=== PATIENT | female | born 1980 | race Hispanic/Latino ===

== ENCOUNTER 2017-02-22 19:17 | Inpatient (IN) | payer SELFPAY ==
[~2017-02-22] VITALS: Ht 157.5 cm; Wt 74.8 kg
[2017-02-22] MEDS ORDERED: METHOTREXATE 1 G1 GM SUB-Q (20:00)
[2017-02-22] MEDS ORDERED: ADVIL200 MG PO (20:01)
[2017-02-22] MEDS ORDERED: ORENCIA125 MG/1 M SUB-Q (20:03)
[2017-02-22] MEDS ORDERED: VITAMIN D1000 UNIT PO (20:05)
[2017-02-25] MEDS ORDERED: MIRALAX17 GM PO (13:00)
[2017-02-25] MEDS ORDERED: CARAFATE1 GM/10 ML PO (13:43)
== END 2017-02-25 14:30 | disposition home or self-care (01) | DRG 392 ==
LOC: ED 19:17 → MS 19:19
PROVIDERS: ADMIT Internal Medicine
DX: A08.4 Viral intestinal infection, unspecified (principal); M06.9 Rheumatoid arthritis, unspecified; T39.391A Poisoning by other nonsteroidal anti-inflammatory drugs [NSAID], accidental (unintentional), initial encounter
CPT/HCPCS: 36415; 74177; 80053; 81001; 82533; 83690; 84703; 85025; 87088; 96361; 96374; 96375; 96376; 99285; G0378; J1170; J2270; J2405; J2550; J7030; J7120; Q9967

== ENCOUNTER 2017-09-17 14:02 | Inpatient (IN) | payer OTHER ==
[~2017-09-17] VITALS: Ht 157.5 cm; Wt 74.1 kg
[~2017-09-17 14:02] MED LIST: ADVIL200 MG PO; CARAFATE1 GM/10 ML PO; METHOTREXATE 1 G1 GM SUB-Q; MIRALAX17 GM PO; ORENCIA125 MG/1 M SUB-Q; VITAMIN D50000 UNI1 PO
--- NOTE | 2017-09-17 21:02 | NUR ---
RECEIVED REPORT FROM ALVIN RN IN ED, AT 2019. PT UP TO VOID, COMPLAINS OF ABDOMINAL DISCOMFORT, NAUSEATED. LR BOLUS INFUSING PER ORDER. PT ABLE TO GET OUT OF BED BY SELF TO BATHROOM. ABLE TO UNDERSTAND AND SPEAK SAUDI ARABIAN. IS NPO, ON ROOM AIR, IV IN LEFT AC. EDUCATED SECURITIES COUNSELOR LIGHT
--- NOTE | 2017-09-17 21:34 | NUR ---
PT LOUDLY HEARD RETCHING, AND VOMITING. APPROX 20 CC GREEN BILE. MED WITH 10 MG REGLAN IV. FAMILY WAS VISTING BUT LEFT. BOLUS CONTINUES PER ORDER, WILL WAIT TO ADM PO MEDICATIONS AT THIS TIME.
--- NOTE | 2017-09-17 21:51 | NUR ---
BS WAS 266, MED WITH 3 UNITS INSULIN PER ORDER, PT STATES SHE FEELS BETTER AFTER THE REGLAN MEDICATION. INSTRUCTED PT TO CALL IF THE IV PUMP ALARMS.
--- NOTE | 2017-09-17 22:12 | NUR ---
pt with eyes closed, resp even and unlabored. bolus complete, LR now infusing at 125 per order call light within reach.
--- NOTE | 2017-09-17 22:42 | NUR ---
IN PT'S ROOM TO ADMINISTER THE REST OF HER MEDICATIONS NOW THAT SHE IS NO LONGER VOMITING. PT STATES SHE FEELS BETTER AND HAS NO PAIN AT THIS TIME. PT DENIES FURTHER NEEDS AT THIS TIME.
--- NOTE | 2017-09-18 01:02 | NUR ---
PT IS RESTING WITH EYES CLOSED, RESPIRATIONS ARE EVEN AND NONLABORED. CALL LIGHT IS WITHIN REACH.
--- NOTE | 2017-09-18 02:48 | NUR ---
WOKE PT TO CHECK BS AND ADMINISTER MEDICATIONS. PT DENIES PAIN AT THIS TIME AND ANY FURTHER NEEDS.
--- NOTE | 2017-09-18 06:16 | NUR ---
WOKE PT TO GIVE MORNING MED. PT DENIES PAIN OR ANY FURTHER NEEDS AT THIS TIME. CALL LIGHT IS WITHIN REACH.
--- NOTE | 2017-09-18 07:53 | NUR ---
BEDSIDE REPORT RECEIVED FROM FOZIA DOYLE. PATIENT AWAKE LYING IN BED. WHITE BOARD UPDATED.
--- NOTE | 2017-09-18 08:35 | NUR ---
SOME BARRIERS TO COMMUNICATION D/T BOLIVIAN A SECOND LANGUAGE FOR PATIENT. IVF INFUSING AT 125. PUMP CLEARED. PATIENT UP TO BATHROOM TO VOID 400ML DARK YELLOW URINE. PATIENT REPORTS NO PAIN/NAUSEA, BUT SOME GRUNTING WHEN AMBULATING TO BATHROOM. NON-SLIP SOCKS PROVIDED TO PATIENT. ACTIVE BOWEL TONES. NO EDEMA. A1C LAB APPEARS TO BE ELEVATED AT 9
--- NOTE | 2017-09-18 10:15 | NUR ---
ANA PUMP TENDER VISITING WITH PATIENT. REPORTED TO THIS RN THAT SHE WAS HAVING ABDOMINAL PAIN. 2MG IV MORPHINE GIVEN. PATIENT ASSISTED TO BATHROOM. VOIDED 450ML. VISITOR AT BEDSIDE. PATIENT BACK IN BED NOW WITH LIGHTS DIM.
--- NOTE | 2017-09-18 12:00 | NUR ---
BLOOD SUGAR 149. CARAFATE GIVEN. DR LI IN TO SEE PATIENT. WILL START ON METFORMIN. AND CLEAR LIQUID DIET STARTED.
--- NOTE | 2017-09-18 12:50 | NUR ---
ANSWERED PT CALL LIGHT. PT VOMITED 300 ML OF EMESIS AND WAS DRY HEAVING. RN NOTIFIED.
--- NOTE | 2017-09-18 13:42 | NUR ---
PT NAUSEOUS AND VOMITING AT 1330. PHENERGAN 12.5MG GIVEN IV. SIGNIFICANT OTHER AT BEDSIDE. COLD CLOTH PROVIDED TO PATIENT.
--- NOTE | 2017-09-18 14:55 | NUR ---
PT RESTING QUIETLY WITH EYES CLOSED IN BED.
--- NOTE | 2017-09-18 18:06 | NUR ---
ACCU CHECKS Q6H. STARTED METFORMIN TODAY. A1C 9.3. CARAFATE BEFORE MEALS. CLEAR LIQUIDS- GO SLOW! ZOFRAN AND PHENERGAN GIVEN TODAY. LR @ 75. SBA TO BATHROOM. WELSH SECOND LANGUAGE.
--- NOTE | 2017-09-18 20:30 | NUR ---
ROUNDED CHARGE. PATIENT IS RESTING IN BED VISITING WITH FAMILY. NO NEEDS NOTED. NO COMMETNS, QUESTIONS, OR CONCERNS. CALL LIGHT IN REACH.
--- NOTE | 2017-09-19 05:03 | NUR ---
Up to brp, voided, back to bed, no c/o pain or requests. Information given verbally and written r/t diabetic teaching given in [place], stated understnading
--- NOTE | 2017-09-19 06:03 | NUR ---
Pt continues on cbg's q6h, teaching given to pt verbally and written in [place], all questions answered to her satisfaction. Pt seems to have a hard time doing fingerstick and giving own insulin when this RN tryed to teach her. Pt has arthritis in hands and it makes it difficult to place a good ggrasp on lancets/syringes. Continue to reinforce teaching. No c/o abd pain or n/v. IVF infusing w/o problems. Pt tolerating clear liquid diet. Up to brp with one assist. [place]ian speaking, all intructions given in [place]ian, all questions answered to pts satisfaction, continue to reinforce diabetic teaching
--- NOTE | 2017-09-19 07:56 | NUR ---
DID PATIENT'S BLOOD SUGAR CHECK ALSO ASKED HER IF SHE WOULD LIKE TO TAKE A SHOWER AND SHE SAID THAT SHE TOOK ONE LAST NIGHT SO SHE DOESN'T WANT ONE TODAY.
--- NOTE | 2017-09-19 10:09 | NUR ---
PATIENT UP TO BATHROOM, PATIENT REPORTS FEELING " HARD STOOL IN LOWER, HAVEN'T POOPED SINCE SATURDAY". DISCUSSED WITH DR. LI NEW ORDER FOR SUPPOSITORY. PROVIDED PATIENT WITH EDUCATION ON METFORMIN IN CITIZ[place] OF [place], DISCUSSED SIDE EFFECTS. REASSURED PATIENT NO NEEDLES, AND DISCUSSED METFORMIN MORE. DISCUSSED HIGH/LOW SIGNS OF SIDE EFFECTS. PATIENT ADVANCED TO FULL LIQUIDS, PROVIDED PATIENT WITH VANILLA PUDDING AND ORDERED MASH POTATO AND GRAVY.
--- NOTE | 2017-09-19 10:28 | NUR ---
MED REC COMPLETE
[2017-09-19] MEDS ORDERED: OMEPRAZOLE20 MG PO (13:15)
[2017-09-19] MEDS ORDERED: METOCLOPRAMIDE H5 MG PO (13:15)
[2017-09-19] MEDS ORDERED: SUCRALFATE1 GM PO (13:16)
[2017-09-19] MEDS ORDERED: METFORMIN HCL500 MG PO (13:16)
== END 2017-09-19 16:05 | disposition home or self-care (01) | DRG 392 ==
LOC: ED 14:02 → MS 20:19
PROVIDERS: ADMIT Internal Medicine
DX: K29.00 Acute gastritis without bleeding (principal); T39.315A Adverse effect of propionic acid derivatives, initial encounter; E11.9 Type 2 diabetes mellitus without complications; M06.9 Rheumatoid arthritis, unspecified; Z79.899 Other long term (current) drug therapy
CPT/HCPCS: 36415; 74177; 80048; 80053; 81001; 83036; 83690; 83735; 84703; 85025; 96366; 96372; 96374; 96375; 99285; J1170; J1650; J2270; J2405; J2550; J2765; J7120; Q9967

== ENCOUNTER 2020-01-05 16:33 | Emergency (ER) | payer SELFPAY ==
[~2020-01-05] VITALS: Ht 157.5 cm; Wt 74.1 kg
--- OUTSIDE RECORDS SUMMARY | ~2020-01-05 | XMS | Encounter Summary ---
Demographics + + + | Address | [address] | | | [place] [address] | + + + | Home Phone | | + + + | Preferred Language | Unknown | + + + | Marital Status | | + + + | Quaker Affiliation | Unknown | + + + | Race | White | + + + | Ethnic Group | or | + + + Author + + + | Author | [facility] | + + + | Organization | [facility] | + + + | Address | Unknown | + + + | Phone | Unavailable | + + + Support + + +---------+ + | Name | Relationship | Address | Phone | + + +---------+ + | Brittanie Remy | ECON | Unknown | | + + +---------+ + Care Team Providers + +------+ + | Care Button Clamper Name | Role | Phone | + +------+ + | Isacc Chi | PCP | | + +------+ + Reason for Visit + + + | Reason | Comments | + + + | RA - Rheumatoid | | | arthritis | | + + + | Medication | | | management | | + + + | Follow-up visit | | + + + Intake Referral (Routine) +--------+--------+ + + + + | Status | Reason | Specialty | Diagnoses / | Referred By | Referred To | | | | | Procedures | Contact | Contact | +--------+--------+ + + + + | Closed | | Rheumatology | Diagnoses | Tieelbert, | [facility] [facility] | | | | | Rheumatoid | Isacc Briones, | [facility] [address] | | | | | arthritis, | [place] | [facility] | | | | | unspecified | Medical | Loop | | | | | | [facility] [address] | Physician's | | | | | [address] | [address], [address] | | | | | | Street | Floor | | | | | | [place], [place] | [place], [place] | | | | | | [address] | [address] | | | | | | Phone: | Phone: | | | | | | [phone] | [phone] | | | | | | Fax: | Fax: | | | | | | [phone] | [phone] | +--------+--------+ + + + + Encounter Details +--------+---------+ + + + | Date | Type | Department | Care Team | Description | +--------+---------+ + + + | 12/26/ | Office | Rheumatology at | Afshan Wright | 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 | | 2016 | Visit | Physicians 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, [employer]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 [address] | rheumatoid arthritis | | | | [address] | [address] | ([facility]) (Primary Dx); | | | | Loop Physician's | [place], [place] | Long-term use of | | | | Pavilion, 4th Floor | [address] | high-risk | | | | [place], [place] | [phone] | medication; Neck | | | | [address] | | pain | | | | [phone] | | | +--------+---------+ + + + Social History + +-------+ +--------+------+ | Tobacco Use | Types | Packs/Day | Years | Date | | | | | Used | | + +-------+ +--------+------+ | Never Smoker | | | | | + +-------+ +--------+------+ + + +---------+ + | Alcohol Use | Drinks/Week | oz/Week | Comments | + + +---------+ + | Not Asked | 0 Standard drinks | 0.0 | | | | or equivalent | | | + + +---------+ + + + + | Sex Assigned at | Date Recorded | | | | + + + | Not on file | | + + + documented as of this encounter Last Filed Vital Signs + + + + + | Vital Sign | Reading | Time Taken | Comments | + + + + + | Blood Pressure | 122/74 | 12/27/2015 1:25 PM | | | | | PDT | | + + + + + | Pulse | 84 | 12/27/2015 1:25 PM | | | | | PDT | | + + + + + | Temperature | - | - | | + + + + + | Respiratory Rate | - | - | | + + + + + | Oxygen Saturation | - | - | | + + + + + | Inhaled Oxygen | - | - | | | Concentration | | | | + + + + + | Weight | 76.7 kg (169 lb) | 12/27/2015 1:25 PM | | | | | PDT | | + + + + + | Height | 157.5 cm (5' 2") | 12/27/2015 1:25 PM | | | | | PDT | | + + + + + | Body Mass Index | 30.91 | 12/27/2015 1:25 PM | | | | | PDT | | + + + + + documented in this encounter Patient Instructions Patient Instructions Afshan Wright FNP - 12/27/2015 1:46 PM PDTSTOP XELJANZ abatacept Renetta: Abbiia Qu es abatacept? Abatacept es alannah protena hecha por el hombre que previene el sistema inmunolgico de traore cuerpo de atacar tejidos gt las articulaciones. El sistema inmunolgico de traore cuerpo a co mbatir las infecciones. En personas con trastornos autoinmunes, el sistema inmunolgico con funde las clulas de traore propio cuerpo por invasoras y las ataca. Abatacept se usa para el tratamiento de los sntomas de la artritis reumatoide, y para pre venir el shamar a las articulaciones que causan estas condiciones. Tambin se usa para el tr atamiento de la artritis en los nios que tienen por lo menos 6 aos de edad. Abatacept no es alannah sharee para ningn trastorno auto inmunolgico y slo tratar los s ntomas de traore condicin. Abatacept puede tambin usarse para fines no mencionados en esta gua del medicamento. Qu debera discutir con el profesional del cuidado de la anil antes de usar abatacept ? Usted no debe usar abatacept si es alrgico a sta, o si tambin est usando anakinra ( Kineret), etanercept (Enbrel), adalimumab (Humira), certolizumab (Cimzia), golimumab (Simpon i), infliximab (Remicade), natalizumab (Tysabri), rituximab (Rituxan), o tocilizumab (Actemr a). Antes de usar abatacept, dgale a traore mdico si usted cruz tenido tuberculosis, si alguna pe rsona en traore casa cruz tenido tuberculosis, o si usted recientemente cruz viajado a alguna dolores donde la tuberculosis es comn. Para asegurarse que abatacept es seguro para usted, dgale a traore mdico si usted tiene: un sistema inmune dbil; cualquier tipo de infeccin que incluye alannah infeccin de la piel o llagas abiertas; infecciones que desaparecen y vuelven a aparecer; EPOC (enfermedad pulmonar obstructiva crnica, COPD, por xin siglas en Ingls); diabetes; si alguna vez cruz tenido hepatitis; o si est listo para recibir alguna vacuna. El uso de abatacept puede aumentar traore riesgo de desarrollar algunos tipos de cncer gt l infoma (cncer de los ndulos linfticos). Suzy riesgo puede ser mayor en los adultos de edad avanzada. Hable con traore mdico acerca de xin riesgos personales. No se conoce si abatacept causar shamar al beb jacoby. Dgale a traore mdico si usted est embarazada o planea quedar embarazada. Si usted est embarazada, traore nombre jm vez est enlistado en un registro del embarazo. E sto es para seguir el resultado del embarazo y para evaluar cualquier efecto de abatacept en el beb. No se sabe si abatacept pasa a la leche materna o si le puede hacer shamar al beb lactante . Usted no debe amamantar mientras est tomando esta medicina. Los nios que estn usando abatacept deben estar al da con todas las inmunizaciones de la niez antes de empezar tratamiento. Clinical Registered Nurse ariella usar abatacept? Antes de empezar el tratamiento con abatacept, es probable que traore mdico le joanne exmenes para asegurarse que usted no tiene tuberculosis u otras infecciones. Abatacept es inyectado bajo la piel, o en alannah vena a travs de alannah inyeccin intravenosa. Jm vez le muestren gt usar las inyecciones en traore casa. No se inyecte esta medicina si no entiende completamente spring internship aplicarse la inyeccin y deshacerse apropiadamente de las jodie briseida y jeringas usadas, el tubo de intravenosa, y las otras cosas que se usan para administra r la medicina. Abatacept debe de ser inyectado lentamente cuando se inyecta en alannah vena, y la perfusin i ntravenosa puede jayde por lo menos 30 minutos para completarse. Esta medicina por lo general se inyecta cada 1 a 4 semanas. Siga las instrucciones de traore m dico. Usted puede necesitar mezclar abatacept con un lquido (diluyente) antes de usarla. Si est usando la inyeccin en traore casa, asegrese de entender gt mezclar y guardar la medicin a. No agite la botella del medicamento o podra arruinar la medicina. Prepare traore dosis slo cuando est listo para ponerse la inyeccin. No use la medicina si cruz cambiado de color o tiene partculas por dentro. Llame a traore farmacutico para recibir alannah medicina nueva. Cada vial (botella) o jeringa prellenada de uso korin de esta medicina es para usarla alannah vez. Bote despus de usarlo alannah vez, aunque tenga todava algo de medicina despus de iny ectarse traore dosis. Use alannah aguja y jeringa desechable slo alannah vez. Siga cualquier antwan local o estatal acerca de spring internship desechar las agujas y jeringas usadas. Use un contenedor para elementos corto punz antes (pregntele a traore farmacutico acerca de spring internship conseguir taiwo y spring internship desecharlo). Man tenga suzy contenedor fuera del alcance de los nios y mascotas. Si necesite ciruga, dgale al cirujano en adelantado que usted est usando abatacept. Si usted alguna vez cruz tenido hepatitis B, abatacept puede causar que esta condicin regre se o empeore. Usted va a necesitar exmenes de tanesha con frecuencia para chequear la funci n de traore hgado marie el tratamiento, y hasta por varios meses despus de dejar de usar esta medicina. Esta medicina puede causar resultados falsos con ciertas pruebas del azcar en la tanesha, mostrando altos niveles de azcar en la tanesha. Si usted sufre de diabetes, hable con traore m dico acerca de la mejor manera de chequear traore nivel de azcar en la tanesha mientras est usando abatacept. Los trastornos auto inmunolgicos con frecuencia se tratan con alannah combinacin de varias drogas. Use todos xin medicamentos gt le indic traore mdico. Christiano la gua del medicamento o las instrucciones para el paciente que vienen con cada medicamento. No cambie la dosis o e l horario de xin medicamentos sin el consejo de traore mdico. Guarde abatacept en el refrigerador. No la congele. Mantenga la medicina en traore caja origina l para protegerla glenis. No use abatacept si la fecha de vencimiento en la etiqueta ya h a pasado. Si tiene que transportar la medicina, coloque las jeringas con paquetes de hielo en alannah nev era porttil. Abatacept que cruz sido mezclado con un diluyente puede guardarse en un refrigerador o a temp eratura ambiente y usarse dentro de las 24 horas. Qu sucede si me basia alannah dosis? Llame a traore mdico para instrucciones si anthony de recibir alannah dosis de abatacept. Qu sucedera en alannah sobredosis? Busque atencin mdica de emergencia o llame a la lnea de [facility] al . Qu ariella evitar mientras uso abatacept? No reciba alannah vacuna "viva" mientras usa abatacept, y por un mnimo de 3 meses despus de que termine traore tratamiento. La vacuna quizs no funcione jones mata marie suzy periodo, y jm vez no lo proteja por completo de la enfermedad. Las vacunas zulema incluyen sarampin, paperas, rubola (MMR), polio, rotavirus, tifoidea, fiebre amarilla, varicela, zster (cul ebrilla), y la vacuna nasal para la influenza. Evite estar en contacto con personas enfermas o que tengan infecciones. Hable con traore mdic o de inmediato si usted desarrolla sntomas de infeccin. Cules son los efectos secundarios posibles de abatacept? Algunos efectos secundarios pueden ocurrir marie la inyeccin. Dgale de inmediato a la persona que lo cuida si usted se siente mareado, que siente que se puede desmayar, tiene pi cazn, o tiene dolor de brielle intenso o dificultad para respirar dentro de 1 hora despus de recibir la inyeccin. Busque atencin mdica de emergencia si usted tiene sntomas de alannah reaccin alrgica: ronchas; dificultad para respirar; hinchazn de la luis a, labios, lengua, o garganta. Infecciones graves, y a veces fatales pueden ocurrir marie el tratamiento con abatacept. Deje de usar esta medicina y llame de inmediato a traore mdico si usted tiene sntomas de inf eccin, gt: fiebre, escalofros, sudores nocturnos, sntomas de la gripe, prdida de peso; sentirse muy cansado; tos seca, dolor de garganta; o calor, dolor, o rojez de traore piel. Llame a traore mdico de inmediato si usted tiene: dificultad para respirar; dolor punzante del pecho, silbido, tos con moco amarillo o shannan; dolor o quemazn al orinar; o sntomas de alannah infeccin de la piel, gt picazn, hinchazn, calentura, rojez, o s upuracin. Efectos secundarios comunes pueden incluir: fiebre; nusea, diarrea, dolor del estmago; dolor de brielle; o sntomas de resfriado gt nariz tupida, estornudo, dolor de garganta, tos. Esta lista no menciona todos los efectos secundarios y puede ser que ocurran otros. Llame a traore mdico para consejos mdicos relacionados a efectos secundarios. Usted puede reportar efectos secundarios llamando al FDA al [phone]. Qu otras drogas afectarn a abatacept? Otras drogas pueden interactuar con abatacept, incluyendo medicinas que se obtienen con o s in receta, vitaminas, y productos herbarios. Dgale a cada taiwo de xin proveedores de anil acerca de todas las medicinas que usted est usando ahora, y cualquier medicina que usted c omience o deje de usar. Dnde puedo obtener ms informacin? Traore farmacutico le puede jesus ms informacin acerca de abatacept. Recuerde, mantenga sta y todas las otras medicinas fuera del alcance de los nios, no co mparta nunca xin medicinas con otros, y use suzy medicamento slo para la condicin por la que fue recetada. Se cruz hecho todo lo posible para que la informacin que proviene de Inc. Michaela (' [employer]') sea precisa, actual, y completa, alana no se hace garanta de jm. La informacin sobre el medicamento incluida aqu puede tener nuevas recomendaciones. La informacin prep arada por [employer] se cruz creado para uso del profesional de la anil y para el consumidor en l os [place] y por lo cual [employer] no certifica que el uso fue ra de los [place] sea apropiado, a menos que se mencione especficamente lo cual. La informa margi de [employer] sobre drogas no sanciona drogas, ni diagnstica al paciente o recomienda te rapia. La informacin de [employer] sobre drogas sirve gt alannah mahesh de informacin disead a para la ayuda del profesional de la anil licenciado en el cuidado de xin pacientes y/o pa ra servir al consumidor que reciba suzy servicio gt un suplemento a, y no gt sustituto d e la competencia, experiencia, conocimiento y opinin del profesional de la anil. La ausen danuta en ron de alannah advertencia para alannah droga o combinacin de drogas no debe, de ninguna forma, interpretarse gt que la droga o la combinacin de drogas aimee seguras, efectivas, o apropiadas para cualquier paciente. [employer] no se responsabiliza por ningn aspecto del cu idado mdico que reciba con la ayuda de la informacin que proviene de [employer]. La informac in incluida aqu no se cruz creado con la intencin de cubrir todos los usos posibles, ins trucciones, precauciones, advertencias, interacciones con otras drogas, reacciones alrgica s, o efectos secundarios. Si usted tiene alguna pregunta acerca de las drogas que est cruz ndo, consulte con traore mdico, enfermera, o farmacutico. Copyright [id number] [employer]iza [employer], [employer]. Version: 6.03. Revision date: 10/19/2014. Esta informacin no reemplaza la consulta mdica. [employer] niega toda gar anta y responsabilidad por el uso de esta informacin. Versloren del contenido: [id number] documented in this encounter Progress Notes Afshan Wright FNP - 12/27/2015 1:35 PM PDTFormatting of this note might be differe nt from the original. Progress Note Clinic: Rheumatology Reason for follow-up: Chief Complaint Patient presents with RA - Rheumatoid arthritis Medication management Follow-up visit Ms. Sandrita Queen was last seen November 09, 2015. She returns today for reeval and to discuss the diagnostic findings. She has been significantly more functional on prednisone. She is working a lot and finds it difficult to get time off work. The travel time here is ~4 hours. Complains of recurrent episodes of "high neck pain." These can come several times per mo or every several mo. They usual last 1-3 d. Finds it difficult to turn her head. There are no issues in-between episodes. EMS 60-120 min. ROS: General: Intermittent fever, weight loss >10#, night sweats, unusual fatigue. Skin: Rash or hives, sun-induced rash, alopecia. For the last 6 mo. HEENT: Dry eyes, vision issues, tinnitus, congestion, sores in mouth, dry mouth, loss of s hal or taste. Pulm: Cough, SOB, wheezing, h/o pleurisy, hemoptysis. CV: CP, palpitations, PHILLIPS, PND, edema, hands change color in cold. GI: Dysphagia, abdominal pain or cramps, GERD, nausea, vomiting, constipation, diarrhea, m dedra. : Dysuria, LEGAL JOB TITLES problems, sexual dysfunction. Neuro: Dizziness, loss of balance, weakness, paralysis, syncope, paresthesias, headaches. Full hand numbness b/l just for the last wk- not using folic acid at all- didn't realize it was needed. MSK: Myalgia, hand swelling, ankle swelling, swelling in other joints, arthralgia, back pa in, neck pain. Psych: Depression, anxiety, issues with concentration or memory, sleep disturbance, probl ems with social activities. Past Medical History: Past Medical History Diagnosis Date 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 rheumatoid arthritis (HCC) Medications: Current Outpatient Prescriptions Medication Sig abatacept (ORENCIA) 125 mg/mL subcutaneous syringe Inject 125 mg under the skin (SUBC) every seven days. LABEL IN [place]. DISCONTINUE ALL XELJANZ REFILLS. ibuprofen (ADVIL) 100 mg oral tablet Take 100 mg by mouth every six hours as needed. methotrexate 25 mg/mL injection solution Inject 1 mL into the muscle (IM) every seven d ays. Indications: RHEUMATOID ARTHRITIS predniSONE 5 mg oral tablet Take 2 tablets by mouth once daily. LABEL IN [place] No current facility-administered medications for this visit. Allergies: Review of patient's allergies indicates no known allergies. Social History: Dominga reports that she has never smoked. She does not have any smokeless to bacco history on file. Family History: family history includes Non-contributory in her brother, father, mother, an d sister. Physical Exam: BP 122/74 | Pulse 84 | Ht 1.575 m (5' 2") | Wt 76.658 kg (169 lb) | BMI 30.9 kg/(m^2) Pain Score: 7 Rapid 3 MHAQ: 2.7 (12/27/15 1300) PAIN LEVEL: 8 (12/27/15 1300) GLOBAL ASSESSMENT: 6.5 (12/27/15 1300) RAPID 3: 5.73 (12/27/15 1300) Gen: Well nourished, well developed, in NAD HEENT: unremarkable Neck: tender at occiput cervical Ext: No clubbing, cyanosis, or edema M/S: see LARIOS 28 Skin: no abnormalities Neuro: normal Labs: Lab Results Component Value Date WBC 8.64 11/29/2015 RBC 4.19 11/29/2015 HCT 37.2 11/29/2015 HB 12.3 11/29/2015 MCV 88.8 11/29/2015 MCHC 33.1 11/29/2015 PLT 255 11/29/2015 NEUTROPERC 64.6 11/29/2015 LYMPHPERC 23.3 11/29/2015 MONOPERC 8.4 11/29/2015 EOSPERC 2.7 11/29/2015 BASOPERC 0.7 11/29/2015 NEUTROPHILCO 5.58 11/29/2015 GLU 91 11/29/2015 BUN 12 11/29/2015 CR 0.56* 11/29/2015 TP 8.3* 11/29/2015 ALB 4.0 11/29/2015 CA 9.3 11/29/2015 TBILI 0.6 11/29/2015 AP 109* 11/29/2015 AST 30 11/29/2015 NA 137 11/29/2015 K 3.8 11/29/2015 CL 102 11/29/2015 BICARB 26 11/29/2015 ALT 57 11/29/2015 Lab Results Component Value Date ESR 29* 11/29/2015 Impression: This is a 35 y.o. female here for follow up of seropositive RA. I reviewed the patient s questionnaire which included more than 10 review of systems, ans wered all questions raised, and provided counseling and education. Functional Assessment: RHM FLOWSHEET 11/29/2015 11/29/2015 12/27/2015 12/27/2015 RAPID 3 6.1 5.73 Total Tender Joints 18 19 Total Swollen Joints 6 9 ESR 29 Global Health Value 7 6.5 DAS28 Score 5.5 Disease Activity Level High Recommendations: 1. Discontinue tofacitinib d/t lack of efficacy. 2. Start abatacept 125mg SQ q7d. Educated regarding safe use and possible side effects as well as precautions. 3. Medication assistance request sent to our pharmacist Maribel Alex.D. 4. In the interim we may use prednisone at 10mg daily and taper over the next 2 mo. 5. C-spine x-ray today. 6. Though I would like to see Ms. Sandrita Queen monthly, the distance and time off work is onerous for her and so we've agreed on a 2 mo regimen until her arthritis is controlled. [facility] [address] [place] [address] Mailcode: Op09 [facility], [address] [facility] [id number] Display Progress Note in MyChart: No documented in t his encounter Plan of Treatment Not on filedocumented as of this encounter Results X-RAY SPINE CERVICAL 2 VIEWS FLEXION/EXTENSION (12/27/2015 2:43 PM PDT) + + + + + + | Component | Value | Ref Range | Performed | Pathologist | | | | | At | Signature | + + + + + + | SPINE | STUDY: SPINE CERVICAL 2 | | | | | CERVICAL 2 | VWS FLEX/EXT 12/27/15 | | | | | VIEW | 14:43:00 HISTORY: | | | | | FLEX/EXT | Rheumatoid arthritis. | | | | | | COMPARISON: None. | | | | | | FINDINGS: The | | | | | | atlanto-dens interval | | | | | | measures 1 mm in | | | | | | extension and 3 mm in | | | | | | flexion.Alignment | | | | | | elsewhere is | | | | | | unremarkable, without | | | | | | dynamic instability. | | | | | | There is nofracture or | | | | | | osseous destructive | | | | | | lesion. There is mild | | | | | | C5-C6 endplate | | | | | | spurringand disc space | | | | | | narrowing. Vertebral | | | | | | body height are | | | | | | maintained. There is | | | | | | nodynamic listhesis. | | | | | | The craniocervical and | | | | | | C1-C2 relationships are | | | | | | maintained.No erosion | | | | | | is seen. The | | | | | | prevertebral soft | | | | | | tissues are within | | | | | | normal limits. | | | | | | IMPRESSION: 2 mm of | | | | | | atlantoaxial motion | | | | | | between flexion and | | | | | | extension. Otherwise | | | | | | normalalignment. Mild | | | | | | C5-C6 degenerative disc | | | | | | disease. Attending | | | | | | Radiologists: EDIN DIEGO, | | | | | | MDAuthor: EAGLE GARCIA | | | | | | I personally reviewed | | | | | | the images and, if | | | | | | necessary, edited the | | | | | | report. I agreewith the | | | | | | report as now presented. | | | | | | | | | | | | Final/Electronically | | | | | | signed / EDIN DIEGO | | | | | | 12/27/2015 15:05 PM | | | | + + + + + + + + | Specimen | + + | | + + + +---------+ + + | Performing | Address | City/State/Zipcode | Phone Number | | Organization | | | | + +---------+ + + | [facility] DEPARTMENT OF | | | | | RADIOLOGY | | | | + +---------+ + + documented in this encounter Visit Diagnoses + + | Diagnosis | + + | 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 rheumatoid arthritis (HCC) - Primary Rheumatoid arthritis | + + | Long-term use of high-risk medication | + + | Neck pain Cervicalgia | + + documented in this encounter
--- OUTSIDE RECORDS SUMMARY | ~2020-01-05 | XMS | Encounter Summary ---
Demographics + + + | Address | [address] | | | [place] [address] | + + + | Home Phone | | + + + | Preferred Language | Unknown | + + + | Marital Status | | + + + | Religion Affiliation | Unknown | + + + | Race | White | + + + | Ethnic Group | or | + + + Author + + + | Author | [facility] | + + + | Organization | [facility] | + + + | Address | Unknown | + + + | Phone | Unavailable | + + + Support + + +---------+ + | Name | Relationship | Address | Phone | + + +---------+ + | Brittanie Remy | ECON | Unknown | | + + +---------+ + Care Team Providers + +------+ + | Care Farmworker Diversified Crops Name | Role | Phone | + +------+ + | Stephanie Miller MD | PCP | | + +------+ + Reason for Visit + +--------+ + | Reason | Onset | Comments | | | Date | | + +--------+ + | Refill Request | 02/20/ | vitamin d 50 k u | | | 2017 | | + +--------+ + Encounter Details +--------+--------+ + + + | Date | Type | Department | Care Team | Description | +--------+--------+ + + + | 02/20/ | Refill | Rheumatology at | [facility] | Refill Request | | 2018 | | Physicians [place] [facility] PIPELINER [address] | (vitamin d 50 k u) | | | | [address] | [facility] | | | | | Loop Physician's | [place], [place] | | | | | [place], [facility] Floor | [address] | | | | | [place], [place] | [phone] | | | | | [address] | | | | | | [phone] | | | +--------+--------+ + + + Social History + +-------+ +--------+------+ | Tobacco Use | Types | Packs/Day | Years | Date | | | | | Used | | + +-------+ +--------+------+ | Never Smoker | | | | | + +-------+ +--------+------+ + +---+---+---+ | Smokeless Tobacco: | | | | | Never Used | | | | + +---+---+---+ + + +---------+ + | Alcohol Use [...] + + documented as of this encounter Miscellaneous Notes Telephone Encounter - Dominga Nichole - 02/20/2018 12:16 PM PDT Requested Prescriptions Pending Prescriptions Disp Refills VITAMIN D2 50,000 unit oral capsule [Pharmacy Med Name: VITAMIN D2 (ERGO)50,000 IU CAP] 12 capsule 0 Sig: TAKE 1 CAPSULE BY MOUTH ONCE A WEEK [facility] [address] [place] [address] Next Appointment in [facility] P[facility] is on 05/29/18 at 10:50 am with RAMON Nunn P. 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 Date of last CBC/CMP: yesterday documented in this encount er Plan of Treatment Not on filedocumented as of this encounter Visit Diagnoses Not on filedocumented in this encounter"
--- OUTSIDE RECORDS SUMMARY | ~2020-01-05 | XMS | Encounter Summary ---
Demographics + + + | Address | [address] | | | [place] [address] | + + + | Home Phone | | + + + | Preferred Language | Unknown | + + + | Marital Status | | + + + | Lutheran Affiliation | Unknown | + + + | Race | White | + + + | Ethnic Group | or | + + + Author + + + | Author | [facility] | + + + | Organization | [facility] | + + + | Address | Unknown | + + + | Phone | Unavailable | + + + Support + + +---------+ + | Name | Relationship | Address | Phone | + + +---------+ + | Brittanie Remy | ECON | Unknown | | + + +---------+ + Care Team Providers + +------+ + | Care Copy Reader Name | Role | Phone | + +------+ + | Stephanie Miller MD | PCP | | + +------+ + Encounter Details +--------+ + + + + | Date | Type | Department | Care Team | Description | +--------+ + + + + | 05/21/ | Pharmacy | [facility] | | | | 2019 | Visit | [address], [place] | | | | | | [facility] [address] | | | | | | [place] [address] | | | | | | [phone] | | | +--------+ + + + + Social History + +-------+ [...] + + documented as of this encounter Plan of Treatment Not on filedocumented as of this encounter Visit Diagnoses Not on filedocumented in this encounter"
--- OUTSIDE RECORDS SUMMARY | ~2020-01-05 | XMS | Encounter Summary ---
Demographics + + + | Address | [address] | | | [place] [address] | + + + | Home Phone | | + + + | Preferred Language | Unknown | + + + | Marital Status | | + + + | Baptism Affiliation | Unknown | + + + | Race | White | + + + | Ethnic Group | or | + + + Author + + + | Author | [facility] | + + + | Organization | [facility] | + + + | Address | Unknown | + + + | Phone | Unavailable | + + + Support + + +---------+ + | Name | Relationship | Address | Phone | + + +---------+ + | Brittanie Remy | ECON | Unknown | | + + +---------+ + Care Team Providers + +------+ + | Care News Clipping Cutter Name | Role | Phone | + +------+ + | Stephanie Miller MD | PCP | | + +------+ + Reason for Visit + +--------+ + | Reason | Onset | Comments | | | Date | | + +--------+ + | Financial resource | 06/26/ | Maryann | | assistance | 2018 | | + +--------+ + Encounter Details +--------+ + + + + | Date | Type | Department | Care Team | Description | +--------+ + + + + | 06/26/ | Telephone | Medication | Abby Lombardi, | Financial resource | | 2018 | | Assistance Pr | [facility] [address] | assistance (Orencia) | | | | Pharmacy [address] | [facility] | | | | | [facility] | [place], [place] | | | | | [place], [place] | [address] | | | | | [address] | [phone] | | | | | [phone] | | | +--------+ + + + [...] this encounter Miscellaneous Notes Telephone Encounter - Yogi Yeboah - 04/10/2018 4:27 PM BANNER Status Update: Received completed refill request form, submitted to [facility] for review. elephone Encounter - Junior yLnne MA - 04/08/2018 12:41 PM PSTFaxed signed provider portion of [facility] paperwork to [phone]. elephone Encounter - Jacqui Miller - 04/08/2018 12:07 PM PSTBrBelkin International is requesting provider sign ature on a refill form for the patient's Orencia medication. [facility] has emailed the form to Paulie Lynne for provider signature. Once completed, please return to [facility]. Next [facility] follow up: 1 week P STTelephone Encounter - Vinay Florian PharmD - 02/03/2018 2:40 PM PDT1. Forwarding message and email to SOPHIE Pacheco as she works on all related [facility] issues. 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 [facility] has emailed this form to [facility] for completion. When returned [facility] will forward to cigarette making machine operator. elephone Encounter - Abby Lombardi CPhT - 06/26/2017 2:21 PM PSTMAP Status Update: Orencia Patient is approved in the [employer] patient assistance program for the Orencia medication from 06/24/17 until 06/24/18. M for patient to provide [facility] phone number [phone] for obtaining refills of medication. documented in this encounter Plan of Treatment Not on filedocumented as of this encounter Visit Diagnoses Not on filedocumented in this encounter"
--- OUTSIDE RECORDS SUMMARY | ~2020-01-05 | XMS | Encounter Summary ---
Demographics + + + | Address | [address] | | | [place] [address] | + + + | Home Phone | | + + + | Preferred Language | Unknown | + + + | Marital Status | | + + + | Hoahaoism Affiliation | Unknown | + + + | Race | White | + + + | Ethnic Group | or | + + + Author + + + | Author | [facility] | + + + | Organization | [facility] | + + + | Address | Unknown | + + + | Phone | Unavailable | + + + Support + + +---------+ + | Name | Relationship | Address | Phone | + + +---------+ + | Brittanie Remy | ECON | Unknown | | + + +---------+ + Care Team Providers + +------+ + | Care Product Development Intern Name | Role | Phone | + +------+ + | Isacc Chi | PCP | | + +------+ + Reason for Visit + + + | Reason | Comments | + + + | Medication | Mtx | + + + | Evaluation of test | LFT | | results | | + + + | Vitamin D Deficiency | | + + + Encounter Details +--------+ + + + + | Date | Type | Department | Care Team | Description | +--------+ + + + + | 08/25/ | 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 D/C m ethotrexate. They will contact patient regarding her Vitamin D prescription and inform her how to take i t. Faxed notes for PCP to PCP office.Electronically signed by Deedee Lynne MA at 8 3:16 PM PDTTelephone Encounter - Deedee Lynne MA - 08/28/2017 3:01 PM PDTCalled pat ient with the assistance of [employer]. Informed patient that her liver function tests continue to be high and she needs to stop al l methotrexate. Informed her that she will need her liver rechecked at her PCP office two w eeks after she has stopped her mtx. Informed her about her orencia and the need to see us sooner if her arthritis does not get better. Then we were disconnected. Faxing information to PCP office to follow up on concerns. I am contacting her pharmacy to discontinue her mtx. elephone Encounter - Afshan Wright FNP - 08/25/2017 3:03 PM PDTPlease call patient- needs information services manager. Several issues. 1. Liver function tests continue to be high. She needs to stop methotrexate all together. I would like her to have her liver rechecked at Dr. Chi's office after she has stopped it for 2 full weeks. 2. She is to continue Orencia. There is no problem using that. It should continue to cont rol her arthritis but if it doesn't she needs to come see me sooner then the 4mo we schedule d. 3. In her labs her blood sugar was 240. Normal is less than 140 so it's more than 100 poin ts elevated. This value is consistent with diabetes. I have sent the letter to her doctor and want her to be seen as soon as she can. 4. Finally, her vitamin D remains low. I have reordered her high dose at her pharmacy. - Then please also call her pharmacy and make sure they cancel all methotrexate refills for h er. She should not be dispensed this medication again. Also, call PCP and make sure they got the letter and will call patient to come in this week . SUAD Nunn ARNP RHEUMATOLOGY FACULTY [facility] Mailcode: [id number] [facility], 4th Floor [facility] [id number] documented in t his encounter Plan of Treatment Not on filedocumented as of this encounter Visit Diagnoses Not on filedocumented in this encounter"
--- OUTSIDE RECORDS SUMMARY | ~2020-01-05 | XMS | Encounter Summary ---
Demographics + + + | Address | [address] | | | [place] [address] | + + + | Home Phone | | + + + | Preferred Language | Unknown | + + + | Marital Status | | + + + | Episcopalian Affiliation | Unknown | + + + | Race | White | + + + | Ethnic Group | or | + + + Author + + + | Author | [facility] | + + + | Organization | [facility] | + + + | Address | Unknown | + + + | Phone | Unavailable | + + + Support + + +---------+ + | Name | Relationship | Address | Phone | + + +---------+ + | Brittanie Remy | ECON | Unknown | | + + +---------+ + Care Team Providers + +------+ + | Care Camp Counselor Name | Role | Phone | + +------+ + | Stephanie Miller MD | PCP | | + +------+ + Reason for Visit + +--------+ + | Reason | Onset | Comments | | | Date | | + +--------+ + | Refill Request | 04/01/ | johnia | | | 2018 | | + +--------+ + Encounter Details +--------+--------+ + + + | Date | Type | Department | Care Team | Description | +--------+--------+ + + + | 11/27/ | Refill | Rheumatology at | Schreibman, Afshan | Refill Request | | 2018 | | Physicians [facility] COOLING TOWER TECHNICIAN [address] | (shabbir) | | | | [address] | [address] | | | | | Loop Physician's | [place], [place] | | | | | [address], [address] Floor | [address] | | | | | [place], [place] | [phone] | | | | | [address] | | | | | | [phone] | | | +--------+--------+ + + + [...] Telephone Encounter - Deedee Lynne MA - 04/02/2018 1:49 PM PST Requested Prescriptions Pending Prescriptions Disp Refills abatacept (ORENCIA) 125 mg/mL subcutaneous syringe 12 Syringe 3 Sig: Inject 125 mg under the skin (SUBC) every seven days. LABEL IN [facility] [place] [facility] [address] [place] [address] Fax: [phone] Next Appointment in [facility] P[facility] is on 05/29/18 at 10:50 am with RAMON Nunn. Last Appointment in [facility] P[facility] was on 10/17/18 at 3:41 pm with Dominique Nunn NP. Date of last CBC/CMP: 02/19/2018 elephone Encounter - Patrice Lyons - 04/01/2018 3:25 PM PSTPt called asking for new orencia Rx. Said she was n't sure where to call to request since it comes through [facility]. Asks for call back if there is somewhere else she needs to call to obtain this. Routing to Aliya Lynne doc umented in this encounter Plan of Treatment Not on filedocumented as of this encounter Visit Diagnoses Not on filedocumented in this encounter"
--- OUTSIDE RECORDS SUMMARY | ~2020-01-05 | XMS | Encounter Summary ---
Demographics + + + | Address | [address] | | | [place] [address] | + + + | Home Phone | | + + + | Preferred Language | Unknown | + + + | Marital Status | | + + + | Methodist Affiliation | Unknown | + + + | Race | White | + + + | Ethnic Group | or | + + + Author + + + | Author | [facility] | + + + | Organization | [facility] | + + + | Address | Unknown | + + + | Phone | Unavailable | + + + Support + + +---------+ + | Name | Relationship | Address | Phone | + + +---------+ + | Brittanie Remy | ECON | Unknown | | + + +---------+ + Care Team Providers + +------+ + | Care Chief Engineer Name | Role | Phone | + [...] Follow-up visit | | + + + Office Visit - E/M Services (Routine) +--------+--------+ + + + + | Status | Reason | Specialty | Diagnoses / | Referred By | Referred To | | | | | Procedures | Contact | Contact | +--------+--------+ + + + + | Closed | | Rheumatology | Diagnoses | Miller, | Schdanny, | | | | | Rheumatoid | Stephanie Fox MD | Afshan A, | | | | | arthritis | [address] | 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 [address] | | | | | with | St | [address] | | | | | rheumatoid | Rajesh, | Char[address] | | | | | factor, | [place] [address] | [place], [place] | | | | | unspecified | Phone: | [phone] | | | | | Procedures | [phone] | Phone: | | | | | UT EST | Fax: | [phone] | | | | | PATIENT | [phone] | Fax: | | | | | LEVEL V | | [phone] | +--------+--------+ + + + + Encounter Details +--------+---------+ + + + | Date | Type | Department | Care Team | Description | +--------+---------+ + + + | 10/17/ | Office | Rheumatology at | Afshan Wright | 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 | | 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 | | | | [address] | [address] | ([facility]) (Primary Dx); | | | | [facility] | [place], [place] | Long-term use of | | | | Pavilion, 4th Floor | [address] | high-risk | | | | [place], [place] | [phone] | medication; Need for | | | | [address] | | influenza | | | | [phone] | | vaccination; Acute | | | | | | right ankle pain; | | | | | | Vitamin D deficiency | +--------+---------+ + + + Social History [...] + + + | Blood Pressure | 108/72 | 02/19/2018 11:00 AM | | | | | PDT | | + + + + + | Pulse | 88 | 02/19/2018 11:00 AM | | | | | PDT | [...] + + + + | Weight | 69.9 kg (154 lb) | 02/19/2018 11:00 AM | | | | | PDT | | + + + + + | Height | - | - | | + + + + + | Body Mass Index | 28.16 | 07/30/2016 1:51 PM | | | | | PDT | | + + + + + documented in this encounter Patient Instructions Patient Instructions Afshan Wright FNP - 02/19/2018 11:00 AM PDT Aprenda acerca de las inyecciones en alannah articulacin - [ Learning About Joint Injections ] Qu son las inyecciones en alannah articulacin? Las inyecciones en alannah articulacin son inyecciones que se leodan en alannah articulacin, gt en la rodilla o en el hombro. Se utilizan para administrar medicamentos, tales gt analgs icos (medicamentos para el dolor) y medicamentos esteroideos. Los esteroides se pueden inyectar directamente en alannah articulacin hinchada y adolorida pa ra reducir la inflamacin. Alannah inyeccin de esteroides a veces puede ayudar con el alivio del dolor a corto plazo cuando otros tratamientos no galloway funcionado. Si las inyecciones de e steroides ayudan, el dolor podra aliviarse marie semanas o meses. Label Rewinder se aplican las inyecciones en alannah articulacin? Christian, se limpiar la luis carlos sobre la articulacin. El mdico puede entonces utilizar un a aguja diminuta para adormecer la piel en la luis carlos en la que se va a aplicar la inyeccin e n la articulacin. Si se usa alannah aguja diminuta para entumecer la luis carlos, traore mdico usar otra aguja para inye ctar la medicacin. Traore mdico puede usar un analgsico, un esteroide o ambos. Puede senti r algo de presin o molestia. El procedimiento dura entre 10 y 30 minutos. Altagracia, por lo general, la inyeccin en s mis ma solo dura unos minutos. Traore mdico puede ponerle hielo en la luis carlos antes de que usted regrese a casa. Probablemente regrese a traore casa poco despus de la inyeccin. Qu puede esperar despus de alannah inyeccin en alannah articulacin? Es posible que sienta entumecimiento en la articulacin marie unas horas. Si la inyeccin incluy tanto un analgsico gt un esteroide, entonces es probable que el dolor desaparezca inmediatamente. Altagracia podra regresar despus de unas horas. [place] pued e suceder si el efecto del analgsico se agota y el esteroide todava no cruz empezado a act uar. Los esteroides no siempre funcionan. Altagracia cuando funcionan, el alivio del dolor puede d urar de varios membreno a algunos meses o ms tiempo. El mdico podra indicarle que se aplique hielo en la luis carlos. Tambin puede usar hielo si el dolor regresa. Colquese hielo o alannah compresa fra sobre la articulacin por un altagracia do de 10 a 20 minutos cada vez. Pngase un denise armendariz entre el hielo y la piel. Siga cuidadosamente las indicaciones de traore mdico. La atencin de seguimiento es alannah parte clave de traore tratamiento y seguridad. Asegrese de hacer y acudir a todas las citas, y llame a traore mdico si est teniendo problemas. Tambi n es alannah buena idea saber los resultados de xin exmenes y mantener alannah lista de los medica mentos que cruz. Dnde puede encontrar ms informacin en ingls? Para aprender ms sobre "Aprenda acerca de las inyecciones en alannah articulacin - [ Learni ng About Joint Injections ]", entre a traore cuenta de MyChart en [email or web address]. P uede ingresar N961 en la celda de bsqueda del "Health Library". No est registrado en MyChart? 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 Revisado: 2016 Versin del contenido: 03.12 [employer]. Las instrucciones de cuidado fueron adaptadas bajo l icencia por [facility] [place]. Si usted tiene preguntas sobre alannah afeccin mdica o sobre estas instrucciones, siempre pregunte a traore profesional de anil. [employer] , [employer] niega toda garanta o responsabilidad por traore uso de esta informacin. Tobillo: Ejercicios - [ Ankle: Exercises ] Instrucciones de cuidado Aqu se presentan algunos ejemplos de ejercicios para el tobillo. Empiece cada ejercicio l entamente. Reduzca la intensidad del ejercicio si empieza a tener dolor. Traore mdico o fisioterapeuta le dirn cundo puede comenzar con estos ejercicios y cules funcionarn mejor para usted. Label Rewinder hacer los ejercicios Ejercicio del "alfabeto" 1. Trace las letras del alfabeto con el dedo cheo del pie. [place] ayuda a base remover el tobillo e n todas las direcciones. Ejercicio de balanceo de rodilla de lado a lado 1. Sintese en alannah silla con el pie apoyado en el piso. 2. Mueva lentamente la rodilla de un lado a otro, manteniendo el pie apoyado firmemente con tra el piso. 3. Contine haciendo jovita ejercicio marie 2 o 3 minutos. Flexin con toalla 1. Estando sentado, coloque el pie sobre alannah toalla en el suelo y acerque la toalla hacia u sted con los dedos del pie. 2. Luego, usando tambin los dedos del pie, aleje la toalla de usted. 3. Bob jovita ejercicio ms difcil colocando un objeto pesado, gt alannah yvette de sopa, en el otro extremo de la toalla. Estiramiento con toalla 1. Sintese con las piernas extendidas y las rodillas rectas. 2. Coloque alannah toalla alrededor de traore pie niya por debajo de los dedos. 3. Sostenga cada extremo de la toalla con cada mano, con las raymond por encima de las rodill as. 4. Tire hacia atrs con la toalla para que el pie se estire hacia usted. 5. Mantenga la posicin por lo menos de 15 a 30 segundos. 6. Repita de 2 a 4 veces por sesin, hasta 5 sesiones al da. Ejercicio de eversin del tobillo 1. Comience por sentarse con el pie apoyado en el suelo y empujando hacia afuera contra un objeto fijo, gt la pared o un mueble pesado. Mantenga la posicin por alrededor de 6 segu ndos y luego reljese. Repita de 8 a 12 veces. 2. Despus de que se sienta cmodo con esto, pruebe a utilizar un tubo de goma enrollado alrededor de la parte externa de xin pies para tener ms resistencia. Empuje el pie hacia a fuera contra el tubo y luego cuente hasta 10 a medida que regresa el pie lentamente hacia el centro. Repita de 8 a 12 veces. Ejercicios isomtricos de oposicin 1. Estando sentado, ponga los pies juntos en el piso. 2. Presione el pie lesionado hacia adentro, contra el otro pie. Mantenga la posicin por a lrededor de 6 segundos y luego reljese. 3. Luego coloque el taln del otro pie en la parte superior del pie lesionado. Empuje haci a abajo con el taln que est arriba mientras trata de empujar hacia arriba con traore pie les ionado. Mantenga la posicin por alrededor de 6 segundos y luego reljese. Repita de 8 a 1 2 veces. La atencin de seguimiento es alannah parte clave de traore tratamiento y seguridad. Asegrese de hacer y acudir a todas las citas, y llame a traore mdico si est teniendo problemas. Tambi n es alannah buena idea saber los resultados de xin exmenes y mantener alannah lista de los medica mentos que cruz. Dnde puede encontrar ms informacin en ingls? Para aprender ms sobre "Tobillo: Ejercicios - [ Ankle: Exercises ]", entre a traore cuenta de MyChart en [email or web address]. Puede ingresar R730 en la celda de bsqueda del "[facility] Library". No est registrado en MyChart? 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 Revisado: 2016 Versin del contenido: 11.7 4699-3230 [employer]. Las instrucciones de cuidado fueron adaptadas bajo l icencia por [facility]. Si usted tiene preguntas sobre alannah afeccin mdica o sobre estas instrucciones, siempre pregunte a traore profesional de anil. [employer] niega toda garanta o responsabilidad por traore uso de esta informacin. documented in this encounter Progress Notes Lavern Pike MA - 02/19/2018 11:00 AM PDTThe patient was screened for the following cont raindications to influenza vaccine and responses were as follows: Prior history of a reaction to flu vaccine? No Febrile illness today? No Allergy to eggs, gelatin, or antibiotic? No Prior history of Guillain-Ashley syndrome? No Severe allergic reaction to anything requiring emergency care? No Pt tolerated injection. No questions or concerns. Afshan Florence FNP - 02/19/2018 11:00 AM PDT Progress Note Clinic: Rheumatology Reason for follow-up: Chief Complaint Patient presents with RA - Rheumatoid arthritis Medication management Follow-up visit Ms. Sandrita Queen was last November 21, 2017. 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 Doing well until just a few days ago then R ankle started hurting/ swelling. She had this ankle injected 3mo ago w/ good results. Otherwise she has been doing well. Denies issues w/ medication SE or access. No constitutional sx. Desires influenza vaccination today. EMS 30min. Exercise walking twice weekly. ROS: Please see scanned intake document. Detail reviewed face to face w/ patient. Relevant ROS detailed in HPI. Past Medical History: Past Medical History: Diagnosis Date 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 rheumatoid arthritis (HCC) Medications: Current Outpatient Prescriptions Medication Sig abatacept (ORENCIA) 125 mg/mL subcutaneous syringe Inject 125 mg under the skin (SUBC) every seven days. LABEL IN [place]. ergocalciferol (VITAMIN D2) 50,000 unit oral capsule Take 1 capsule by mouth every nelson n days. LABEL ONLY IN [place]. Indications: Vitamin D Deficiency (High Dose Therapy) folic acid 1 mg oral tablet Take 1 tablet by mouth once daily. MUST BE TAKEN WHEN USING METHOTREXATE (LABEL IN [place]). ibuprofen (ADVIL) 100 mg oral tablet Take 100 mg by mouth every six hours as needed. metFORMIN 500 mg oral tablet Take 1 tablet by mouth two times daily. omeprazole 20 mg oral capsule,delayed release(DR/EC) Take 1 capsule by mouth once daily . No current facility-administered medications for this visit. Allergies: Methotrexate Social History: Dominga reports that she has never smoked. She has never used smokeless tobac co. Family History: Family history includes Non-contributory in her brother, father, mother, an d sister. Physical Exam: BP 108/72 | Pulse 88 | Wt 69.9 kg (154 lb) | LMP 01/26/2018 | BMI 28.16 kg/(m^2) Pain Score : 7 Rapid 3 MHAQ: 2.0 (02/19/18 1100) PAIN LEVEL: 6 (02/19/181099) GLOBAL ASSESSMENT: 6 (02/19/181099) RAPID 3: 4.67 (02/19/181099) Gen: Well nourished, well developed, in NAD HEENT: unremarkable Ext: No clubbing, cyanosis, or edema M/S: MEMBRENO 28; +right ankle TTP; b/l wrists fixed deformity limiting flex/ext/ ab/ad Skin: moderate varicosities left LE Neuro: normal Labs: Lab Results Component Value Date WBC 6.38 11/21/2017 RBC 4.23 11/21/2017 HCT 37.7 11/21/2017 HB 12.8 11/21/2017 MCV 89.1 11/21/2017 MCHC 34.0 11/21/2017 PLT 215 11/21/2017 NEUTROPERC 49.3 (L) 11/21/2017 LYMPHPERC 39.7 11/21/2017 MONOPERC 7.7 11/21/2017 EOSPERC 2.5 11/21/2017 BASOPERC 0.5 11/21/2017 NEUTROPHILCO 3.15 11/21/2017 GLU 106 (H) 11/21/2017 BUN 8 11/21/2017 CR 0.60 11/21/2017 TP 8.4 (H) 11/21/2017 ALB 3.8 11/21/2017 CA 8.9 11/21/2017 TBILI 0.4 11/21/2017 AP 121 (H) 11/21/2017 AST 23 11/21/2017 NA 142 11/21/2017 K 3.8 11/21/2017 CL 107 11/21/2017 BICARB 30 11/21/2017 ALT 39 11/21/2017 Lab Results Component Value Date ESR 20 11/21/2017 ESR 29 08/15/2017 ESR 22 01/31/2017 Lab Results Component Value Date [id number] 30.9 11/21/2017 Impression: This is a 37 y.o. female here for follow up of double seropositive erosive RA. Background information of RA: First symptoms started: 10mo before dx Date of diagnosis: 2006 ACPA: +186 RF: +52 DMARDs: Methotrexate (LFT elevation); HCQ, SSZ and lefunomide failure Biologic: Abatacept; adalimumab (failure after efficacy for 6yrs) X-ray: Bilateral hands and feet 11/2015 ([facility]) Erosion: +feet; +wrists Functional Assessment: [facility] FLOWSHEET 11/21/2017 11/21/2017 02/19/2018 02/19/2018 RAPID 3 6.23 4.67 Total Tender Joints 8 6 Total Swollen Joints 2 6 ESR 20 20 Global Health Value 5 6 DAS28 Score 4.1 4.2 Disease Activity Level Moderate Moderate Plan: 1. Verbal informed consent obtained. PARQ. The right ankle was prepped in a sterile fashi on and injected w/ 20mg methylprednisolone and 1.25cc lidocaine 1%. The injection was ana ated w/o incident. Post care instructions provided. She understands to contact me should a ny concerns arise. 2. Continue abatacept 125mg sq every 7d. If flare again, consider infliximab? 3. Labs today: CBC, CMP, ESR and vitamin D 25-OH. 4. Influenza vaccination administered. 5. Clinical reeval 3mo. Sooner if needed. [facility] [address] [place] [address] Mailcode: Op09 [facility], [facility] [phone] Display Progress Note in [place]leant[place]: NoElectronically signed by SUAD Nunn at 12:33 PM PDTdocumented in this encounter Plan of Treatment Not on filedocumented as of this encounter Procedures + +--------+ + + + | Procedure Name | Priori | Date/Time | Associated Diagnosis | Comments | | | ty | | | | + +--------+ + + + | UT INTERMEDIATE | Routin | 02/19/2018 | 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 | | | JOINT OR BURSA | e | 11:16 AM | rheumatoid arthritis | | | ASPIRATION AND/OR | | PDT | ([facility]) Acute right | | | INJ W/O US GUIDE | | | ankle pain | | + +--------+ + + + documented in this encounter Results VITAMIN D, 25-HYDROXY, SERUM (02/19/2018 12:26 PM PDT) + + + + + + | Component | Value | Ref Range | Performed | Pathologist | | | | | At | Signature | + + + + + + | VITAMIN D | 14.8 (L) | 30 - 80 ng/mL | [facility] | | | 25 HYDROXY | | | LABORATORY | | | | | | SERVICES, | | | | | | CORE | | + + + + + + + + | Specimen | + + | Blood - Blood | | (substance) | + + + + + | Narrative | Performed At | + + + | Reference Interval: 0-18years: Deficiency: <20 ng/mL | [facility] | | Optimum level: >or=20 ng/mL | LABORATORY | | >18years: Deficiency: <20 | SERVICES, CORE | | ng/mL Insufficiency: 20-29 ng/mL | | | Optimum Level: 30-80 ng/mL High: | | | 81-150 ng/ml Toxic: >150 ng/mL | | + + + + + + + + | Performing | Address | City/State/Zipcode | Phone Number | | Organization | | | | + + + + + | [facility] | [address] | [place] [address] | | | SERVICES, CORE | [address] | | | + + + + + COMPLETE METABOLIC SET (NA,K,CL,CO2,BUN,CREAT,GLUC,CA,AST,ALT,BILI TOTAL,ALK PHOS,ALB,PROT TOTAL) (02/19/2018 12:26 PM PDT) + + + + + + | Component | Value | Ref Range | Performed | Pathologist | | | | | At | Signature | + + + + + + | GLUCOSE, | 133 (H) | 70 - 99 mg/dL | [facility] | | | PLASMA | | | LABORATORY | | | (LAB) | | | SERVICES, | | | | | | CORE | | + + + + + + | BUN, PLASMA | 9 | 6 - 20 mg/dL | [facility] | | | (LAB) | | | LABORATORY | | | | | | SERVICES, | | | | | | CORE | | + + + + + + | CREATININE | 0.47 (L) | 0.60 - 1.10 | [facility] | | | PLASMA | | mg/dL | LABORATORY | | | (LAB) | | | SERVICES, | | | | | | CORE | | + + + + + + | EGFR | >60 | >60 mL/min | [facility] | | | - | | | LABORATORY | | | [facility] | | | SERVICES, | | | | | | CORE | | + + + + + + | EGFR NON | >60 | >60 mL/min | [facility] | | | -GUERO | | | LABORATORY | | | RICAN | | | SERVICES, | | | | | | CORE | | + + + + + + | SODIUM, | 138 | 136 - 145 | [facility] | | | PLASMA | | mmol/L | LABORATORY | | | (LAB) | | | SERVICES, | | | | | | CORE | | + + + + + + | POTASSIUM, | 3.6 | 3.4 - 5.0 | [facility] | | | PLASMA | | mmol/L | LABORATORY | | | (LAB) | | | SERVICES, | | | | | | CORE | | + + + + + + | CHLORIDE, | 105 | 97 - 108 mmol/L | [facility] | | | PLASMA | | | LABORATORY | | | (LAB) | | | SERVICES, | | | | | | CORE | | + + + + + + | TOTAL CO2, | 25 | 21 - 32 mmol/L | [facility] | | | PLASMA | | | LABORATORY | | | (LAB) | | | SERVICES, | | | | | | CORE | | + + + + + + | CALCIUM, | 8.7 | 8.6 - 10.2 | [facility] | | | PLASMA | | mg/dL | LABORATORY | | | (LAB) | | | SERVICES, | | | | | | CORE | | + + + + + + | CALCIUM(ALB | 8.9 | 8.6 - 10.2 | [facility] | | | CORRECTED) | | mg/dL | LABORATORY | | | | | | SERVICES, | | | | | | CORE | | + + + + + + | BILIRUBIN | 0.5 | 0.3 - 1.2 mg/dL | [facility] | | | TOTAL | | | LABORATORY | | | | | | SERVICES, | | | | | | CORE | | + + + + + + | TOTAL | 8.0 | 6.4 - 8.2 g/dL | [facility] | | | PROTEIN, | | | LABORATORY | | | PLASMA | | | SERVICES, | | | (LAB) | | | CORE | | + + + + + + | ALBUMIN, | 3.8 | 3.5 - 4.7 g/dL | [facility] | | | PLASMA | | | LABORATORY | | | (LAB) | | | SERVICES, | | | | | | CORE | | + + + + + + | ALK PHOS | 111 (H) | 42 - 98 U/L | [facility] | | | | | | LABORATORY | | | | | | SERVICES, | | | | | | CORE | | + + + + + + | AST(SGOT) | 10 | <=41 U/L | [facility] | | | | | | LABORATORY | | | | | | SERVICES, | | | | | | CORE | | + + + + + + | ALT (SGPT) | 23 | <=60 U/L | [facility] | | | | | | LABORATORY | | | | | | SERVICES, | | | | | | CORE | | + + + + + + | ANION GAP | 8 | 4 - 11 mmol/L | [facility] | | | | | | LABORATORY | | | | | | SERVICES, | | | | | | CORE | | + + + + + + | ANION | 8 | 4 - 11 mmol/L | [facility] | | | GAP(ALB | | | LABORATORY | | | CORRECTED) | | | SERVICES, | | | | | | CORE | | + + + + + + | POTASSIUM | No Hemo | | [facility] | | | CMNT | | | LABORATORY | | | | | | SERVICES, | | | | | | CORE | | + + + + + + | BILI T CMNT | No Hemo | | [facility] | | | | | | LABORATORY | | | | | | SERVICES, | | | | | | CORE | | + + + + + + | AST CMNT | No Hemo | | [facility] | | | | | | LABORATORY | | | | | | SERVICES, | | | | | | CORE | | + + + + + + + + | Specimen | + + | Blood - Blood | | (substance) | + + + + + | Narrative | Performed At | + + + | GFR is estimated using the MDRD equation recommended by the | [facility] | | National Kidney Disease Education Program. Estimated GFR | LABORATORY | | Interpretive Information: <60 mL/min/1.73 sq m | SERVICES, CORE | | Chronic Kidney Disease <15 mL/min/1.73 sq m | | | Kidney Failure Estimated GFR greater that 60 mL/min/1.73 sq m is of | | | limited clinical value. The MDRD equation is not valid in the | | | following situations: - Patients under 18 years of age - Severe | | | malnutrition or obesity - Vegetarian diet - Rapidly changing kidney | | | function - Amputees, paraplegics, or other muscle-wasting diseses | | + + + + + + + + | Performing | Address | City/State/Zipcode | Phone Number | | Organization | | | | + + + + + | [facility] | [address] | [place] [address] | | | SERVICES, CORE | [address] | | | + + + + + SEDIMENTATION RATE (02/19/2018 12:26 PM PDT) + +-------+ + + + | Component | Value | Ref Range | Performed | Pathologist | | | | | At | Signature | + +-------+ + + + | SEDIMENTATI | 17 | 0 - 20 mm/hr | [facility] | | | ON RATE | | | LABORATORY | | | | | | SERVICES, | | | | | | CORE | | + +-------+ + + + + + | Specimen | + + | Blood - Blood | | (substance) | + + + + + | Narrative | Performed At | + + + | Conditions such as cold agglutinins, anemia, hemolysis, icterus or | [facility] | | lipemia may affect sedimentation rate. | LABORATORY | | | SERVICES, CORE | + + + + + + + + | Performing | Address | City/State/Zipcode | Phone Number | | Organization | | | | + + + + + | [facility] | [address] | [place] [address] | | | [address] | [address] | | | + + + + + documented in this encounter Visit Diagnoses + + | Diagnosis | + + | 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 rheumatoid arthritis (HCC) - Primary Rheumatoid arthritis | + + | Long-term use of high-risk medication | + + | Need for influenza vaccination Need for prophylactic vaccination and inoculation | | against influenza | + + | Acute right ankle pain | + + | Vitamin D deficiency | + + documented in this encounter Administered Medications + +--------+ +-------+------+--------+ | Medication Order | MAR | Action | Dose | Rate | Site | | | Action | Date | | | | + +--------+ +-------+------+--------+ | methylPREDNISolone acetate | Given | 02/20/20 | 20 mg | | Right | | (DEPO-MEDROL) injection 20 mg 20 | | 18 11:55 | | | Ankle | | mg, intra-articular, ONCE, 1 | | AM PDT | | | | | dose, 02/19/18 at 1130 | | | | | | + +--------+ +-------+------+--------+ +---+---+ | | | +---+---+ documented in this encounter
--- OUTSIDE RECORDS SUMMARY | ~2020-01-05 | XMS | Encounter Summary ---
Demographics + + + | Address | [address] | | | [place] [address] | + + + | Home Phone | | + + + | Preferred Language | Unknown | + + + | Marital Status | | + + + | Voodoo Affiliation | Unknown | + + + | Race | White | + + + | Ethnic Group | or | + + + Author + + + | Author | [facility] | + + + | Organization | [facility] | + + + | Address | Unknown | + + + | Phone | Unavailable | + + + Support + + +---------+ + | Name | Relationship | Address | Phone | + + +---------+ + | Brittanie Remy | ECON | Unknown | | + + +---------+ + Care Team Providers + +------+ + | Care Industrial Renderer Name | Role | Phone | + +------+ + | Isacc Chi | PCP | | + +------+ + Encounter Details +--------+ + + + + | Date | Type | Department | Care Team | Description | +--------+ + + + + | 11/28/ | Hospital | Diagnostic | | | | 2015 | Encounter | Radiology at [facility] | | | | | | [address] | | | | | | Loop Physician's | | | | | | [place], [facility] | | | | | | [place], [place] | | | | | | [address] | | | | | | [phone] | | | +--------+ + + + [...] + + documented as of this encounter Medications at Time of Discharge + + + +---------+--------+ + | Medication | Sig | Dispensed | Refills | Start | End Date | | | | | | Date | | + + + +---------+--------+ + | ibuprofen (ADVIL) | Take 100 mg by mouth | | 0 | | | | 100 mg oral tablet | every six hours as | | | | | | | needed. | | | | | + + + +---------+--------+ + documented as of this encounter Plan of Treatment Not on filedocumented as of this encounter Procedures + +--------+ + + + | Procedure Name | Priori | Date/Time | Associated Diagnosis | Comments | | | ty | | | | + +--------+ + + + | X-RAY HAND 1 VIEWS | Routin | 11/29/2015 | Long-term use of | Results for this | | BILATERAL | e | 12:32 PM | high-risk medication | procedure are in the | | | | PDT | | results section. | + +--------+ + + + documented in this encounter Results X-RAY HAND 1 VIEWS BILATERAL (11/29/2015 12:32 PM PDT) + + + + + + | Component | Value | Ref Range | Performed | Pathologist | | | | | At | Signature | + + + + + + | HAND 1 | STUDY: HAND 1 VIEW | | | | | VIEWS | BILATERAL 11/29/15 | | | | | BILATERAL | 12:11:00 HISTORY: | | | | | | Rheumatoid arthritis. | | | | | | COMPARISON: None. | | | | | | FINDINGS:Right hand: | | | | | | Severe radiocarpal and | | | | | | ulnocarpal joint space | | | | | | narrowing is | | | | | | present,with small | | | | | | subchondral lucencies in | | | | | | the distal radius and | | | | | | proximal lunate | | | | | | andtriquetrum. No | | | | | | erosion is otherwise | | | | | | observed. DRUJ | | | | | | degenerative spurring | | | | | | ispresent. The other | | | | | | joint spaces are | | | | | | maintained. Left hand: | | | | | | There is severe | | | | | | radiocarpal and moderate | | | | | | ulnocarpal joint | | | | | | spacenarrowing, with | | | | | | subchondral lucencies. | | | | | | No convincing erosion | | | | | | is observed.DRUJ | | | | | | degenerative spurring is | | | | | | present. The joints | | | | | | are otherwise | | | | | | maintained. There is no | | | | | | fracture, malalignment, | | | | | | or soft tissue | | | | | | abnormality in either | | | | | | hand. IMPRESSION: | | | | | | Bilateral radiocarpal | | | | | | and ulnocarpal joint | | | | | | space narrowing. | | | | | | Underlyinglucencies | | | | | | likely represent cysts, | | | | | | less likely erosions. | | | | | | Mild bilateral DRUJ | | | | | | degenerative change. | | | | | | Attending Radiologists: | | | | | | EDIN DIEGO MDAuthor: | | | | | | EDIN DIEGO MD I | | | | | | personally reviewed the | | | | | | images and, if | | | | | | necessary, edited the | | | | | | report. I agreewith the | | | | | | report as now presented. | | | | | | | | | | | | Final/Electronically | | | | | | signed / EDIN DIEGO | | | | | | 11/29/2015 12:42 PM | | | | + + + + + + + + | Specimen | + + | | + + + +---------+ + + | Performing | Address | City/State/Zipcode | Phone Number | | Organization | | | | + +---------+ + + | [facility] | | | | | RADIOLOGY | | | | + +---------+ + + documented in this encounter Visit Diagnoses + + | Diagnosis | + + | Long-term use of high-risk medication | + + documented in this encounter"
--- OUTSIDE RECORDS SUMMARY | ~2020-01-05 | XMS | Encounter Summary ---
Demographics + + + | Address | [address] | | | [place] [address] | + + + | Home Phone | | + + + | Preferred Language | Unknown | + + + | Marital Status | | + + + | Restorationism Affiliation | Unknown | + + + | Race | White | + + + | Ethnic Group | or | + + + Author + + + | Author | [facility] | + + + | Organization | [facility] | + + + | Address | Unknown | + + + | Phone | Unavailable | + + + Support + + +---------+ + | Name | Relationship | Address | Phone | + + +---------+ + | Brittanie Remy | ECON | Unknown | | + + +---------+ + Care Team Providers + +------+ + | Care Hearing Officer Name | Role | Phone | + +------+ + | Stephanie Miller MD | PCP | | + +------+ + Encounter Details +--------+ + + + + | Date | Type | Department | Care Team | Description | +--------+ + + + + | 05/05/ | Documentati | Rheumatology at | [facility] | | | 2018 | on | Physicians [place], [address] | | | | | [address] | [facility] | | | | | Loop Physician's | [place], [place] | | | | | [place], [address] [place] [address] | [address] | | | | | [place], [place] | [phone] | | | | | [address] | | | | | | [phone] | | | +--------+ + + + [...]
--- OUTSIDE RECORDS SUMMARY | ~2020-01-05 | XMS | Encounter Summary ---
Demographics + + + | Address | [address] | | | [place] [address] | + + + | Home Phone | | + + + | Preferred Language | Unknown | + + + | Marital Status | | + + + | Hinduism Affiliation | Unknown | + + + | Race | White | + + + | Ethnic Group | or | + + + Author + + + | Author | [facility] | + + + | Organization | [facility] | + + + | Address | Unknown | + + + | Phone | Unavailable | + + + Support + + +---------+ + | Name | Relationship | Address | Phone | + + +---------+ + | Brittanie Remy | ECON | Unknown | | + + +---------+ + Care Team Providers + +------+ + | Care Cartridge Assembler Name | Role | Phone | + +------+ + | Stephanie Miller MD | PCP | | + +------+ + Reason for Visit + +--------+ + | Reason | Onset | Comments | | | Date | | + +--------+ + | Evaluation of test | 02/19/ | | | results | 2018 | | + +--------+ + Encounter Details +--------+ + + + + | Date | Type | Department | Care Team | Description | +--------+ + + + + | 02/19/ | Telephone | Rheumatology at | [facility] | Evaluation of test | | 2018 | | Physicians [place] [facility] [address] | results | | | | [address] | [facility] | | | | | Loop Physician's | [facility], [place] | | | | | [place], [address] Floor | [address] | | | | | [place], [place] | [phone] | | | | | [address] | | | | | | [phone] | | | +--------+ + + + [...] this encounter Miscellaneous Notes Telephone Encounter - Lavern Pike MA - 02/20/2018 10:02 AM PDTShe missed two doses, but started taking it again on Saturday. I instructed her to keep taking it weekly, and if it sheila ps dropping, we may have to increase it to twice per week. elephone Encounter - Deedee Lynne MA - 02/19/2018 2:11 PM PDT [facility], [address] meg Parekh Please call patient. Blood count and liver are good. Her vitamin D is going low again. Is she still taking it weekly? If so, then we will need to do it twice a week. If not, we will have to reorder it. CS documented in this e ncounter Plan of Treatment Not on filedocumented as of this encounter Visit Diagnoses Not on filedocumented in this encounter"
--- OUTSIDE RECORDS SUMMARY | ~2020-01-05 | XMS | Encounter Summary ---
Demographics + + + | Address | [address] | | | [place] [address] | + + + | Home Phone | | + + + | Preferred Language | Unknown | + + + | Marital Status | | + + + | Adventist Affiliation | Unknown | + + + | Race | White | + + + | Ethnic Group | or | + + + Author + + + | Author | [facility] | + + + | Organization | [facility] | + + + | Address | Unknown | + + + | Phone | Unavailable | + + + Support + + +---------+ + | Name | Relationship | Address | Phone | + + +---------+ + | Brittanie Remy | ECON | Unknown | | + + +---------+ + Care Team Providers + +------+ + | Care Cookie Padder Name | Role | Phone | + +------+ + | Isacc Chi | PCP | | + +------+ + Encounter Details +--------+------+ + + + | Date | Type | Department | Care Team | Description | +--------+------+ + + + | 07/30/ | Lab | Laboratory at [facility] | | Long-term use of | | 2016 | | [address] | | high-risk | | | | Loop Physician's | | medication; | | | | [address] floor | | 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 | | | | [place], [place] | | rheumatoid arthritis | | | | [address] | | ([facility]); Vitamin D | | | | [phone] | | deficiency | +--------+------+ + + + Social History + +-------+ [...] | + +--------+ + + + | CBC AND AUTO DIFF | Routin | 07/30/2016 | Long-term use of | Results for this | | | e | 2:58 PM | high-risk medication | procedure are in the | | | | PDT | | results section. | + +--------+ + + + | CBC, WITH | Routin | 07/30/2016 | Long-term use of | Results for this | | DIFFERENTIAL | e | 2:58 PM | high-risk medication | procedure are in the | | | | PDT | | results section. | + +--------+ + + + | VITAMIN D, | Routin | 07/30/2016 | Vitamin D | Results for this | | 25-HYDROXY, SERUM | e | 2:58 PM | deficiency | procedure are in the | | | | PDT | | results section. | + +--------+ + + + | COMPLETE METABOLIC | Routin | 07/30/2016 | Long-term use of | Results for this | | SET | e | 2:58 PM | high-risk medication | procedure are in the | | (NA,K,CL,CO2,BUN,CRE | | PDT | | results section. | | AT,GLUC,CA,AST,ALT,B | | | | | | ALEN TOTAL,ALK | | | | | | PHOS,ALB,PROT TOTAL) | | | | | + +--------+ + + + | C-REACTIVE PROTEIN | Routin | 07/30/2016 | 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 | Results for this | | | e | 2:58 PM | rheumatoid arthritis | procedure are in the | | | | PDT | (HCC) | results section. | + +--------+ + + + | SEDIMENTATION RATE | Routin | 07/30/2016 | 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 | Results for this | | | e | 2:58 PM | rheumatoid arthritis | procedure are in the | | | | PDT | (HCC) | results section. | + +--------+ + + + documented in this encounter Results CBC AND AUTO DIFF (07/30/2016 2:58 PM PDT) + + + + + + | Component | Value | Ref Range | Performed | Pathologist | | | | | At | Signature | + + + + + + | WHITE CELL | 5.79 | 3.50 - 10.80 | [facility] | | | COUNT | | K/cu mm | LABORATORY | | | | | | SERVICES, | | | | | | CORE | | + + + + + + | RED CELL | 4.32 | 4.00 - 5.20 | [facility] | | | COUNT | | M/cu mm | LABORATORY | | | | | | SERVICES, | | | | | | CORE | | + + + + + + | HEMOGLOBIN | 12.7 | 12.0 - 16.0 | [facility] | | | | | g/dL | LABORATORY | | | | | | SERVICES, | | | | | | CORE | | + + + + + + | HEMATOCRIT | 38.0 | 36.0 - 46.0 % | [facility] | | | | | | LABORATORY | | | | | | SERVICES, | | | | | | CORE | | + + + + + + | MCV | 88.0 | 80.0 - 96.0 fL | [facility] | | | | | | LABORATORY | | | | | | SERVICES, | | | | | | CORE | | + + + + + + | MCHC | 33.4 | 33.0 - 35.5 | [facility] | | | | | g/dL | LABORATORY | | | | | | SERVICES, | | | | | | CORE | | + + + + + + | RDW SD | 40.4 | 35.1 - 46.3 fL | [facility] | | | | | | LABORATORY | | | | | | SERVICES, | | | | | | CORE | | + + + + + + | PLATELET | 231 | 150 - 400 K/cu | [facility] | | | COUNT | | mm | LABORATORY | | | | | | SERVICES, | | | | | | CORE | | + + + + + + | MPV | 12.3 | 9.7 - 12.3 fL | [facility] | | | | | | LABORATORY | | | | | | SERVICES, | | | | | | CORE | | + + + + + + | NRBC% | 0.0 | 0.0 - 0.3 % | [facility] | | | | | | LABORATORY | | | | | | SERVICES, | | | | | | CORE | | + + + + + + | NRBC# | 0.00 | 0.00 - 0.02 | [facility] | | | | | K/cu mm | LABORATORY | | | | | | SERVICES, | | | | | | CORE | | + + + + + + | NEUTROPHIL | 56.6 | 50.0 - 70.0 % | [facility] | | | % | | | LABORATORY | | | | | | SERVICES, | | | | | | CORE | | + + + + + + | LYMPHOCYTE | 32.1 | 18.0 - 42.0 % | [facility] | | | % | | | LABORATORY | | | | | | SERVICES, | | | | | | CORE | | + + + + + + | MONOCYTE % | 8.3 | 3.5 - 9.0 % | [facility] | | | | | | LABORATORY | | | | | | SERVICES, | | | | | | CORE | | + + + + + + | EOS % | 2.1 | 1.0 - 3.0 % | [facility] | | | | | | LABORATORY | | | | | | SERVICES, | | | | | | CORE | | + + + + + + | BASO % | 0.7 | 0.0 - 2.0 % | [facility] | | | | | | LABORATORY | | | | | | SERVICES, | | | | | | CORE | | + + + + + + | IG% | 0.2Comment: Immature | 0.0 - 0.6 % | [facility] | | | | Granulocytes (IG) | | LABORATORY | | | | include metamyelocytes, | | SERVICES, | | | | myelocytes and | | CORE | | | | promyelocytes. Bands | | | | | | are not included in the | | | | | | IG count. Bands are | | | | | | included in the | | | | | | neutrophil count. | | | | + + + + + + | NEUTROPHIL | 3.28 | 1.80 - 7.70 | [facility] | | | # | | K/cu mm | LABORATORY | | | | | | SERVICES, | | | | | | CORE | | + + + + + + | LYMPHOCYTE | 1.86 | 1.00 - 4.80 | [facility] | | | # | | K/cu mm | LABORATORY | | | | | | SERVICES, | | | | | | CORE | | + + + + + + | MONOCYTE # | 0.48 | 0.10 - 0.90 | [facility] | | | | | K/cu mm | LABORATORY | | | | | | SERVICES, | | | | | | CORE | | + + + + + + | EOS # | 0.12 | 0.00 - 0.50 | [facility] | | | | | K/cu mm | LABORATORY | | | | | | SERVICES, | | | | | | CORE | | + + + + + + | BASO # | 0.04 | 0.00 - 0.10 | [facility] | | | | | K/cu mm | LABORATORY | | | | | | SERVICES, | | | | | | CORE | | + + + + + + | IG# | 0.01 | 0.00 - 0.03 | [facility] | | | | | K/cu mm | LABORATORY | | | | | | SERVICES, | | | | | | CORE | | + + + + + + + + | Specimen | + + | Blood - Blood | | (substance) | + + + + + | Narrative | Performed At | + + + | New adult WBC reference ranges effective March 21, 2016. | [facility] | | Immature Granulocytes (IG) include metamyelocytes, myelocytes and | LABORATORY | | promyelocytes. Bands are not included in the IG count. Bands are | SERVICES, CORE | | included in the neutrophil count. | | + + + + + + + + | Performing | Address | City/State/Zipcode | Phone Number | | Organization | | | | + + + + + | [facility] | [address] | [place] [address] | | | SERVICES, CORE | [address] | | | + + + + + VITAMIN D, 25-HYDROXY, SERUM (07/30/2016 2:58 PM PDT) + +---------+ + + + | Component | Value | Ref Range | Performed | Pathologist | | | | | At | Signature | + +---------+ + + + | VITAMIN D | 4.7 (L) | 30 - 80 ng/mL | [facility] | | | 25 HYDROXY | | | LABORATORY | | | | | | SERVICES, | | | | | | CORE | | + +---------+ + + + + + | Specimen [...] + | [facility] | [address] | [place] [address] | | | SERVICES, CORE | [address] | | | + + + + + C-REACTIVE PROTEIN (07/30/2016 2:58 PM PDT) + +-------+ + + + | Component | Value | Ref Range | Performed | Pathologist | | | | | At | Signature | + +-------+ + + + | C-REACTIVE | 6.8 | <10.0 mg/L | [facility] | | | PROTEIN | | | LABORATORY | | | | | | SERVICES, | | | | | | CORE | | + +-------+ + + + + + | Specimen | + + | Blood - Blood | | (substance) | + + + + + | Narrative | Performed At | + + + | New method, new reference range and new reporting units as of | [facility] | | 10/07/2013. | LABORATORY | | | SERVICES, CORE | + + + + + + + + | Performing | Address | City/State/Zipcode | Phone Number | | Organization | | | | + + + + + | [facility] | [address] | [place] [address] | | | SERVICES, CORE | [address] | | | + + + + + COMPLETE METABOLIC SET (NA,K,CL,CO2,BUN,CREAT,GLUC,CA,AST,ALT,BILI TOTAL,ALK PHOS,ALB,PROT TOTAL) (07/30/2016 2:58 PM PDT) + + + + + + | Component | Value | Ref Range | Performed | Pathologist | | | | | At | Signature | + + + + + + | GLUCOSE, | 236 (H) | 60 - 99 mg/dL | [facility] | | | PLASMA | | | LABORATORY | | | (LAB) | | | SERVICES, | | | | | | CORE | | + + + + + + | BUN, PLASMA | 12 | 6 - 20 mg/dL | [facility] | | | (LAB) | | | LABORATORY | | | | | | SERVICES, | | | | | | CORE | | + + + + + + | CREATININE | 0.53 (L) | 0.60 - 1.10 | [facility] | | | PLASMA | | mg/dL | LABORATORY | | | (LAB) | | | SERVICES, | | | | | | CORE | | + + + + + + | EGFR | >60 | >60 mL/min | [facility] | | | - | | | LABORATORY | | | TAJIK | | | SERVICES, | | | | | | CORE | | + + + + + + | EGFR NON | >60 | >60 mL/min | [facility] | | | -GUERO | | | LABORATORY | | | RICAN | | | SERVICES, | | | | | | CORE | | + + + + + + | SODIUM, | 140 | 136 - 145 | [facility] | [...] + + + + | CHLORIDE, | 104 | 97 - 108 mmol/L | [facility] | | | PLASMA | | | LABORATORY | | | (LAB) | | | SERVICES, | | | | | | CORE | | + + + + + + | TOTAL CO2, | 29 | 21 - 32 mmol/L | [facility] | | | PLASMA | | | LABORATORY | | | (LAB) | | | SERVICES, | | | | | | CORE | | + + + + + + | CALCIUM, | 8.9 | 8.6 - 10.2 | [facility] | | | PLASMA | | mg/dL | LABORATORY | | | (LAB) | | | SERVICES, | | | | | | CORE | | + + + + + + | CALCIUM(ALB | 9.0 | 8.6 - 10.2 | [facility] | | | CORRECTED) | | mg/dL | LABORATORY | | | | | | SERVICES, | | | | | | CORE | | + + + + + + | BILIRUBIN | 0.3 | 0.3 - 1.2 mg/dL | [facility] | | | TOTAL | | | LABORATORY | | | | | | SERVICES, | | | | | | CORE | | + + + + + + | TOTAL | 7.9 | 6.4 - 8.2 g/dL | [facility] | | | PROTEIN, | | | LABORATORY | | | PLASMA | | | SERVICES, | | | (LAB) | | | CORE | | + + + + + + | ALBUMIN, | 3.9 | 3.5 - 4.7 g/dL | [facility] | | | PLASMA | | | LABORATORY | | | (LAB) | | | SERVICES, | | | | | | CORE | | + + + + + + | ALK PHOS | 150 (H) | 42 - 98 U/L | [facility] | | | | | | LABORATORY | | | | | | SERVICES, | | | | | | CORE | | + + + + + + | AST(SGOT) | 48 (H) | <=41 U/L | [facility] | | | | | | LABORATORY | | | | | | SERVICES, | | | | | | CORE | | + + + + + + | ALT (SGPT) | 78 (H) | <=60 U/L | [facility] | | | | | | LABORATORY | | | | | | SERVICES, | | | | | | CORE | | + + + + + + | ANION GAP | 7 | mmol/L | [facility] | | | | | | LABORATORY | | | | | | SERVICES, | | | | | | CORE | | + + + + + + | ANION | 7 | 4 - 11 mmol/L | [facility] [...] the MDRD equation recommended by the | [facility] | | National Kidney Disease Education Program. [...] Rapidly changing kidney | | | function | | + + + + + + + + | Performing | Address | City/State/Zipcode | Phone Number | | Organization | | | | + + + + + | [facility] | [address] | [place] [address] | | | SERVICES, CORE | [address] | | | + + + + + SEDIMENTATION RATE (07/30/2016 2:58 PM PDT) + +--------+ + + + | Component | Value | Ref Range | Performed | Pathologist | | | | | At | Signature | + +--------+ + + + | SEDIMENTATI | 31 (H) | 0 - 20 mm/hr | [facility] | | | ON RATE | | | LABORATORY | | | | | | SERVICES, | | | | | | CORE | | + +--------+ + + + + + | Specimen [...] + + + + + | [facility] | [address] | [place] [address] | | | SERVICES, CORE | [address] | | | + + + + + documented in this encounter Visit Diagnoses + + | Diagnosis | + + | Long-term use of high-risk medication | + + | 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 rheumatoid arthritis (HCC) Rheumatoid arthritis | + + | Vitamin D deficiency | + + documented in this encounter"
--- OUTSIDE RECORDS SUMMARY | ~2020-01-05 | XMS | Encounter Summary ---
Demographics + + + | Address | [address] | | | [place] [address] | + + + | Home Phone | | + + + | Preferred Language | Unknown | + + + | Marital Status | | + + + | Church Affiliation | Unknown | + + + | Race | White | + + + | Ethnic Group | or | + + + Author + + + | Author | [facility] | + + + | Organization | [facility] | + + + | Address | Unknown | + + + | Phone | Unavailable | + + + Support + + +---------+ + | Name | Relationship | Address | Phone | + + +---------+ + | Brittanie Remy | ECON | Unknown | | + + +---------+ + Care Team Providers + +------+ + | Care Director Employment Name | Role | Phone | + +------+ + | Stephanie Miller MD | PCP | | + +------+ + Encounter Details +--------+ + + + + | Date | Type | Department | Care Team | Description | +--------+ + + + + | 11/21/ | Hospital | Diagnostic | [facility] | | | 2018 | Encounter | [facility] | [facility] [address] | | | | | [address] | [address] | | | | | [address] | [place], [place] | | | | | [place], [address] | [address] | | | | | [place], [place] | [phone] | | | | | [address] | | | | | | [phone] | | | +--------+ + + + [...] at Time of Discharge + + + +---------+ + + | Medication | Sig | Dispensed | Refills | Start | End Date | | | | | | Date | | + + + +---------+ + + | folic acid 1 mg | Take 1 tablet by | 30 | 11 | 03/27/20 | | | oral tablet | mouth once daily. | tablet | | 16 | | | | MUST BE TAKEN WHEN | | | | | | | USING METHOTREXATE | | | | | | | (LABEL IN MALTESE). | | | | | + + + +---------+ + + | ibuprofen (ADVIL) | Take 100 mg by mouth | | 0 | | | | 100 mg oral tablet | every six hours as | | | | | | | needed. | | | | | + + + +---------+ + + | metFORMIN 500 mg | Take 1 tablet by | | 0 | 05/25/20 | | | oral tablet | mouth two times | | | 18 | | | | daily. | | | | | + + + +---------+ + + | omeprazole 20 mg | Take 1 capsule by | | 0 | 05/25/20 | | | oral capsule,delayed | mouth once daily. | | | 18 | | | release(/YELENA) | | | | | | + + + +---------+ + + documented as of this encounter Plan of Treatment Not on filedocumented as of this encounter Procedures + +--------+ + + + | Procedure Name | Priori | Date/Time | Associated Diagnosis | Comments | | | ty | | | | + +--------+ + + + | X-RAY HAND 1 VIEWS | Routin | 11/21/2017 | 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 | Results for this | | BILATERAL | e | 1:54 PM | rheumatoid arthritis | procedure are in the | | | | PDT | (HCC) | results section. | + +--------+ + + + documented in this encounter Results X-RAY HAND 1 VIEWS BILATERAL (11/21/2017 1:54 PM PDT) + + | Specimen | + + | | + + + + + | Narrative | Performed At | + + + | EXAM: HAND 1 VIEW BILATERAL HISTORY: worsening wrist pain | [facility] | | COMPARISON: 11/29/2015 FINDINGS: Right hand: Severe radiocarpal | RADIOLOGY VOICE | | and ulnocarpal joint space narrowing, with associated sclerosis and | RECOGNITION 2 | | subchondral lucencies in the distal radius, scaphoid, and lunate. The | | | extent is similar to prior radiograph, however there is more cortical | | | irregularity and slightly increased joint space narrowing. There are | | | new erosions of the ulnar styloid process. There are secondary | | | degenerative DRUJ joint space narrowing and spurring as before. No | | | acute fracture. Left hand: Severe radiocarpal and ulnocarpal joint | | | space narrowing with associated sclerosis and subchondral lucencies | | | of the distal radius, scaphoid, lunate, and distal ulna. This has | | | mildly increased in comparison to prior radiograph, along with | | | cortical irregularity. No acute fracture. IMPRESSION: Mildly | | | progressed bilateral radiocarpal joint space narrowing and erosion, | | | compatible with rheumatoid arthritis. I have personally reviewed | | | the images and, if necessary, edited the report. I agree with the | | | report as now presented. Final signature: Tip Girard MD | | | 11/21/2017 3:35 PM Preliminary: Delia Parker MD | | | Dictation initiated: Delia Parker MD 11/21/2017 2:35 PM | | + + + + + | Procedure Note | + + | Service Account, [facility] In Interface - 11/21/2017 3:36 PM PDT EXAM: HAND 1 VIEW | | BILATERAL HISTORY: worsening wrist pain COMPARISON: 11/29/2015 FINDINGS: Right hand: | | Severe radiocarpal and ulnocarpal joint space narrowing, with associated sclerosis and | | subchondral lucencies in the distal radius, scaphoid, and lunate. The extent is similar | | to prior radiograph, however there is more cortical irregularity and slightly increased | | joint space narrowing. There are new erosions of the ulnar styloid process. There are | | secondary degenerative DRUJ joint space narrowing and spurring as before. No acute | | fracture. Left hand: Severe radiocarpal and ulnocarpal joint space narrowing with | | associated sclerosis and subchondral lucencies of the distal radius, scaphoid, lunate, | | and distal ulna. This has mildly increased in comparison to prior radiograph, along with | | cortical irregularity. No acute fracture. IMPRESSION: Mildly progressed bilateral | | radiocarpal joint space narrowing and erosion, compatible with rheumatoid arthritis. I | | have personally reviewed the images and, if necessary, edited the report. I agree with | | the report as now presented. Final signature: Tip Girard MD 11/21/2017 3:35 PM | | Preliminary: Delia Parker MD Dictation initiated: Delia Parker MD | | 11/21/2017 2:35 PM | |Mildly progressed bilateral radiocarpal joint space narrowing and erosion, compatible with rheumatoid arthritis. | | | |I have personally reviewed the images and, if necessary, edited the report. I agree with [facility] report as now presented. | | | |Final signature: Tip Girard MD 11/21/2017 3:35 PM | |Preliminary: Delia Parker MD | |Dictation initiated: Delia Parker MD 11/21/2017 2:35 PM | + + + +---------+ + + | Performing | Address | City/State/Zipcode | Phone Number | | Organization | | | | + +---------+ + + | [facility] | | | | | VOICE RECOGNITION 2 | | | | + +---------+ + + documented in this encounter Visit Diagnoses + + | Diagnosis | + + | 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 rheumatoid arthritis (HCC) Rheumatoid arthritis | + + documented in this encounter"
--- OUTSIDE RECORDS SUMMARY | ~2020-01-05 | XMS | Encounter Summary ---
Demographics + + + | Address | [address] | | | [place] [address] | + + + | Home Phone | | + + + | Preferred Language | Unknown | + + + | Marital Status | | + + + | Mormonism Affiliation | Unknown | + + + [...] Team Providers + +------+ + | Care Waterproofing Mixer Name | Role | Phone | + +------+ + | Isacc Chi | PCP | | + +------+ + Reason for Visit + + + | Reason | Comments | + + + | Refill Request | | + + + Encounter Details +--------+--------+ + + + | Date | Type | Department | Care Team | Description | +--------+--------+ + + + | 12/18/ | Refill | Rheumatology at | [facility] | Refill Request | | 2017 | | [facility] [address] | | | | | [address] | [address] | | | | | [address] Phys[address] | [place], [place] | | | | | [place] | [address] | | | | | [place], [place] | [phone] | | | | | [address] | | | | | | [phone] | | | +--------+--------+ + + + [...] this encounter Miscellaneous Notes Telephone Encounter - Ofelia Espinoza MA - 12/18/2016 2:33 PM PDTFormatting of this no te might be different from the original. REFILL REQUEST MESSAGE: IS THIS MEDICATION ON CURRENT MEDICATION LIST (YES/NO)? yes DATE OF REQUEST REC'D FROM PHARMACY/PATIENT: 12/18/2016 LAST FILLED: 10/30/2016 Pending prescriptions this encounter Medication Name Sig Last Dispense Amt Last Refill Amt Date last Refilled PREDNISONE 5 mg oral tablet TAKE TWO TABLETS BY MOUTH ONCE DAILY FOR RHEUMATOID ARTHRITIS 28 tablet 0 10/30/2016 [facility] [id number] [place] [address] Last Appointment in [facility] was on 09/27/16 at 1:00 pm with Dominique Nunn NP. Next Appointment in [facility] is on 12/28/16 at 12:00 pm with RAMON Nunn. Medication pended, please check for accuracy. Pharmacy verified. Routed to MD to review and sign if appropriate. documented in this encounter Plan of Treatment Not on filedocumented as of this encounter Visit Diagnoses Not on filedocumented in this encounter"
--- OUTSIDE RECORDS SUMMARY | ~2020-01-05 | XMS | Encounter Summary ---
Demographics + + + | Address | [address] | | | [place] [address] | + + + | Home Phone | | + + + | Preferred Language | Unknown | + + + | Marital Status | | + + + | Pentecostalism Affiliation | Unknown | + + + | Race | White | + + + | Ethnic Group | or | + + + Author + + + | Author | [facility] | + + + | Organization | [facility] | + + + | Address | Unknown | + + + | Phone | Unavailable | + + + Support + + +---------+ + | Name | Relationship | Address | Phone | + + +---------+ + | Brittanie Remy | ECON | Unknown | | + + +---------+ + Care Team Providers + +------+ + | Care Bilingual Secretary Name | Role | Phone | + [...] Closed | | Rheumatology | Diagnoses | Non-[facility] | [facility] | | | | | Rheumatoid | Epic Dept | [facility] [address] | | | | | arthritis | | [address] | | | | | with | | Loop | | | | | rheumatoid | | Physician's | | | | | factor, | | [address], [address] | | | | | unspecified | | Floor | | | | | | | [place], [place] | | | | | | | [address] | | | | | | | Phone: | | | | | | | [phone] | | | | | | | Fax: | | | | | | | [phone] | +--------+--------+ + + + + Encounter Details +--------+---------+ + + + | Date | Type | Department | Care Team | Description | +--------+---------+ + + + | 07/30/ | Office | Rheumatology at | Afshan Wright | 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 | | 2017 | Visit | [facility] [place] | [place], 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[address] | rheumatoid 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 | | | | [address] | [address] | ([facility]) (Primary Dx); | | | | Loop Physician's | [place], [place] | Long-term use of | | | | [address], [address] Floor | [address] | high-risk | | | | [place], [place] | [phone] | medication; Vitamin | | | | [address] | | D deficiency | | | | [phone] | | | +--------+---------+ + + + [...] + + + | Blood Pressure | 128/81 | 07/30/2016 1:51 PM | | | | | PDT | | + + + + + | Pulse | - | - | | + [...] + + + + | Weight | 79 kg (174 lb 2.6 | 07/30/2016 1:51 PM | | | | oz) | PDT | | + + + + + | Height | 157.5 cm (5' 2.01") | 07/30/2016 1:51 PM | | | | | PDT | | + + + + + | Body Mass Index | 31.85 | 07/30/2016 1:51 PM | | | | | PDT | | + + + + + documented in this encounter Patient Instructions Patient Instructions Afshan Wright FNP - 07/30/2016 2:00 PM PDT prednisone Renetta: Kate, Sterapred, Sterapred 12 DAY, Sterapred DS, Sterapred DS 12 DAY Cul es la informacin ms importante que ariella saber sobre prednisone? Prednisone trata muchas condiciones diferentes, tales gt enfermedades alrgicas, condici ones de la piel, colitis ulcerosa, artritis, lupus, psoriasis o trastornos de la respiraci n. Usted no debe jayde prednisone si tiene alannah infeccin por hongos en cualquier parte de traore cuerpo. Los medicamentos esteroides puede debilitar traore sistema inmune, hacindole ms fcil que obtenga alannah infeccin. Evite estar cerca a personas enfermas o que tengan infecciones. No r eciba alannah vacuna "viva" mientras usa prednisone. Llame a traore mdico de inmediato si usted tiene falta de aire al respirar, dolor jazlyn en l a parte superior del estmago, heces fecales con tanesha o alquitranadas, depresin severa, cambios en traore personalidad o comportamiento, problemas con la visin, o dolor en los ojos. Usted no debe dejar de usar prednisone de forma repentina. Siga las instrucciones de traore m dico de cash crop farmer disminuir de forma gradual traore dosis. Qu es prednisone? Prednisone es un esteroide. Prednisone previene la liberacin de sustancias en el cuerpo q ue causan inflamacin. Prednisone tambin suprime el sistema inmunolgico. Prednisone se usa gt un antiinflamatorio o un medicamento inmunosupresor. Prednisone trat a muchas condiciones diferentes, tales gt enfermedades alrgicas, condiciones de la piel, colitis ulcerosa, artritis, lupus, psoriasis o trastornos de la respiracin. Prednisone puede tambin usarse para fines no mencionados en esta gua del medicamento. Qu debera discutir con el profesional del cuidado de la anil antes de usar prednison e? No debe usar esta medicina si usted es alrgico a prednisone, o si tiene alannah infeccin po r hongos en cualquier parte del cuerpo. Los medicamentos esteroides pueden debilitar traore sistema inmune, hacindole ms fcil que obtenga alannah infeccin o empeorando alannah infeccin que tenga o haya tenido recientemente. D gale a traore mdico acerca de cualquier enfermedad o infeccin que usted haya tenido en las ltimas semanas. Para asegurarse que prednisone es seguro para usted, dgale a traore mdico si usted tiene: cualquier enfermedad que causada diarrea; enfermedad del hgado (gt cirrosis); enfermedad del rin; enfermedad del corazn, presin arterial gloria, niveles bajos de potasio en traore tanesha; trastorno de la glndula tiroidea; diabetes; historial de malaria; tuberculosis; osteoporosis; glaucoma, cataratas, infeccin por herpes de los ojos; lcera estomacal, colitis ulcerativa, o un historial de sangrado en el estmago; un problema muscular gt miastenia grave; o depresin o enfermedad mental. El uso prolongado de esteroides puede causar perdida sea (osteoporosis), especialmente si usted fuma, si no hace ejercicio, si no cruz bastante vitamina D o calcio en traore dieta, o si usted tiene historial familiar de osteoporosis. Hable con traore mdico de xin riesgos de oste oporosis. Prednisone puede causar bajo peso al nacer o defectos de nacimiento si se cruz la medicina marie el primer trimestre del embarazo. Dgale a traore mdico si usted est embarazada o p lanea quedar embarazada mientras est usando suzy medicamento. Use un mtodo efectivo de c ontrol de la natalidad. Prednisone puede pasar a la leche materna y causarle shamar al beb lactante. Dgale a traore mdico si est dando de amamantar a un beb. Los esteroides puede afectar el crecimiento en los nios. Hable con traore mdico si piensa q ue traore nio no est creciendo a paso normal mientras est usando esta medicina. Pharmaceutical Botanist ariella jayde prednisone? Siga todas las instrucciones en la etiqueta de traore prescripcin. Traore mdico puede en alireza edin cambiar traore dosis para asegurarse de que usted est obteniendo los mejores resultados. N o tome esta medicina en cantidades mayores o menores, o por ms tiempo de lo recomendado. [place] con comida. Traore dosis jm vez necesite ser cambiada si usted tiene un estrs inusual gt alannah enfermeda d grave, fiebre, o infeccin, o si tiene ciruga o alannah emergencia mdica. No cambie la do sis u horario de traore medicamento sin el consejo de traore mdico. Mida la medicina lquida con alannah cuchara o taza de medicin especial. Si no tiene con qu medir traore medicina, pdale alannah cuchara o taza de medicin a traore farmacutico. No triture, mastique, o rompa alannah tableta de liberacin retardada. Trguela entera. Mientras usa prednisone, usted puede necesitar exmenes de tanesha con frecuencia en la ofi cina de traore mdico. Traore presin sangunea puede tambin necesita ser examinada. Suzy medicamento puede causar resultados inusuales con ciertas pruebas mdicas. Dgale a cualquier mdico que lo atiende que usted est usando prednisone. Usted no debe dejar de usar prednisone de forma repentina. Siga las instrucciones de traore m dico de cash crop farmer disminuir de forma gradual traore dosis. Lleve con usted alannah tarjeta de identificacin que indique que usted est tomando predniso ne. Cualquier proveedor del cuidado mdico que lo trate debera saber que usted est usan do un esteroide. Guarde a temperatura ambiente fuera de la humedad y del calor. Qu sucede si me basia alannah dosis? [place] la dosis que jacquie de jayde jones pronto se acuerde. Sltese la dosis que jacquie de cruz r si ya alice es hora para la siguiente dosis. No use ms medicina para alcanzar la dosis qu e jacquie de jayde. Qu sucedera en alannah sobredosis? Busque atencin mdica de emergencia o llame a la lnea de [facility] al . Alannah sobredosis de prednisone no se espera que produzca sntomas que amenacen traore mehdi. Sin embargo, el uso prolongado de altas dosis de esteroides pueden llevar a sntomas gt adelg azamiento de la piel, moretones fciles, cambios en la forma o en lugares donde se acumula la grasa del cuerpo (en particular en traore luis a, elliott, espalda, y cintura), aumento del acn o greg facial, problemas de la menstruacin, impotencia, o prdida del inters en el sexo. Qu ariella evitar mientras uso prednisone? Evite estar cerca a personas enfermas o que tengan infecciones. Llame a traore mdico para tra tamiento preventivo si usted cruz estado expuesto a la varicela o sarampin. Estas condicione s pueden ser graves o hasta fatales en las personas que estn usando un esteroide. No reciba alannah vacuna "viva" mientras usa prednisone. Prednisone puede aumentar traore riesgo de efectos nocivos por alannah vacuna viva. Las vacunas zulema incluyen sarampin, paperas, rubo la (MMR), rotavirus, tifoidea, fiebre amarilla, varicela, zster (culebrilla), y la vacuna nasal para la influenza. Evite beber alcohol mientras est tomando prednisone. Cules son los efectos secundarios posibles de prednisone? Busque atencin mdica de emergencia si usted tiene alguno de estos sntomas de alannah reac margi alrgica: ronchas; dificultad para respirar; hinchazn de la luis a, labios, lengua, o garganta. Llame a traore mdico de inmediato si usted tiene: visin borrosa, dolor de los ojos, o judd halos alrededor de las luces; hinchazn, ganancia rpida de peso, sentir que le falta aire al respirar; depresin severa, sentimientos de montana o tristeza extremas, cambios en traore personal idad o comportamiento, convulsiones; heces fecales con tanesha o alquitranadas, tos con tanesha; pancreatitis (dolor naveen en la parte anterior del estmago que se distribuye a la espa lda, nusea y vmito, paso cardaco rpido); bajo nivel de potasio (confusin, latido cardaco desigual, sed extrema, aumento de qu erer orinar, molestia en las piernas, debilidad o flacidez muscular); o presin arterial peligrosamente gloria (dolor de brielle jazlyn, visin borrosa, zumbido en xin odos, ansiedad, confusin, dolor de pecho, falta de aire al respirar, latidos card acos desiguales, convulsiones). Otros efectos secundarios comunes pueden incluir: problemas para dormir (insomnio), cambios del humor; aumento del apetito, ganancia de peso gradual; acn, aumento del sudor, piel seca, adelgazamiento de la piel, moretones o cambios de c olor; cicatrizacin lenta de heridas; dolor de brielle, mareo, sensacin de que gira; nuseas, dolor de estmago, distensin abdominal; o cambios en la forma o lugar donde se acumula la grasa del cuerpo (en particular en xin b razos, piernas, luis a, elliott, pecho, y cintura). Esta lista no menciona todos los efectos secundarios y puede ser que ocurran otros. Llame a traore mdico para consejos mdicos relacionados a efectos secundarios. Ana puede reportar efectos secundarios llamando al FDA al [phone]. Qu otras drogas afectarn a prednisone? Muchas drogas pueden tener interacciones con prednisone. No todas las interacciones posible s se enumeran aqu. Dgale a traore mdico acerca de todos xin medicamentos, incluyendo cualq uiera que comience o deje de usar marie traore tratamiento con prednisone, especialmente: amphotericin B; cyclosporine; digoxin, digitalis; Chastity's wort; un antibitico gt clarithromycin o telithromycin; medicamento antifngico itraconazole, ketoconazole, posaconazole, voriconazole; pastillas anticonceptivas y otras hormonas; un anticoagulante gt warfarin, Coumadin; un diurtico o "pastilla para eliminar el agua"; los medicamentos para la hepatitis C, boceprevir o telaprevir; medicamentos para el VIH o SIDA, gt atazanavir, delavirdine, efavirenz, fosamprenavir, indinavir, nelfinavir, nevirapine, ritonavir, saquinavir; insulina o medicinas para la diabetes que se rafael por la boca; un antiinflamatorio no esteroide (SEUN, NSAID por xin siglas en Ingl[place]), gt aspirin, ibuprofen (Advil, Motrin), naproxen (Aleve), celecoxib, diclofenac, indomethacin, meloxicam, y otros; medicamentos para convulsiones, gt carbamazepine, fosphenytoin, oxcarbazepine, phenoba rbital, phenytoin, primidone; o los medicamentos para la tuberculosis isoniazid, rifabutin, rifapentine, o rifampin. Esta lista no est completa y muchas otras drogas pueden interactuar con prednisone. [place] incluye las medicinas que se obtienen con o sin receta, vitaminas, y productos herbarios. De le alannah lista de todas xin medicinas a cualquier profesional de la anil que lo atienda. Dnde puedo obtener ms informacin? Traore farmacutico le puede jesus ms informacin acerca de prednisone. Recuerde, mantenga sta y todas las otras [...] consumidor en l os [place] [facility] [place] y por lo cual Lauren no certifica que el uso fue ra [...] con traore mdico, enfermera, o farmacutico. Copyright 2091-9007 [facility], [place]. Version: 9.01. Revision date: 06/30/2012. Instrucciones de cuidado adaptadas bajo licencia por traore profesional de la anil. Si tiene p reguntas acerca de alguna condicin mdica o de estas instrucciones, consulte siempre a traore profesional de la anil. [facility] niega cualquier garanta o responsabilid ad por traore uso de esta informacin. documented in this encounter Progress Notes Afshan Wright FNP - 07/30/2016 2:00 PM PDTFormatting of this note might be differe nt from the original. Progress Note Clinic: Rheumatology Reason for follow-up: Chief Complaint Patient presents with RA - Rheumatoid arthritis Medication management Follow-up visit Ms. Sandrita Queen was last seen March 07, 2016. RENÉ is the hide buffer on the phone. She has had issues getting to clinic d/t weather limitations coming from [place]. She had an extended and significant respiratory illness and stopped methotrexate and Orenci a in that period/ She was off meds for ~1 mo and has only returned for ~2wks. She reports that her arthritis was reasonably controlled until falling off of meds. Her right ankle, left knee and b/l wrists have been the worst though many scattered PIP/MCP have also been red, warm and swollen. She is having difficulty flexing her wrists. EMS 10min? No exercise. RIGHT HANDED FEMALE ROS: General: Intermittent fever, weight loss >10#, [...] vomiting, constipation, diarrhea, m dedra. 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 Neuro: Dizziness, loss of balance, weakness, paralysis, syncope, paresthesias, headaches. MSK: Myalgia, hand swelling, ankle swelling, swelling in other joints, arthralgia, back pa in, neck pain. Psych: Depression, anxiety, issues with concentration or memory, sleep disturbance, probl ems with social activities. Past Medical History: Past Medical History: Diagnosis Date 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 rheumatoid arthritis (HCC) Medications: Current Outpatient Prescriptions Medication Sig abatacept (ORENCIA) 125 mg/mL subcutaneous syringe Inject 125 mg under the skin (SUBC) every seven days. LABEL IN MONEGASQUE. DISCONTINUE ALL XELJANZ REFILLS. folic acid 1 mg oral tablet Take 1 tablet by mouth once daily. MUST BE TAKEN WHEN USING METHOTREXATE (LABEL IN MONEGASQUE). ibuprofen (ADVIL) 100 mg oral tablet Take 100 mg by mouth every six hours as needed. methotrexate 25 mg/mL injection solution Inject 1 mL into the muscle (IM) every seven d ays. Indications: RHEUMATOID ARTHRITIS predniSONE 5 mg oral tablet Take 2 tablets by mouth once daily. Indications: Rheumatoid Arthritis No current facility-administered medications for this visit. Allergies: Review of patient's allergies indicates no known allergies. Social History: Dominga reports that she has never smoked. She does not have any smokeless to bacco history on file. Family History: Family history includes Non-contributory in her brother, father, mother, an d sister. Physical Exam: BP 128/81 | Ht 1.575 m (5' 2.01") | Wt 79 kg (174 lb 2.6 oz) | BMI 31.85 kg/(m^2) Pain Scor e: 7 Rapid 3 MHAQ: 2.0 (07/30/16 1500) PAIN LEVEL: 5 (07/30/16 1500) GLOBAL ASSESSMENT: 5 (07/30/16 1500) RAPID 3: 4 (07/30/16 1500) Gen: Well nourished, well developed, in NAD HEENT: unremarkable Ext: No clubbing, cyanosis, or edema M/S: LARIOS 28 +left knee mild effusion; right ankle moderate effusion Skin: moderate varicosities left LE Neuro: normal Labs: Lab Results Component Value Date WBC 5.79 07/30/2016 RBC 4.32 07/30/2016 HCT 38.0 07/30/2016 HB 12.7 07/30/2016 MCV 88.0 07/30/2016 MCHC 33.4 07/30/2016 PLT 231 07/30/2016 NEUTROPERC 56.6 07/30/2016 LYMPHPERC 32.1 07/30/2016 MONOPERC 8.3 07/30/2016 EOSPERC 2.1 07/30/2016 BASOPERC 0.7 07/30/2016 NEUTROPHILCO 3.28 07/30/2016 GLU 236 (H) 07/30/2016 BUN 12 07/30/2016 CR 0.53 (L) 07/30/2016 TP 7.9 07/30/2016 ALB 3.9 07/30/2016 CA 8.9 07/30/2016 TBILI 0.3 07/30/2016 AP 150 (H) 07/30/2016 AST 48 (H) 07/30/2016 NA 140 07/30/2016 K 3.6 07/30/2016 CL 104 07/30/2016 BICARB 29 07/30/2016 ALT 78 (H) 07/30/2016 Lab Results Component Value Date ESR 31 07/30/2016 ESR 31 03/27/2016 ESR 29 11/29/2015 Lab Results Component Value Date PPMF32VDCJOW 4.7 07/30/2016 Impression: This is a 35 y.o. female [...] DAS28 Score 5.5 Disease Activity Level High RHM FLOWSHEET 03/27/2016 07/30/2016 07/30/2016 RAPID 3 2.9 4 Total Tender Joints 11 Total Swollen Joints 6 ESR 31 Global Health Value 5 DAS28 Score 5 Disease Activity Level Moderate Plan: 1. Due to illness she, appropriately, was w/o her RA meds for ~1mo. She has returned to us e over the last 2wks. This definitely is problematic for assessing her RA. I'd not seen he r for several mo (she lives in [place]- has difficulty w/ transportation- and the weather has been extreme during the winter) so I don't know her true response to Orencia. She state s disease control in the interim but this is not clear as there were issues w/ the phone int erpreter. We will continue methotrexate and Orencia for now. There are mild elevations in her LFTs which will have to be closely monitored. 2. Rx ergocalciferol 50,000IU/wk for 12wks recheck vitamin D 25-OH. 3. Labs: CBC, CMP, ESR/CRP and vitamin D 25-OH. 4. Clinical reeval at 2 mo. Sooner if needed. [facility] [address] [place] [address] Mailcode: Op09 [facility], [address]th [facility] [phone] Display Progress Note in MyChart: No documented in t his encounter Plan of Treatment Not on filedocumented as of this encounter Results VITAMIN D, 25-HYDROXY, SERUM (07/30/2016 2:58 PM [...] | + + + + + | [facility] | [address] | [place] [address] | | | [place] | [address] | | | + [...] and new reporting units as of | [facility] | | 10/07/2013. | LABORATORY | | | SERVICES, CORE | + + + + + + + + | Performing | Address | City/State/Zipcode | Phone Number | | Organization | | | | + + + + + | [facility] | [address] | [place] [address] | | | SERVICES, CORE | PARK [...] | | | LABORATORY | | | STATELESS | | | SERVICES, | | | [...] Interpretive Information: <60 mL/min/1.73 sq m | [place] | | Chronic Kidney Disease <15 mL/min/1.73 [...] | + + + + + | [facility] | [address] | [place] [address] | | | [place] | [address] | | | + [...] | + + + + + | [facility] | [address] | [place] [address] | | | SERVICES, [place] | [address] | | | + + + + + documented in this encounter Visit Diagnoses + + | Diagnosis | + + | 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 rheumatoid arthritis (HCC) - Primary Rheumatoid arthritis | + + | Long-term use of high-risk medication | + + | Vitamin D deficiency | + + documented in this encounter
--- OUTSIDE RECORDS SUMMARY | ~2020-01-05 | XMS | Encounter Summary ---
Demographics + + + | Address | [address] | | | [place] [address] | + + + | Home Phone | | + + + | Preferred Language | Unknown | + + + | Marital Status | | + + + | Temple Affiliation | Unknown | + + + | Race | White | + + + | Ethnic Group | or | + + + Author + + + | Author | [facility] | + + + | Organization | [facility] | + + + | Address | Unknown | + + + | Phone | Unavailable | + + + Support + + +---------+ + | Name | Relationship | Address | Phone | + + +---------+ + | Brittanie Remy | ECON | Unknown | | + + +---------+ + Care Team Providers + +------+ + | Care Cashier Tube Room Name | Role | Phone | + +------+ + | Stephanie Miller MD | PCP | | + +------+ + Encounter Details +--------+ + + + + | Date | Type | Department | Care Team | Description | +--------+ + + + + | 04/08/ | Pharmacy | [facility] | | | | 2018 | Visit | [address] | | | | | | [facility] [address] | | | | | | [place] [address] | | | | | | [phone] | | | +--------+ + + + [...]
--- OUTSIDE RECORDS SUMMARY | ~2020-01-05 | XMS | Encounter Summary ---
Demographics + + + | Address | [address] | | | [place] [address] | + + + | Home Phone | | + + + | Preferred Language | Unknown | + + + | Marital Status | | + + + | Evangelical Affiliation | Unknown | + + + | Race | White | + + + | Ethnic Group | or | + + + Author + + + | Author | [facility] | + + + | Organization | [facility] | + + + | Address | Unknown | + + + | Phone | Unavailable | + + + Support + + +---------+ + | Name | Relationship | Address | Phone | + + +---------+ + | Brittanie Remy | ECON | Unknown | | + + +---------+ + Care Team Providers + +------+ + | Care Radiation Therapist Name | Role | Phone | + +------+ + | Isacc Chi | PCP | | + +------+ + Encounter Details +--------+ + + + + | Date | Type | Department | Care Team | Description | +--------+ + + + + | 07/31/ | Telephone | Rheumatology at | Afshan Wright | | | 2017 | | SU[facility] [address] | | | | | [address] | [address] | | | | | Loop Physician's | [place], [place] | | | | | [place], [address] [place] [address] | [address] | | | | | [place], [place] | [phone] | | | | | [address] | | | | | | [phone] | | | +--------+ + + + [...] Telephone Encounter - Deedee Lynne MA - 08/02/2016 2:30 PM PDTPatient is aware that s he needs to take the medication. She would like to discuss her labs at her next visit (09/18 ). elephone Encounter - Afshan Wright FNP - 08/02/2016 2:23 PM PDTShe needs to take the med (high dose v itamin D) I sent over. Not have more labs. Please call patient to clarify. SUAD Nunn FNP [facility] [address] [place] [address] Mailcode: Op09 [facility], [address] [facility] [phone] elephone Encou ntaki - Deedee Lynne MA - 08/02/2016 1:24 PM PDTCalled patient using postulant [employer]. Informed patient of information below. She verbalized understanding. She would like t he lab order to check her vitamin D levels sent to the facility where she has her standing o rders. She has an appointment on 09/18. She can take her external orders at that time. Routing to provider for informational purposes. elephone Encounter - Afshan Wright FNP - 07/31/2016 10:0 4 AM PDTPlease call patient to let her know her vitamin D level is very low. Vitamin D is critical for bone health especially in arthritis. She will need to take a very high dose of vitamin D once weekly. I have sent a prescription to her pharmacy. We will check her levels when she returns but she needs to start the medication right away. Pt is Croatian speaking only and an postulant will need to be used for the call. SUAD Nunn FNP [facility] [address] [place] [address] Mailcode: Op09 [facility], [address] [facility] [phone] documented in t his encounter Plan of Treatment Not on filedocumented as of this encounter Visit Diagnoses Not on filedocumented in this encounter"
--- OUTSIDE RECORDS SUMMARY | ~2020-01-05 | XMS | Encounter Summary ---
Demographics + + + | Address | [address] | | | [place] [address] | + + + | Home Phone | | + + + | Preferred Language | Unknown | + + + | Marital Status | | + + + | Synagogue Affiliation | Unknown | + + + [...] Team Providers + +------+ + | Care Airplane Tester Name | Role | Phone | + +------+ + | Stephanie Miller MD | PCP | | + +------+ + Reason for Visit + + + | Reason | Comments | + + + | RA - Rheumatoid | | | arthritis | | + + + | Ankle pain | | + + + | Intra-articular | | | injection | | + + + | Follow-up visit | | + + + Office Visit - E/M Services (Routine) +--------+--------+ + + + + | Status | Reason | Specialty | Diagnoses / | Referred By | Referred To | | | | | Procedures | Contact | Contact | +--------+--------+ + + + + | Closed | | Rheumatology | Diagnoses | Angela, | Schdanny, | | | | | Rheumatoid | Stephanie Fox MD | Afshan Buchanan, | | | | | arthritis | [address] [address] | | | | | with | St | [address] | | | | | rheumatoid | Rajesh, | Charisse Caraballo | | | | | factor, | [place] [address] | [place], [place] | | | | | unspecified | Phone: | [phone] | | | | | Procedures | [phone] | Phone: | | | | | MS EST | Fax: | [phone] | | | | | PATIENT | [phone] | Fax: | | | | | LEVEL V | | [phone] | +--------+--------+ + + + + Encounter Details +--------+---------+ + + + | Date | Type | Department | Care Team | Description | +--------+---------+ + + + | 11/21/ | Office | Rheumatology at | Afshan Wright | Acute right ankle | | 2018 | Visit | [facility] [address] | pain (Primary Dx); | | | | [address] | [address] | 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 | | | | Loop Physician's | [place], [place] | rheumatoid arthritis | | | | [place], [address] | [address] | ([facility]); Long-term | | | | [place], [place] | [phone] | use of high-risk | | | | [phone] | | medication | | | | [phone] | | | +--------+---------+ + + + [...] + + + | Blood Pressure | 104/70 | 11/21/2017 12:50 PM | | | | | PDT | | + + + + + | Pulse | 70 | 11/21/2017 12:50 PM | | | | | PDT [...] + + + + | Weight | 70.3 kg (155 lb) | 11/21/2017 12:50 PM | | | | | PDT | | + + + + + | Height | - | - | | + + + + + | Body Mass Index | 28.34 | 07/30/2016 1:51 PM | | | | | PDT | | + + + + + documented in this encounter Patient Instructions Patient Instructions Afshan Wright FNP - 11/21/2017 1:00 PM PDT Inyecciones en alannah articulacin: Instrucciones de cuidado - [ Joint Injections: Care Instr uctions ] Instrucciones de cuidado Las inyecciones en alannah articulacin son inyecciones que se leodan en alannah articulacin, gt en la rodilla. Se utilizan para administrar medicamentos, tales gt analgsicos (medicamen tos para el dolor). Alannah inyeccin de corticosteroides, o esteroides, se utiliza para reducir la inflamacin e n los tendones o las articulaciones. A menudo se usa para tratar problemas gt la artritis, la tendinitis y la bursitis. Los esteroides pueden inyectarse directamente en alannah articulacin adolorida e inflamada. T ambin pueden ayudar a reducir la inflamacin de alannah bursa. Alannah bursa (o bolsa) es un saco lleno de lquido. Amortigua y lubrica las reas donde los tendones, los ligamentos, la pi el, los msculos o los huesos se rozan entre s. Alannah inyeccin de esteroides a veces puede ayudar con el alivio del dolor a corto plazo tyron ndo otros tratamientos no galloway funcionado. Si las inyecciones de esteroides ayudan, el dolor podra aliviarse marie semanas o meses. La atencin de seguimiento es alannah parte clave de traore tratamiento y seguridad. Asegrese de hacer y acudir a todas las citas, y llame a traore mdico si est teniendo problemas. Tambi n es alannah buena idea saber los resultados de xin exmenes y mantener alannah lista de los medica mentos que cruz. Silk Screen Repairer puede cuidarse en el hogar? Aplquese hielo o alannah compresa fra en la luis carlos por entre 10 y 20 minutos cada vez. P ngase un denise armendariz entre el hielo y la piel. Pregntele a traore mdico si puede jayde un analgsico de venta lucy, gt acetaminof n (Tylenol), ibuprofeno (Advil, Motrin) o naproxeno (Aleve). Sea aleta con los medicament os. Karen y siga todas las instrucciones de la etiqueta. Evite las actividades intensas marie varios membreno. En particular, evite aquellas activ idades que sobrecarguen la luis carlos en la que recibi la inyeccin. Si tiene vendajes sobre la luis carlos, mantngalos limpios y secos. Puede quitrselos cuando traore mdico se lo indique. Cundo debe pedir ayuda? Llame a traore mdico ahora mismo o busque atencin mdica inmediata si: Tiene geno de infeccin, tales gt: Aumento del dolor, la hinchazn, la temperatura o el enrojecimiento. Vetas rojizas que salen de la luis carlos. Pus que sale de la luis carlos. Fiebre. Preste especial atencin a los cambios en traore anil y asegrese de comunicarse con traore m dico si tiene algn problema. Dnde puede encontrar ms informacin en ingls? Para aprender ms sobre "Inyecciones en alannah articulacin: Instrucciones de cuidado - [ Juliann int Injections: Care Instructions ]", entre a traore cuenta de Gisella en [email or web address]. Puede ingresar N616 en la celda de bsqueda del "Health Library". No est registrado en MyChart? 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 Revisado: 2016 Versin del contenido: 03.12-2018 [employer]. Las instrucciones de cuidado fueron adaptadas bajo l icencia por [facility]. Si usted tiene preguntas sobre alannah afeccin mdica o sobre estas instrucciones, siempre pregunte a traore profesional de anil. [place] niega toda garanta o responsabilidad por traore [...] ejercicios y cules funcionarn mejor para usted. Silk Screen Repairer hacer los ejercicios Ejercicio del "alfabeto" 1. Trace las letras del alfabeto con el dedo cheo del pie. [place] ayuda a claim auditor el tobillo e n todas las direcciones. [...] mentos que cruz. Dnde puede encontrar ms pantera en ingls? Para aprender ms sobre "Tobillo: Ejercicios - [ Ankle: Exercises ]", entre a traore cuenta de MyChart en [email or web address]. Puede ingresar R730 en la celda de bsqueda del "[facility] [employer]". No est registrado en MyChart? 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 Revisado: 2016 Versin del contenido: 03.12-2018 [employer]. Las instrucciones de cuidado fueron adaptadas bajo l icencia por [facility]. Si usted tiene preguntas sobre alannah afeccin mdica o sobre estas instrucciones, siempre pregunte a traore profesional de anil. [place] niega toda garanta o responsabilidad por traore uso de esta informacin. documented in this encounter Progress Notes Afshan Wright FNP - 11/21/2017 1:00 PM PDTFormatting of this note might be differe nt from the original. Progress Note Clinic: Rheumatology Reason for follow-up: Chief Complaint Patient presents with RA - Rheumatoid arthritis Ankle pain Intra-articular injection Follow-up visit Ms. Sandrita Queen was last August 15, 2017. Here w/ daughter in law Brittanie. Travelling from [place], [place]. MTX withdrawn after LFT's continued to rise. There have been no other labs drawn- according to pt- since that time. She is now on metformin for her DM and is SMBG every 3rd day. Here acutely- she has had ~3wks of severe right ankle pain. The left wrist has continued to have issues as well. Ankle is swelling and she's having great difficulty ambulating. "My ankle feels like it will break while I'm walking." OK at rest. Oral prednisone was not much help. She has missed one day of work but otherwise forces herself to go. No injury before onset of pain. No consitutional sx. EMS 30min. ROS: Please see scanned intake document. Detail reviewed face to face w/ patient. Relevant ROS detailed in HPI. Past Medical History: Past Medical History: Diagnosis Date 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 rheumatoid arthritis (HCC) Medications: Current Outpatient Prescriptions Medication Sig abatacept (ORENCIA) 125 mg/mL subcutaneous syringe Inject 125 mg under the skin (SUBC) every seven days. LABEL IN [place]. DISCONTINUE ALL XELJANZ REFILLS. ergocalciferol (VITAMIN D2) 50,000 unit oral capsule Take 1 capsule by mouth every nelson n days. LABEL ONLY IN [place]. Indications: Vitamin D Deficiency (High Dose Therapy) folic acid 1 mg oral tablet Take 1 tablet by mouth once daily. MUST BE TAKEN WHEN USING METHOTREXATE (LABEL IN [place]). ibuprofen (ADVIL) 100 mg oral tablet Take 100 mg by mouth every six hours as needed. metFORMIN 500 mg oral tablet Take 1 tablet by mouth two times daily. omeprazole 20 mg oral capsule,delayed release(DR/EC) Take 1 capsule by mouth once daily . No current facility-administered medications for this visit. Allergies: Methotrexate Social History: aNvjot reports that she has never smoked. She has never used smokeless tobac co. Family History: Family history includes Non-contributory in her brother, father, mother, an d sister. Physical Exam: BP 104/70 | Pulse 70 | Wt 70.3 kg (155 lb) | LMP 11/10/2017 | BMI 28.34 kg/(m^2) Pain Score : 7 Rapid 3 MHAQ: 3.7 (11/21/17 1300) PAIN LEVEL: 10 (11/21/17 1300) GLOBAL ASSESSMENT: 5 (11/21/17 1300) RAPID 3: 6.23 (11/21/17 1300) Gen: Well nourished, well developed, in NAD HEENT: unremarkable Ext: No clubbing, cyanosis, or edema M/S: MEMBRENO 28; +left ankle TTP; b/l wrists fixed deformity limiting [...] 22 01/31/2017 Lab Results Component Value Date [id number] 30.9 11/21/2017 Results for SANDRITA QUEEN, NAVJOT OSWALD ( ) as of 08/25/2017 14:32 Ref. Range 03/27/2016 11:40 07/30/2016 14:58 09/27/2016 14:01 01/31/2017 14:35 08/15/2017 14:1 8 AST(SGOT) Latest Ref Range: <=41 U/L 34 48 (H) 65 (H) 71 (H) 83 (H) AST CMNT Unknown No Hemo No Hemo No Hemo No Hemo No Hemo ALT (SGPT) Latest Ref Range: <=60 U/L 73 (H) 78 (H) 93 (H) 99 (H) 117 (H) ALK PHOS Latest Ref Range: 42 - 98 U/L 156 (H) 150 (H) 137 (H) 151 (H) 156 (H) Impression: This is a 37 y.o. female here for follow up of seropositive RA. Also addresse d: Vitamin d deficency and elevated liver function. Background information of RA: First symptoms started: 10mo before dx Date of diagnosis: 2006 ACPA: +186 RF: +52 DMARDs: Methotrexate; HCQ, SSZ and lefunomide failure Biologic: Abatacept; adalimumab (failure after efficacy for 6yrs) X-ray: Bilateral hands and feet 11/2015 [facility] Erosion: +feet; +wrists Functional Assessment: [facility] 08/15/2017 08/15/2017 11/21/2017 11/21/2017 RAPID 3 3.67 6.23 Total Tender Joints 8 8 Total Swollen Joints 1 2 ESR 29 20 Global Health Value 5 5 DAS28 Score 4.3 4.1 Disease Activity Level Moderate Moderate Plan: 1. Verbal informed consent obtained. PARQ. The right ankle was prepped in a sterile fashi on and injected w/ 20mg methylprednisolone and 1.25cc lidocaine 1%. The injection was ana ated w/o incident. Post care instructions provided. She understands to contact me should a ny concerns arise. 2. Continue abatacept consider other DMARD or change all? 3. Labs today: CBC, CMP, ESR and vitamin D 25-OH. 4. X-rays right ankle and b/l hands. 5. Clinical reeval 3-6wks. [facility] [address] [place] [address] Mailcode: Op09 [facility], [address] [place] [phone] Display Progress Note in MoFusehart: NoElectronically signed by SUAD Nunn at 12:04 PM PDTdocumented in this encounter Plan of Treatment Not on filedocumented as of this encounter Procedures + +--------+ + + + | Procedure Name | Priori | Date/Time | Associated Diagnosis | Comments | | | ty | | | | + +--------+ + + + | MS INTERMEDIATE | Routin | 11/21/2017 | Acute right ankle | | | JOINT OR BURSA | e | 1:45 PM | pain | | | ASPIRATION AND/OR | | PDT | | | | INJ W/O US GUIDE | | | | | + +--------+ + + + documented in this encounter Results VITAMIN D, 25-HYDROXY, SERUM (11/21/2017 2:02 PM PDT) + +-------+ + + + | Component | Value | Ref Range | Performed | Pathologist | | | | | At | Signature | + +-------+ + + + | VITAMIN D | 30.9 | 30 - 80 ng/mL | [facility] [...] + | [facility] | [address] | [place] [address] | | | SERVICES, CORE | [address] | | | + + + + + COMPLETE METABOLIC SET (NA,K,CL,CO2,BUN,CREAT,GLUC,CA,AST,ALT,BILI TOTAL,ALK PHOS,ALB,PROT TOTAL) (11/21/2017 2:02 PM PDT) + +---------+ + + + | Component | Value | Ref Range | Performed | Pathologist | | | | | At | Signature | + +---------+ + + + | GLUCOSE, | 106 (H) | 70 - 99 mg/dL | [facility] | | | PLASMA | | | LABORATORY | | | (LAB) | | | SERVICES, | | | | | | CORE | | + +---------+ + + + | BUN, PLASMA | 8 | 6 - 20 mg/dL | [facility] | | | (LAB) | | | LABORATORY | | | | | | SERVICES, | | | | | | CORE | | + +---------+ + + + | CREATININE | 0.60 | 0.60 - 1.10 | [facility] | | | PLASMA | | mg/dL | LABORATORY | | | (LAB) | | | SERVICES, | | | | | | CORE | | + +---------+ + + + | EGFR | >60 | >60 mL/min | [facility] | | | - | | | LABORATORY | | | [place] | | | SERVICES, | | | | | | CORE | | + +---------+ + + + | EGFR NON | >60 | >60 mL/min | [facility] | | | -GUERO | | | LABORATORY | | | RICAN | | | SERVICES, | | | | | | CORE | | + +---------+ + + + | SODIUM, | 142 | 136 - 145 | [facility] | | | PLASMA | | mmol/L | LABORATORY | | | (LAB) | | | SERVICES, | | | | | | CORE | | + +---------+ + + + | POTASSIUM, | 3.8 | 3.4 - 5.0 | [facility] | | | PLASMA | | mmol/L | LABORATORY | | | (LAB) | | | SERVICES, | | | | | | CORE | | + +---------+ + + + | CHLORIDE, | 107 | 97 - 108 mmol/L | [facility] | | | PLASMA | | | LABORATORY | | | (LAB) | | | SERVICES, | | | | | | CORE | | + +---------+ + + + | TOTAL CO2, | 30 | 21 - 32 mmol/L | [facility] | | | PLASMA | | | LABORATORY | | | (LAB) | | | SERVICES, | | | | | | CORE | | + +---------+ + + + | CALCIUM, | 8.9 | 8.6 - 10.2 | [facility] | | | PLASMA | | mg/dL | LABORATORY | | | (LAB) | | | SERVICES, | | | | | | CORE | | + +---------+ + + + | CALCIUM(ALB | 9.1 | 8.6 - 10.2 | [facility] | | | CORRECTED) | | mg/dL | LABORATORY | | | | | | SERVICES, | | | | | | CORE | | + +---------+ + + + | BILIRUBIN | 0.4 | 0.3 - 1.2 mg/dL | [facility] | | | TOTAL | | | LABORATORY | | | | | | SERVICES, | | | | | | CORE | | + +---------+ + + + | TOTAL | 8.4 (H) | 6.4 - 8.2 g/dL | [facility] | | | PROTEIN, | | | LABORATORY | | | PLASMA | | | SERVICES, | | | (LAB) | | | CORE | | + +---------+ + + + | ALBUMIN, | 3.8 | 3.5 - 4.7 g/dL | [facility] | | | PLASMA | | | LABORATORY | | | (LAB) | | | SERVICES, | | | | | | CORE | | + +---------+ + + + | ALK PHOS | 121 (H) | 42 - 98 U/L | [facility] | | | | | | LABORATORY | | | | | | SERVICES, | | | | | | CORE | | + +---------+ + + + | AST(SGOT) | 23 | <=41 U/L | [facility] | | | | | | LABORATORY | | | | | | SERVICES, | | | | | | CORE | | + +---------+ + + + | ALT (SGPT) | 39 | <=60 U/L | [facility] | | | | | | LABORATORY | | | | | | SERVICES, | | | | | | CORE | | + +---------+ + + + | ANION GAP | 5 | 4 - 11 mmol/L | [facility] | | | | | | LABORATORY | | | | | | SERVICES, | | | | | | CORE | | + +---------+ + + + | ANION | 5 | 4 - 11 mmol/L | [facility] | | | GAP(ALB | | | LABORATORY | | | CORRECTED) | | | SERVICES, | | | | | | CORE | | + +---------+ + + + | POTASSIUM | No Hemo | | [facility] | | | CMNT | | | LABORATORY | | | | | | SERVICES, | | | | | | CORE | | + +---------+ + + + | BILI T CMNT | No Hemo | | [facility] | | | | | | LABORATORY | | | | | | SERVICES, | | | | | | CORE | | + +---------+ + + + | AST CMNT | [...] [facility] | [address] | [place] [address] | | | SERVICES, CORE | [address] | | | + + + + + SEDIMENTATION RATE (11/21/2017 2:02 PM PDT) + +-------+ + + + | Component | Value | Ref Range | Performed | Pathologist | | | | | At | Signature | + +-------+ + + + | SEDIMENTATI | 20 | 0 - 20 mm/hr | [facility] [...] | + + + + + | [facility] | [address] | [place] [address] | | | SERVICES, CORE | [address] | | | + + + + + X-RAY HAND 1 VIEWS BILATERAL (11/21/2017 1:54 [...] Note | + + | Service Account, Radiant Res In Interface - 11/21/2017 3:36 PM [...] necessary, edited the report. I agree with e report as now presented. | | | [...] | | | + +---------+ + + X-RAY ANKLE 2 VIEWS RIGHT (11/21/2017 1:54 PM PDT) + + | Specimen | + + | | + + + + + | Narrative | Performed At | + + + | EXAM: ANKLE 2 VIEWS RIGHT HISTORY: 3 weeks of severe right ankle | [facility] | | pain. History of rheumatoid arthritis COMPARISON: Feet radiograph | RADIOLOGY VOICE | | 11/29/2015 FINDINGS: No acute fracture. There is no erosions | RECOGNITION 2 | | seen within the ankle. Lucent lesion within the fifth metatarsal is | | | partially visualized and incompletely evaluated on ankle radiographs, | | | likely reflecting intraosseous cyst formation. There is a small | | | plantar calcaneal spur. Redemonstration of ossicle overlying the | | | navicular which may represent an os navicularis. The ankle mortise is | | | uniform. There is no joint effusion. Mild bimalleolar soft tissue | | | swelling. IMPRESSION: No acute fracture. No radiographic | | | evidence of rheumatoid arthritis within the visualized portions of the | | | ankle. Mild bimalleolar soft tissue swelling. I have | | | personally reviewed the images and, if necessary, edited the report. I | | | agree with the report as now presented. Final signature: Atul Morales | | | MD [place] 11/21/2017 2:51 PM Preliminary: Delia Parker | | | 11/21/2017 2:33 PM Dictation initiated: Delia Parker MD | | | 11/21/2017 2:08 PM | | + + + + + | Procedure Note | + + | Service Account, Radiant Res In Interface - 11/21/2017 2:58 PM PDT EXAM: ANKLE 2 | | VIEWS RIGHT HISTORY: 3 weeks of severe right ankle pain. History of rheumatoid arthritis | | COMPARISON: Feet radiograph 11/29/2015 FINDINGS: No acute fracture. There is no erosions | | seen within the ankle. Lucent lesion within the fifth metatarsal is partially | | visualized and incompletely evaluated on ankle radiographs, likely reflecting | | intraosseous cyst formation. There is a small plantar calcaneal spur. Redemonstration of | | ossicle overlying the navicular which may represent an os navicularis. The ankle | | mortise is uniform. There is no joint effusion. Mild bimalleolar soft tissue swelling. | | IMPRESSION: No acute fracture. No radiographic evidence of rheumatoid arthritis within | | the visualized portions of the ankle. Mild bimalleolar soft tissue swelling. I have | | personally reviewed the images and, if necessary, edited the report. I agree with the | | report as now presented. Final signature: Atul Figueroa MD 11/21/2017 2:51 PM | | Preliminary: Delia Parker MD 11/21/2017 2:33 PM Dictation initiated: Delia Kumar | | MD Keith 11/21/2017 2:08 PM | |No acute fracture. No radiographic evidence of rheumatoid arthritis within the visualized p ortions of the ankle. | | | |Mild bimalleolar soft tissue swelling. | | | |I have personally reviewed the images and, if necessary, edited the report. I agree with th zain report as now presented. | | | |Final signature: Atul Figueroa MD 11/21/2017 2:51 PM | |Preliminary: Delia Parker MD 11/21/2017 2:33 PM | |Dictation initiated: Delia Parker MD 11/21/2017 2:08 PM | + + + +---------+ + + | Performing | Address | City/State/Zipcode | Phone Number | | Organization | | | | + +---------+ + + | [facility] | | | | | VOICE RECOGNITION 2 | | | | + +---------+ + + documented in this encounter Visit Diagnoses + + | Diagnosis | + + | Acute right ankle pain - Primary | + + | 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 rheumatoid arthritis (HCC) Rheumatoid arthritis | + + | Long-term use of high-risk medication | + + documented in this encounter Administered Medications + +--------+ +------+------+------+ | Medication Order | MAR | Action | Dose | Rate | Site | | | Action | Date | | | | + +--------+ +------+------+------+ | lidocaine PF (XYLOCAINE MPF) 10 | Given | 11/22/19 | 1 mL | | | | mg/mL (1 %) injection | | 18 2:45 | | | | | infiltration, ONCE, 1 dose, Agatha | | PM PDT | | | | | 11/21/17 at 1400 | | | | | | + +--------+ +------+------+------+ +---+---+ | | | +---+---+ + +-------+ +-------+---+---+ | methylPREDNISolone acetate | Given | 11/22/19 | 20 mg | | | | (DEPO-MEDROL) injection 20 mg 20 | | 18 2:45 | | | | | mg, intra-articular, ONCE, 1 | | PM PDT | | | | | dose, Agatha 11/21/17 at 1400 | | | | | | + +-------+ +-------+---+---+ +---+---+ | | | +---+---+ documented in this encounter
--- OUTSIDE RECORDS SUMMARY | ~2020-01-05 | XMS | Encounter Summary ---
Demographics + + + | Address | [address] | | | [place] [address] | + + + | Home Phone | | + + + | Preferred Language | Unknown | + + + | Marital Status | | + + + | Episcopal Affiliation | Unknown | + + + | Race | White | + + + | Ethnic Group | or | + + + Author + + + | Author | [facility] | + + + | Organization | [facility] | + + + | Address | Unknown | + + + | Phone | Unavailable | + + + Support + + +---------+ + | Name | Relationship | Address | Phone | + + +---------+ + | Brittanie Remy | ECON | Unknown | | + + +---------+ + Care Team Providers + +------+ + | Care Passenger Tire Builder Name | Role | Phone | + +------+ + | Stephanie Miller MD | PCP | | + +------+ + Encounter Details +--------+------+ + + + | Date | Type | Department | Care Team | Description | +--------+------+ + + + | 02/19/ | Lab | Laboratory at [facility] | | 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 | | 2018 | | [address] | | rheumatoid arthritis | | | | [facility] | | ([facility]); Long-term | | | | [address] | | use of high-risk | | | | [place], [place] | | medication; Vitamin | | | | [phone] | | D deficiency | | | | [phone] | | | +--------+------+ + + + Social History [...] CBC AND AUTO DIFF | Routin | 02/19/2018 | Long-term use of | Results for this | | | e | 12:26 PM | high-risk medication | procedure are in the | | | | PDT | | results section. | + +--------+ + + + | CBC, WITH | Routin | 02/19/2018 | Long-term use of | Results for this | | DIFFERENTIAL | e | 12:26 PM | high-risk medication | procedure are in the | | | | PDT | | results section. | + +--------+ + + + | VITAMIN D, | Routin | 02/19/2018 | Vitamin D | Results for this | | 25-HYDROXY, SERUM | e | 12:26 PM | deficiency | procedure are in the | | | | PDT | | results section. | + +--------+ + + + | COMPLETE METABOLIC | Routin | 02/19/2018 | Long-term use of | Results for this | | SET | e | 12:26 PM | high-risk medication | procedure are in the | | (NA,K,CL,CO2,BUN,CRE | | PDT | | results section. | | AT,GLUC,CA,AST,ALT,B | | | | | | ALEN TOTAL,ALK | | | | | | PHOS,ALB,PROT TOTAL) | | | | | + +--------+ + + + | SEDIMENTATION RATE | Routin | 02/19/2018 | 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 | Results for this | | | e | 12:26 PM | rheumatoid arthritis | procedure are in the | | | | PDT | ([facility]) | results section. | + +--------+ + + + documented in this encounter Results CBC AND AUTO DIFF (02/19/2018 12:26 PM PDT) + + + + + + | Component | Value | Ref Range | Performed | Pathologist | | | | | At | Signature | + + + + + + | WHITE CELL | 7.05 | 3.50 - 10.80 | [facility] | | | COUNT | | K/cu mm | LABORATORY | | | | | | SERVICES, | | | | | | CORE | | + + + + + + | RED CELL | 4.26 | 4.00 - 5.20 | [facility] | [...] + + + + | HEMATOCRIT | 38.3 | 36.0 - 46.0 % | [facility] | | | | | | LABORATORY | | | | | | SERVICES, | | | | | | CORE | | + + + + + + | MCV | 89.9 | 80.0 - 100.0 fL | [facility] | | | | | | LABORATORY | | | | | | SERVICES, | | | | | | CORE | | + + + + + + | MCHC | 33.2 | 32.0 - 36.0 | [facility] | | | | | g/dL | LABORATORY | | | | | | SERVICES, | | | | | | CORE | | + + + + + + | RDW SD | 44.1 | 35.1 - 46.3 fL | [facility] | | | | | | LABORATORY | | | | | | SERVICES, | | | | | | CORE | | + + + + + + | PLATELET | 228 | 150 - 400 K/cu | [facility] | | | COUNT | | mm | LABORATORY | | | | | | SERVICES, | | | | | | CORE | | + + + + + + | MPV | 11.8 | 9.7 - 12.3 fL | [facility] [...] + + + + | NEUTROPHIL | 52.5 | 50.0 - 70.0 % | [facility] | | | % | | | LABORATORY | | | | | | SERVICES, | | | | | | CORE | | + + + + + + | LYMPHOCYTE | 34.8 | 18.0 - 42.0 % | [facility] | | | % | | | LABORATORY | | | | | | SERVICES, | | | | | | CORE | | + + + + + + | MONOCYTE % | 7.9 | 3.5 - 9.0 % | [facility] | | | | | | LABORATORY | | | | | | SERVICES, | | | | | | CORE | | + + + + + + | EOS % | 4.0 (H) | 1.0 - 3.0 % | [facility] [...] + + + + | IG% | 0.1Comment: Increased | 0.0 - 1.0 % | [facility] | | | | immature granulocytes | | LABORATORY | | | | (IG) define a left | | SERVICES, | | | | shift. Immature | | CORE | | | | granulocytes (IG) are an | | | | | | automated count of | | | | | | metamyelocytes, | | | | | | myelocytes and | | | | | | promyelocytes. Bands | | | | | | are not included in the | | | | | | IG count. Bands are | | | | | | included in the | | | | | | neutrophil count. | | | | + + + + + + | NEUTROPHIL | 3.70 | 1.80 - 7.70 | [facility] | | | # | | K/cu mm | LABORATORY | | | | | | SERVICES, | | | | | | CORE | | + + + + + + | LYMPHOCYTE | 2.45 | 1.00 - 4.80 | [facility] | | | # | | K/cu mm | LABORATORY | | | | | | SERVICES, | | | | | | CORE | | + + + + + + | MONOCYTE # | 0.56 | 0.10 - 0.90 | [facility] | | | | | K/cu mm | LABORATORY | | | | | | SERVICES, | | | | | | CORE | | + + + + + + | EOS # | 0.28 | 0.00 - 0.50 | [facility] | | | | | K/cu mm | LABORATORY | | | | | | SERVICES, | | | | | | CORE | | + + + + + + | BASO # | 0.05 | 0.00 - 0.10 | [facility] | | | | | K/cu mm | LABORATORY | | | | | | SERVICES, | | | | | | CORE | | + + + + + + | IG# | 0.01 | 0.00 - 0.10 | [facility] | [...] At | + + + | New pediatric reference ranges for Lymphocyte % in effect October 17 | [facility] | | 2018. New reference ranges for MCV, MCHC, PLT, IG% and IG# | LABORATORY | | effective 09/12/2017 Increased immature granulocytes (IG) define a | SERVICES, CORE | | left shift. Immature granulocytes (IG) are an automated count of | | | metamyelocytes, myelocytes and promyelocytes. Bands are not included | | | in the IG count. Bands are included in the neutrophil count. | | + + + + + + + + | Performing | Address | City/State/Zipcode | Phone Number | | Organization | | | | + + + + + | [facility] | [address] | [place] [address] | | | SERVICES, CORE | [address] | | | + + + + + VITAMIN D, 25-HYDROXY, SERUM (02/19/2018 12:26 PM [...] | + + + + + | [facility] | [address] | [place] [address] | | | SERVICES, CORE | CHARISSE [...] | | | LABORATORY | | | [place] [facility] | | | SERVICES, | | | [...] | + + + + + | [facility] | [address] | [place] [address] | | | SERVICES, CORE | CHARISSE [...] | + + + + + | [facility] | [address] | [place] [address] | | | SERVICES, CORE | [address] [...]
--- OUTSIDE RECORDS SUMMARY | ~2020-01-05 | XMS | Encounter Summary ---
Demographics + + + | Address | [address] | | | [place] [address] | + + + | Home Phone | | + + + | Preferred Language | Unknown | + + + | Marital Status | | + + + | Muslim Affiliation | Unknown | + + + | Race | White | + + + | Ethnic Group | or | + + + Author + + + | Author | [facility] | + + + | Organization | [facility] | + + + | Address | Unknown | + + + | Phone | Unavailable | + + + Support + + +---------+ + | Name | Relationship | Address | Phone | + + +---------+ + | Brittanie Remy | ECON | Unknown | | + + +---------+ + Care Team Providers + +------+ + | Care Fan Blade Truer Name | Role | Phone | + +------+ + | Isacc Chi | PCP | | + +------+ + Encounter Details +--------+------+ + + + | Date | Type | Department | Care Team | Description | +--------+------+ + + + | 11/28/ | Lab | [facility] | | Long-term use of | | 2015 | | [address] | | high-risk medication | | | | [facility] | | | | | | [address], [address] floor | | | | | | [place], [place] | | | | | | [address] | | | | | | [phone] | | | +--------+------+ + + + [...] CBC AND AUTO DIFF | Routin | 11/29/2015 | Long-term use of | Results for this | | | e | 12:55 PM | high-risk medication | procedure are in the | | | | PDT | | results section. | + +--------+ + + + | QUANTIFERON TB GOLD, | Routin | 11/29/2015 | Long-term use of | Results for this | | BLOOD | e | 12:55 PM | high-risk medication | procedure are in the | | | | PDT | | results section. | + +--------+ + + + | CBC, WITH | Routin | 11/29/2015 | Long-term use of | Results for this | | DIFFERENTIAL | e | 12:55 PM | high-risk medication | procedure are in the | | | | PDT | | results section. | + +--------+ + + + | COMPLETE METABOLIC | Routin | 11/29/2015 | Long-term use of | Results for this | | SET | e | 12:55 PM | high-risk medication | procedure are in the | | (NA,K,CL,CO2,BUN,CRE | | PDT | | results section. | | AT,GLUC,CA,AST,ALT,B | | | | | | ALEN TOTAL,ALK | | | | | | PHOS,ALB,PROT TOTAL) | | | | | + +--------+ + + + | CYCLIC CITRUL | Routin | 11/29/2015 | Long-term use of | Results for this | | PEPTIDE AB IGG, | e | 12:55 PM | high-risk medication | procedure are in the | | SERUM | | PDT | | results section. | + +--------+ + + + | RHEUMATOID FACTOR, | Routin | 11/29/2015 | Long-term use of | Results for this | | SERUM | e | 12:55 PM | high-risk medication | procedure are in the | | | | PDT | | results section. | + +--------+ + + + | HIV AB/AG SCREENING | Routin | 11/29/2015 | Long-term use of | Results for this | | W/REFLEX TO CONFIRM | e | 12:55 PM | high-risk medication | procedure are in the | | | | PDT | | results section. | + +--------+ + + + | C-REACTIVE PROTEIN | Routin | 11/29/2015 | Long-term use of | Results for this | | | e | 12:55 PM | high-risk medication | procedure are in the | | | | PDT | | results section. | + +--------+ + + + | SEDIMENTATION RATE | Routin | 11/29/2015 | Long-term use of | Results for this | | | e | 12:55 PM | high-risk medication | procedure are in the | | | | PDT | | results section. | + +--------+ + + + | HEPATITIS B SURFACE | Routin | 11/29/2015 | Long-term use of | Results for this | | AB QUAL, SERUM | e | 12:55 PM | high-risk medication | procedure are in the | | | | PDT | | results section. | + +--------+ + + + | HEPATITIS B SURFACE | Routin | 11/29/2015 | Long-term use of | Results for this | | AG, SERUM | e | 12:55 PM | high-risk medication | procedure are in the | | | | PDT | | results section. | + +--------+ + + + | HEPATITIS B CORE AB, | Routin | 11/29/2015 | Long-term use of | Results for this | | SERUM | e | 12:55 PM | high-risk medication | procedure are in the | | | | PDT | | results section. | + +--------+ + + + | HEPATITIS C VIRUS | Routin | 11/29/2015 | Long-term use of | Results for this | | W/CONFIRMATION | e | 12:55 PM | high-risk medication | procedure are in the | | | | PDT | | results section. | + +--------+ + + + | HCG QUAL, URINE | Routin | 11/29/2015 | Long-term use of | Results for this | | | e | 12:55 PM | high-risk medication | procedure are in the | | | | PDT | | results section. | + +--------+ + + + documented in this encounter Results CBC AND AUTO DIFF (11/29/2015 12:55 PM PDT) + + + + + + | Component | Value | Ref Range | Performed | Pathologist | | | | | At | Signature | + + + + + + | WHITE CELL | 8.64 | 4.40 - 11.00 | [facility] | | | COUNT | | K/cu mm | LABORATORY | | | | | | SERVICES, | | | | | | CORE | | + + + + + + | RED CELL | 4.19 | 4.00 - 5.20 | [facility] | | | COUNT | | M/cu mm | LABORATORY | | | | | | SERVICES, | | | | | | CORE | | + + + + + + | HEMOGLOBIN | 12.3 | 12.0 - 16.0 | [facility] | | | | | g/dL | LABORATORY | | | | | | SERVICES, | | | | | | CORE | | + + + + + + | HEMATOCRIT | 37.2 | 36.0 - 46.0 % | [facility] | | | | | | LABORATORY | | | | | | SERVICES, | | | | | | CORE | | + + + + + + | MCV | 88.8 | 80.0 - 96.0 fL | [facility] | | | | | | LABORATORY | | | | | | SERVICES, | | | | | | CORE | | + + + + + + | MCHC | 33.1 | 33.0 - 35.5 | [facility] | | | | | g/dL | LABORATORY | | | | | | SERVICES, | | | | | | CORE | | + + + + + + | RDW SD | 44.2 | 35.1 - 46.3 fL | [facility] | | | | | | LABORATORY | | | | | | SERVICES, | | | | | | CORE | | + + + + + + | PLATELET | 255 | 150 - 400 K/cu | [facility] | | | COUNT | | mm | LABORATORY | | | | | | SERVICES, | | | | | | CORE | | + + + + + + | MPV | 11.9 | 9.7 - 12.3 fL | [facility] [...] + + + + | NEUTROPHIL | 64.6 | 50.0 - 70.0 % | [facility] | | | % | | | LABORATORY | | | | | | SERVICES, | | | | | | CORE | | + + + + + + | LYMPHOCYTE | 23.3 | 18.0 - 42.0 % | [facility] | | | % | | | LABORATORY | | | | | | SERVICES, | | | | | | CORE | | + + + + + + | MONOCYTE % | 8.4 | 3.5 - 9.0 % | [facility] | | | | | | LABORATORY | | | | | | SERVICES, | | | | | | CORE | | + + + + + + | EOS % | 2.7 | 1.0 - 3.0 % | [facility] [...] + + + + | IG% | 0.3Comment: Immature | 0.0 - 0.6 % | [...] + + + + | NEUTROPHIL | 5.58 | 1.80 - 7.70 | [facility] | | | # | | K/cu mm | LABORATORY | | | | | | SERVICES, | | | | | | CORE | | + + + + + + | LYMPHOCYTE | 2.01 | 1.00 - 4.80 | [facility] | | | # | | K/cu mm | LABORATORY | | | | | | SERVICES, | | | | | | CORE | | + + + + + + | MONOCYTE # | 0.73 | 0.10 - 0.90 | [facility] | | | | | K/cu mm | LABORATORY | | | | | | SERVICES, | | | | | | CORE | | + + + + + + | EOS # | 0.23 | 0.00 - 0.50 | [facility] | | | | | K/cu mm | LABORATORY | | | | | | SERVICES, | | | | | | CORE | | + + + + + + | BASO # | 0.06 | 0.00 - 0.10 | [facility] | | | | | K/cu mm | LABORATORY | | | | | | SERVICES, | | | | | | CORE | | + + + + + + | IG# | 0.03 | 0.00 - 0.03 | [facility] | [...] Performed At | + + + | Immature Granulocytes (IG) include metamyelocytes, myelocytes | [facility] | | and promyelocytes. Bands are not included in the IG count. Bands are | LABORATORY | | included in the neutrophil count. | SERVICES, CORE | + + + + + + + + | Performing | Address | City/State/Zipcode | Phone Number | | Organization | | | | + + + + + | [facility] | [address] | [place] [address] | | | SERVICES, CORE | [address] | | | + + + + + HCG QUAL, URINE (11/29/2015 12:55 PM PDT) + + + + + + | Component | Value | Ref Range | Performed | Pathologist | | | | | At | Signature | + + + + + + | HCG QUAL | NegativeComment: HCG= | mIU/mL | [facility] | | | URINE | <20mIU/mL. | | LABORATORY | | | | | | SERVICES, | | | | | | CORE | | + + + + + + + + | Specimen | + + | Urine - Urine | | (substance) | + + + + + + + | Performing | Address | City/State/Zipcode | Phone Number | | Organization | | | | + + + + + | [facility] | [address] | [place] [address] | | | SERVICES, CORE | [address] | | | + + + + + RHEUMATOID FACTOR, SERUM (11/29/2015 12:55 PM PDT) + +--------+ + + + | Component | Value | Ref Range | Performed | Pathologist | | | | | At | Signature | + +--------+ + + + | RHEUMATOID | 52 (H) | <=14 IU/mL | [facility] | | | FACTOR | | | [facility] - | | | | | | [place] | | + +--------+ + + + + + | Specimen | + + | Blood - Blood | + + + + + + + | Performing | Address | City/State/Zipcode | Phone Number | | Organization | | | | + + + + + | [facility] | [address] | [place] [address] | | | [facility] | | | | + + + + + CYCLIC CITRUL PEPTIDE AB IGG, SERUM (11/29/2015 12:55 PM PDT) + + + + + + | Component | Value | Ref Range | Performed | Pathologist | | | | | At | Signature | + + + + + + | CYCLIC | 186 (H)Comment: | 0 - 19 Units | [facility] | | | CITRUL | INTERPRETIVE | | REG UNIV | | | PEPTIDE AB, | INFORMATION: Cyclic | | PTH - [facility] | | | IGG | Citrullinated Peptide | | | | | | Antibody, IgG 19 | | | | | | Units or less | | | | | | ................... | | | | | | Negative 20-39 Units | | | | | | ........................ | | | | | | Weak Positive 40-59 | | | | | | Units | | | | | | ........................ | | | | | | Moderate Positive 60 | | | | | | Units or greater | | | | | | ................ Strong | | | | | | Positive Anti-cyclic | | | | | | citrullinated peptide | | | | | | (anti-CCP), IgG | | | | | | antibodies are present | | | | | | in about 69-83 percent | | | | | | of patients with | | | | | | rheumatoid arthritis | | | | | | (RA) and have | | | | | | specificities of 93-95 | | | | | | percent. These | | | | | | autoantibodies may be | | | | | | present in the | | | | | | preclinical phase of | | | | | | disease, are associated | | | | | | with future RA | | | | | | development, and may | | | | | | predict radiographic | | | | | | joint destruction. | | | | | | Patients with weak | | | | | | positive results should | | | | | | be monitored and testing | | | | | | repeated.Performed by | | | | | | [facility],[address] | | | | | | [place] | | | | | | [address] | | | | | | [phone] | | | | | | Shan trinh, | | | | | | , Lab. Director | | | | + + + + + + + + | Specimen | + + | Blood - Blood | + + + + + + + | Performing | Address | City/State/Zipcode | Phone Number | | Organization | | | | + + + + + | [facility] | [address] | [place], [place] | | | UNIV PTH - INT[facility] | | [id number] | | + + + + + HIV-1,2 AB/HIV-1 P24 AG SCRN, SERUM (11/29/2015 12:55 PM PDT) + + + + + + | Component | Value | Ref Range | Performed | Pathologist | | | | | At | Signature | + + + + + + | HIV-1,2 | Negative | Negative | [facility] | | | AB/HIV-1 | | | LABORATORY | | | P24 AG | | | SERVICES, | | | SCREEN | | | SPECIAL IMM | | | | | | + [place] | | + + + + + + + + | Specimen | + + | Blood - Blood | | (substance) | + + + + + | Narrative | Performed At | + + + | HIV-1 p24 Ag and HIV-1,2 Ab not detected. Test modified from | [facility] | | original mercury recoverer's approved specifications. The performance | LABORATORY | | of the SHOE SALESPERSON HIV Combo test, with or without confirmation, was not | SERVICES, | | tested in pediatric patients less than 2 years of age. [facility] | SPECIAL IMM + | | guidelines recommend virologic assays (i.e. HIV 1 VIRAL LOAD) that | [facility] | | directly detect HIV for diagnosis of HIV infection in infants younger | | | than 2 years. | | + + + + + + + + | Performing | Address | City/State/Zipcode | Phone Number | | Organization | | | | + + + + + | [facility] | [address] | [place] [address] | | | SERVICES, SPECIAL | [address] | | | | IMM + [place] | | | | + + + + + QUANTIFERON TB GOLD, BLOOD (11/29/2015 12:55 PM PDT) + + + + + + | Component | Value | Ref Range | Performed | Pathologist | | | | | At | Signature | + + + + + + | QUANTIFERON | Negative | Negative | [facility] | | | TB GOLD | | | AIRPORT - | | | | | | [place] | | + + + + + + | NIL | 0.085 | IU/mL | [facility] | | | | | | [facility] - | | | | | | [place] | | + + + + + + | TB AG | 0.098 | IU/mL | [facility] | | | | | | [facility] - | | | | | | [place] | | + + + + + + | MITOGEN | >=10 | IU/mL | [facility] | | | | | | [facility] - | | | | | | [place] | | + + + + + + | TB AG-NIL | 0.013 | IU/mL | [facility] | | | | | | [facility] - | | | | | | [place] | | + + + + + + | MITOGEN-NIL | 48.136 | IU/mL | [facility] | | | | | | [facility] - | | | | | | [place] | | + + + + + + + + | Specimen | + + | Blood - Blood | + + + + + + + | Performing | Address | City/State/Zipcode | Phone Number | | Organization | | | | + + + + + | [facility] | [address] | [place] [address] | | | [place] | | | | + + + + + HEPATITIS C AB W/CONFIRMATION REFLEX PCR (11/29/2015 12:55 PM PDT) + + + + + + | Component | Value | Ref Range | Performed | Pathologist | | | | | At | Signature | + + + + + + | HEPATITIS C | Negative | Negative | [facility] | | | AB | | | [facility] - | | | | | | [place] | | + + + + + + + + | Specimen | + + | Blood - Blood | + + + + + + + | Performing | Address | City/State/Zipcode | Phone Number | | Organization | | | | + + + + + | [facility] | [address] | [place] [address] | | | [place] | | | | + + + + + HEPATITIS B SURFACE AG, SERUM (11/29/2015 12:55 PM PDT) + + + + + + | Component | Value | Ref Range | Performed | Pathologist | | | | | At | Signature | + + + + + + | HEPATITIS B | Negative | Negative | [facility] | | | SURFACE | | | [facility] - | | | AG, SERUM | | | [place] | | + + + + + + + + | Specimen | + + | Blood - Blood | + + + + + + + | Performing | Address | City/State/Zipcode | Phone Number | | Organization | | | | + + + + + | [facility] | [address] | [place] [address] | | | [place] | | | | + + + + + HEPATITIS B SURFACE AB QUAL, SERUM (11/29/2015 12:55 PM PDT) + + + + + + | Component | Value | Ref Range | Performed | Pathologist | | | | | At | Signature | + + + + + + | HEP B | Non Reactive | Non Reactive | [facility] | | | SURFACE AB | | | [facility] - | | | QUAL, SERUM | | | [place] | | + + + + + + + + | Specimen | + + | Blood - Blood | + + + + + + + | Performing | Address | City/State/Zipcode | Phone Number | | Organization | | | | + + + + + | [facility] | [address] | [place] [address] | | | [place] | | | | + + + + + HEPATITIS B CORE AB, SERUM (11/29/2015 12:55 PM PDT) + + + + + + | Component | Value | Ref Range | Performed | Pathologist | | | | | At | Signature | + + + + + + | HEPATITIS B | Negative | Negative | [facility] | | | CORE AB, | | | AIRPORT - | | | SERUM | | | [place] | | + + + + + + + + | Specimen | + + | Blood - Blood | + + + + + + + | Performing | Address | City/State/Zipcode | Phone Number | | Organization | | | | + + + + + | [facility] - | [address] | [place] [address] | | | [place] | | | | + + + + + COMPLETE METABOLIC SET (NA,K,CL,CO2,BUN,CREAT,GLUC,CA,AST,ALT,BILI TOTAL,ALK PHOS,ALB,PROT TOTAL) (11/29/2015 12:55 PM PDT) + + + + + + | Component | Value | Ref Range | Performed | Pathologist | | | | | At | Signature | + + + + + + | GLUCOSE, | 91 | 60 - 99 mg/dL | [facility] [...] + + + + | CREATININE | 0.56 (L) | 0.60 - 1.10 | [facility] | | | PLASMA | | mg/dL | LABORATORY | | | (LAB) | | | SERVICES, | | | | | | CORE | | + + + + + + | EGFR | >60 | >60 mL/min | [facility] | | | - | | | LABORATORY | | | MONE[place]ASQUE | | | SERVICES, | | | | | | CORE | | + + + + + + | EGFR NON | >60 | >60 mL/min | [facility] | | | -GUERO | | | LABORATORY | | | RICAN | | | SERVICES, | | | | | | CORE | | + + + + + + | SODIUM, | 137 | 136 - 145 | [facility] | | | PLASMA | | mmol/L | LABORATORY | | | (LAB) | | | SERVICES, | | | | | | CORE | | + + + + + + | POTASSIUM, | 3.8 | 3.4 - 5.0 | [facility] | | | PLASMA | | mmol/L | LABORATORY | | | (LAB) | | | SERVICES, | | | | | | CORE | | + + + + + + | CHLORIDE, | 102 | 97 - 108 mmol/L | [facility] | | | PLASMA | | | LABORATORY | | | (LAB) | | | SERVICES, | | | | | | CORE | | + + + + + + | TOTAL CO2, | 26 | 21 - 32 mmol/L | [facility] | | | PLASMA | | | LABORATORY | | | (LAB) | | | SERVICES, | | | | | | CORE | | + + + + + + | CALCIUM, | 9.3 | 8.6 - 10.2 | [facility] | | | PLASMA | | mg/dL | LABORATORY | | | (LAB) | | | SERVICES, | | | | | | CORE | | + + + + + + | CALCIUM(ALB | 9.3 | 8.6 - 10.2 | [facility] | | | CORRECTED) | | mg/dL | LABORATORY | | | | | | SERVICES, | | | | | | CORE | | + + + + + + | BILIRUBIN | 0.6 | 0.3 - 1.2 mg/dL | [facility] | | | TOTAL | | | LABORATORY | | | | | | SERVICES, | | | | | | CORE | | + + + + + + | TOTAL | 8.3 (H) | 6.4 - 8.2 g/dL | [facility] | | | PROTEIN, | | | LABORATORY | | | PLASMA | | | SERVICES, | | | (LAB) | | | CORE | | + + + + + + | ALBUMIN, | 4.0 | 3.5 - 4.7 g/dL | [facility] | | | PLASMA | | | LABORATORY | | | (LAB) | | | SERVICES, | | | | | | CORE | | + + + + + + | ALK PHOS | 109 (H) | 42 - 98 U/L | [facility] | | | | | | LABORATORY | | | | | | SERVICES, | | | | | | CORE | | + + + + + + | AST(SGOT) | 30 | <=41 U/L | [facility] | | | | | | LABORATORY | | | | | | SERVICES, | | | | | | CORE | | + + + + + + | ALT (SGPT) | 57 | <=60 U/L | [facility] | | | | | | LABORATORY | | | | | | SERVICES, | | | | | | CORE | | + + + + + + | ANION GAP | 9 | mmol/L | [facility] | | | | | | LABORATORY | | | | | | SERVICES, | | | | | | CORE | | + + + + + + | ANION | 9 | 4 - 11 mmol/L | [facility] [...] [facility] | [address] | [place] [address] | | | SERVICES, CORE | [address] | | | + + + + + C-REACTIVE PROTEIN (11/29/2015 12:55 PM PDT) + + + + + + | Component | Value | Ref Range | Performed | Pathologist | | | | | At | Signature | + + + + + + | C-REACTIVE | 14.0 (H) | <10.0 mg/L | [facility] | | [...] [facility] | [address] | [place] [address] | | | SERVICES, CORE | [address] | | | + + + + + SEDIMENTATION RATE (11/29/2015 12:55 PM PDT) + +--------+ + + + | Component | Value | Ref Range | Performed | Pathologist | | | | | At | Signature | + +--------+ + + + | SEDIMENTATI | 29 (H) | 0 - 20 mm/hr | [facility] | | | ON RATE | | | LABORATORY | | | | | | SERVICES, | | | | | | CORE | | + +--------+ + + + + + | Specimen | + + | Blood - Blood | | (substance) | + + + + + + + | Performing | Address | City/State/Zipcode | Phone Number | | Organization | | | | + + + + + | [facility] | [address] | [place] [address] | | | SERVICES, CORE | [address] | | | + + + + + documented in this encounter Visit Diagnoses + + | Diagnosis | + + | Long-term use of high-risk medication | + + documented in this encounter"
--- OUTSIDE RECORDS SUMMARY | ~2020-01-05 | XMS | Encounter Summary ---
Demographics + + + | Address | [address] | | | [place] [address] | + + + | Home Phone | | + + + | Preferred Language | Unknown | + + + | Marital Status | | + + + | Roman Catholic Affiliation | Unknown | + + + | Race | White | + + + | Ethnic Group | or | + + + Author + + + | Author | [facility] | + + + | Organization | [facility] | + + + | Address | Unknown | + + + | Phone | Unavailable | + + + Support + + +---------+ + | Name | Relationship | Address | Phone | + + +---------+ + | Brittanie Remy | ECON | Unknown | | + + +---------+ + Care Team Providers + +------+ + | Care Carpentry Teacher Name | Role | Phone | + +------+ + | Stephanie Miller MD | PCP | | + +------+ + Encounter Details +--------+------+ + + + | Date | Type | Department | Care Team | Description | +--------+------+ + + + | 11/21/ | Lab | [facility] | | Long-term use of | | 2017 | | [address] | | high-risk | | | | [facility] | | medication; | | | | Pavilion, 3rd floor | | 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 | | | | [place], [place] | | rheumatoid arthritis | | | | [address] | | ([facility]) | | | | [phone] | | | +--------+------+ + + + [...] CBC AND AUTO DIFF | Routin | 11/21/2017 | Long-term use of | Results for this | | | e | 2:02 PM | high-risk medication | procedure are in the | | | | PDT | | results section. | + +--------+ + + + | CBC, WITH | Routin | 11/21/2017 | Long-term use of | Results for this | | DIFFERENTIAL | e | 2:02 PM | high-risk medication | procedure are in the | | | | PDT | | results section. | + +--------+ + + + | VITAMIN D, | Routin | 11/21/2017 | 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 | Results for this | | 25-HYDROXY, SERUM | e | 2:02 PM | rheumatoid arthritis | procedure are in the | | | | PDT | (HCC) | results section. | + +--------+ + + + | COMPLETE METABOLIC | Routin | 11/21/2017 | Long-term use of | Results for this | | SET | e | 2:02 PM | high-risk medication | procedure are in the | | (NA,K,CL,CO2,BUN,CRE | | PDT | | results section. | | AT,GLUC,CA,AST,ALT,B | | | | | | ALEN TOTAL,ALK | | | | | | PHOS,ALB,PROT TOTAL) | | | | | + +--------+ + + + | SEDIMENTATION RATE | Routin | 11/21/2017 | 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 | Results for this | | | e | 2:02 PM | rheumatoid arthritis | procedure are in the | | | | PDT | ([facility]) | results section. | + +--------+ + + + documented in this encounter Results CBC AND AUTO DIFF (11/21/2017 2:02 PM PDT) + + + + + + | Component | Value | Ref Range | Performed | Pathologist | | | | | At | Signature | + + + + + + | WHITE CELL | 6.38 | 3.50 - 10.80 | [facility] | | | COUNT | | K/cu mm | LABORATORY | | | | | | SERVICES, | | | | | | CORE | | + + + + + + | RED CELL | 4.23 | 4.00 - 5.20 | [facility] | | | COUNT | | M/cu mm | LABORATORY | | | | | | SERVICES, | | | | | | CORE | | + + + + + + | HEMOGLOBIN | 12.8 | 12.0 - 16.0 | [facility] | | | | | g/dL | LABORATORY | | | | | | SERVICES, | | | | | | CORE | | + + + + + + | HEMATOCRIT | 37.7 | 36.0 - 46.0 % | [facility] | | | | | | LABORATORY | | | | | | SERVICES, | | | | | | CORE | | + + + + + + | MCV | 89.1 | 80.0 - 100.0 fL | [facility] | | | | | | LABORATORY | | | | | | SERVICES, | | | | | | CORE | | + + + + + + | MCHC | 34.0 | 32.0 - 36.0 | [facility] | | | | | g/dL | LABORATORY | | | | | | SERVICES, | | | | | | CORE | | + + + + + + | RDW SD | 42.8 | 35.1 - 46.3 fL | [facility] | | | | | | LABORATORY | | | | | | SERVICES, | | | | | | CORE | | + + + + + + | PLATELET | 215 | 150 - 400 K/cu | [facility] | | | COUNT | | mm | LABORATORY | | | | | | SERVICES, | | | | | | CORE | | + + + + + + | MPV | 11.5 | 9.7 - 12.3 fL | [facility] [...] + + + + | NEUTROPHIL | 49.3 (L) | 50.0 - 70.0 % | [facility] | | | % | | | LABORATORY | | | | | | SERVICES, | | | | | | CORE | | + + + + + + | LYMPHOCYTE | 39.7 | 18.0 - 42.0 % | [facility] | | | % | | | LABORATORY | | | | | | SERVICES, | | | | | | CORE | | + + + + + + | MONOCYTE % | 7.7 | 3.5 - 9.0 % | [facility] | | | | | | LABORATORY | | | | | | SERVICES, | | | | | | CORE | | + + + + + + | EOS % | 2.5 | 1.0 - 3.0 % | [facility] | | | | | | LABORATORY | | | | | | SERVICES, | | | | | | CORE | | + + + + + + | BASO % | 0.5 | 0.0 - 2.0 % | [facility] | | | | | | LABORATORY | | | | | | SERVICES, | | | | | | CORE | | + + + + + + | IG% | 0.3Comment: Increased | 0.0 - 1.0 % | [...] + + + + | NEUTROPHIL | 3.15 | 1.80 - 7.70 | [facility] | | | # | | K/cu mm | LABORATORY | | | | | | SERVICES, | | | | | | CORE | | + + + + + + | LYMPHOCYTE | 2.53 | 1.00 - 4.80 | [facility] | | | # | | K/cu mm | LABORATORY | | | | | | SERVICES, | | | | | | CORE | | + + + + + + | MONOCYTE # | 0.49 | 0.10 - 0.90 | [facility] | | | | | K/cu mm | LABORATORY | | | | | | SERVICES, | | | | | | CORE | | + + + + + + | EOS # | 0.16 | 0.00 - 0.50 | [facility] | | | | | K/cu mm | LABORATORY | | | | | | SERVICES, | | | | | | CORE | | + + + + + + | BASO # | 0.03 | 0.00 - 0.10 | [facility] | | | | | K/cu mm | LABORATORY | | | | | | SERVICES, | | | | | | CORE | | + + + + + + | IG# | 0.02 | 0.00 - 0.10 | [facility] | [...] [facility] | [address] | [place] [address] | | | SERVICES, CORE | [address] | | | + + + + + VITAMIN D, 25-HYDROXY, SERUM (11/21/2017 2:02 PM [...] | + + + + + | [facility] | [address] | [place] [address] | | | SERVICES, CORE | CHARISSE [...] | | | LABORATORY | | | [facility] | | | SERVICES, | | | [...] | + + + + + | [facility] | [address] | [place] [address] | | | SERVICES, CORE | [address] [...] [facility] | [address] | [place] [address] | | | SERVICES, CORE | [address] | | | + + + + + documented in this encounter Visit Diagnoses + + | Diagnosis | + + | Long-term use of high-risk medication | + + | 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 rheumatoid arthritis (HCC) Rheumatoid arthritis | + + documented in this encounter"
--- OUTSIDE RECORDS SUMMARY | ~2020-01-05 | XMS | Encounter Summary ---
Demographics + + + | Address | [address] | | | [place] [address] | + + + | Home Phone | | + + + | Preferred Language | Unknown | + + + | Marital Status | | + + + | Amish Affiliation | Unknown | + + + | Race | White | + + + | Ethnic Group | or | + + + Author + + + | Author | [facility] | + + + | Organization | [facility] | + + + | Address | Unknown | + + + | Phone | Unavailable | + + + Support + + +---------+ + | Name | Relationship | Address | Phone | + + +---------+ + | Brittanie Remy | ECON | Unknown | | + + +---------+ + Care Team Providers + +------+ + | Care Photocomposing Keyboard Operator Name | Role | Phone | + +------+ + | Stephanie Miller MD | PCP | | + +------+ + Encounter Details +--------+ + + + + | Date | Type | Department | Care Team | Description | +--------+ + + + + | 05/29/ | Pharmacy | [facility] | | | | 2019 | Visit | [address] | | | | | | [facility] [address] | | | | | | [place] [address] | | | | | | [phone] | | | +--------+ + + + [...]
--- OUTSIDE RECORDS SUMMARY | ~2020-01-05 | XMS | Encounter Summary ---
Demographics + + + | Address | [address] | | | [place] [address] | + + + | Home Phone | | + + + | Preferred Language | Unknown | + + + | Marital Status | | + + + | Moravian Affiliation | Unknown | + + + | Race | White | + + + | Ethnic Group | or | + + + Author + + + | Author | [facility] | + + + | Organization | [facility] | + + + | Address | Unknown | + + + | Phone | Unavailable | + + + Support + + +---------+ + | Name | Relationship | Address | Phone | + + +---------+ + | Brittanie Remy | ECON | Unknown | | + + +---------+ + Care Team Providers + +------+ + | Care Social And Human Services Assistant Name | Role | Phone | + +------+ + | Isacc Chi | PCP | | + +------+ + Encounter Details +--------+------+ + + + | Date | Type | Department | Care Team | Description | +--------+------+ + + + | 08/15/ | Lab | Laboratory at [facility] | | Long-term use of | | 2017 | | [address] | | high-risk | | | | [facility] | | medication; | | | | [address], 3rd floor | | 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 | | | | [place], [place] | | rheumatoid arthritis | | | | [phone] | | ([facility]); Vitamin D | | | | [phone] | | deficiency | +--------+------+ + + [...] CBC AND AUTO DIFF | Routin | 08/15/2017 | Long-term use of | Results for this | | | e | 2:18 PM | high-risk medication | procedure are in the | | | | PDT | | results section. | + +--------+ + + + | CBC, WITH | Routin | 08/15/2017 | Long-term use of | Results for this | | DIFFERENTIAL | e | 2:18 PM | high-risk medication | procedure are in the | | | | PDT | | results section. | + +--------+ + + + | VITAMIN D, | Routin | 08/15/2017 | Vitamin D | Results for this | | 25-HYDROXY, SERUM | e | 2:18 PM | deficiency | procedure are in the | | | | PDT | | results section. | + +--------+ + + + | COMPLETE METABOLIC | Routin | 08/15/2017 | Long-term use of | Results for this | | SET | e | 2:18 PM | high-risk medication | procedure are in the | | (NA,K,CL,CO2,BUN,CRE | | PDT | | results section. | | AT,GLUC,CA,AST,ALT,B | | | | | | ALEN TOTAL,ALK | | | | | | PHOS,ALB,PROT TOTAL) | | | | | + +--------+ + + + | SEDIMENTATION RATE | Routin | 08/15/2017 | 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 | Results for this | | | e | 2:18 PM | rheumatoid arthritis | procedure are in the | | | | PDT | ([facility]) | results section. | + +--------+ + + + documented in this encounter Results CBC AND AUTO DIFF (08/15/2017 2:18 PM PDT) + + + + + + | Component | Value | Ref Range | Performed | Pathologist | | | | | At | Signature | + + + + + + | WHITE CELL | 11.23 (H) | 3.50 - 10.80 | [facility] | | | COUNT | | K/cu mm | LABORATORY | | | | | | SERVICES, | | | | | | CORE | | + + + + + + | RED CELL | 4.41 | 4.00 - 5.20 | [facility] | | | COUNT | | M/cu mm | LABORATORY | | | | | | SERVICES, | | | | | | CORE | | + + + + + + | HEMOGLOBIN | 12.9 | 12.0 - 16.0 | [facility] | | | | | g/dL | LABORATORY | | | | | | SERVICES, | | | | | | CORE | | + + + + + + | HEMATOCRIT | 39.0 | 36.0 - 46.0 % | [facility] | | | | | | LABORATORY | | | | | | SERVICES, | | | | | | CORE | | + + + + + + | MCV | 88.4 | 80.0 - 96.0 fL | [facility] [...] + + + | RDW SD | 43.1 | 35.1 - 46.3 fL | [facility] | | | | | | LABORATORY | | | | | | SERVICES, | | | | | | CORE | | + + + + + + | PLATELET | 224 | 150 - 400 K/cu | [facility] [...] + + + + | NEUTROPHIL | 75.6 (H) | 50.0 - 70.0 % | [facility] | | | % | | | LABORATORY | | | | | | SERVICES, | | | | | | CORE | | + + + + + + | LYMPHOCYTE | 15.9 (L) | 18.0 - 42.0 % | [facility] | | | % | | | LABORATORY | | | | | | SERVICES, | | | | | | CORE | | + + + + + + | MONOCYTE % | 6.1 | 3.5 - 9.0 % | [facility] | | | | | | LABORATORY | | | | | | SERVICES, | | | | | | CORE | | + + + + + + | EOS % | 1.4 | 1.0 - 3.0 % | [facility] | | | | | | LABORATORY | | | | | | SERVICES, | | | | | | CORE | | + + + + + + | BASO % | 0.6 | 0.0 - 2.0 % | [facility] | | | | | | LABORATORY | | | | | | SERVICES, | | | | | | CORE | | + + + + + + | IG% | 0.4Comment: Increased | 0.0 - 1.0 % | [...] + + + + | NEUTROPHIL | 8.48 (H) | 1.80 - 7.70 | [facility] | | | # | | K/cu mm | LABORATORY | | | | | | SERVICES, | | | | | | CORE | | + + + + + + | LYMPHOCYTE | 1.78 | 1.00 - 4.80 | [facility] | | | # | | K/cu mm | LABORATORY | | | | | | SERVICES, | | | | | | CORE | | + + + + + + | MONOCYTE # | 0.69 | 0.10 - 0.90 | [facility] | [...] + + + | BASO # | 0.07 | 0.00 - 0.10 | [facility] | | | | | K/cu mm | LABORATORY | | | | | | SERVICES, | | | | | | CORE | | + + + + + + | IG# | 0.05 | 0.00 - 0.10 | [...] At | + + + | New reference ranges for IG% and IG# effective 2017. | [facility] | | Increased immature granulocytes (IG) define a left shift. Immature | LABORATORY | | granulocytes (IG) are an automated count of metamyelocytes, myelocytes | SERVICES, CORE | | and promyelocytes. Bands are not included in the IG count. Bands are | | | included in the neutrophil count. | | + + + + + + + + | Performing | Address | City/State/Zipcode | Phone Number | | Organization | | | | + + + + + | [facility] | [address] | [place] [address] | | | SERVICES, CORE | [address] | | | + + + + + VITAMIN D, 25-HYDROXY, SERUM (08/15/2017 2:18 PM PDT) + + + + + + | Component | Value | Ref Range | Performed | Pathologist | | | | | At | Signature | + + + + + + | VITAMIN D | <4.2 (L) | 30 - 80 ng/mL | [...] | + + + + + | [facility] | [address] | [place] [address] | | | SERVICES, CORE | [address] | | | + + + + + COMPLETE METABOLIC SET (NA,K,CL,CO2,BUN,CREAT,GLUC,CA,AST,ALT,BILI TOTAL,ALK PHOS,ALB,PROT TOTAL) (08/15/2017 2:18 PM PDT) + + + + + + | Component | Value | Ref Range | Performed | Pathologist | | | | | At | Signature | + + + + + + | GLUCOSE, | 240 (H) | 70 - 99 mg/dL | [...] + + + + | CREATININE | 0.41 (L) | 0.60 - 1.10 | [facility] | | | PLASMA | | mg/dL | LABORATORY | | | (LAB) | | | SERVICES, | | | | | | CORE | | + + + + + + | EGFR | >60 | >60 mL/min | [facility] | | | - | | | LABORATORY | | | EMIRATI | | | SERVICES, | | | | | | CORE | | + + + + + + | EGFR NON | >60 | >60 mL/min | [facility] | | | -GUERO | | | LABORATORY | | | RICAN | | | SERVICES, | | | | | | CORE | | + + + + + + | SODIUM, | 135 (L) | 136 - 145 | [facility] | | | PLASMA | | mmol/L | LABORATORY | | | (LAB) | | | SERVICES, | | | | | | CORE | | + + + + + + | POTASSIUM, | 3.5 | 3.4 - 5.0 | [facility] | | | PLASMA | | mmol/L | LABORATORY | | | (LAB) | | | SERVICES, | | | | | | CORE | | + + + + + + | CHLORIDE, | 101 | 97 - 108 mmol/L | [facility] | | | PLASMA | | | LABORATORY | | | (LAB) | | | SERVICES, | | | | | | CORE | | + + + + + + | TOTAL CO2, | 27 | 21 - 32 mmol/L | [facility] | | | PLASMA | | | LABORATORY | | | (LAB) | | | SERVICES, | | | | | | CORE | | + + + + + + | CALCIUM, | 9.4 | 8.6 - 10.2 | [facility] | | | PLASMA | | mg/dL | LABORATORY | | | (LAB) | | | SERVICES, | | | | | | CORE | | + + + + + + | CALCIUM(ALB | 9.6 | 8.6 - 10.2 | [facility] | | | CORRECTED) | | mg/dL | LABORATORY | | | | | | SERVICES, | | | | | | CORE | | + + + + + + | BILIRUBIN | 0.4 | 0.3 - 1.2 mg/dL | [facility] | | | TOTAL | | | LABORATORY | | | | | | SERVICES, | | | | | | CORE | | + + + + + + | TOTAL | 8.2 | 6.4 - 8.2 g/dL | [facility] | | | PROTEIN, | | | LABORATORY | | | PLASMA | | | SERVICES, | | | (LAB) | | | CORE | | + + + + + + | ALBUMIN, | 3.7 | 3.5 - 4.7 g/dL | [facility] | | | PLASMA | | | LABORATORY | | | (LAB) | | | SERVICES, | | | | | | CORE | | + + + + + + | ALK PHOS | 156 (H) | 42 - 98 U/L | [facility] | | | | | | LABORATORY | | | | | | SERVICES, | | | | | | CORE | | + + + + + + | AST(SGOT) | 83 (H) | <=41 U/L | [facility] | | | | | | LABORATORY | | | | | | SERVICES, | | | | | | CORE | | + + + + + + | ALT (SGPT) | 117 (H) | <=60 U/L | [facility] | | | | | | LABORATORY | | | | | | SERVICES, | | | | | | CORE | | + + + + + + | ANION GAP | 7 | 4 - 11 mmol/L [...] Performed At | + + + | Adult glucose reference range change effective 7-12-17. GFR is | [facility] | | estimated using the MDRD equation recommended by the National Kidney | LABORATORY | | Disease Education Program. Estimated GFR Interpretive Information: | SERVICES, CORE | | <60 mL/min/1.73 sq m Chronic Kidney Disease | | | <15 mL/min/1.73 sq m Kidney Failure Estimated | | | GFR greater that 60 mL/min/1.73 sq m is of limited clinical value. | | | The MDRD equation is not valid in the following situations: - | | | Patients under 18 years of age - Severe malnutrition or obesity - | | | Vegetarian diet - Rapidly changing kidney function | | + + + + + + + + | Performing | Address | City/State/Zipcode | Phone Number | | Organization | | | | + + + + + | [facility] | [address] | [place] [address] | | | SERVICES, CORE | [address] | | | + + + + + SEDIMENTATION RATE (08/15/2017 2:18 PM PDT) + +--------+ + + + [...] | + + + + + | [facility] | [address] | [place] [address] | | | SERVICES, CORE | [address] [...]
--- OUTSIDE RECORDS SUMMARY | ~2020-01-05 | XMS | Encounter Summary ---
Demographics + + + | Address | [address] | | | [place] [address] | + + + | Home Phone | | + + + | Preferred Language | Unknown | + + + | Marital Status | | + + + | Zoroastrianism Affiliation | Unknown | + + + | Race | White | + + + | Ethnic Group | or | + + + Author + + + | Author | [facility] | + + + | Organization | [facility] | + + + | Address | Unknown | + + + | Phone | Unavailable | + + + Support + + +---------+ + | Name | Relationship | Address | Phone | + + +---------+ + | [place]anie [place]y | ECON | Unknown | | + + +---------+ + Care Team Providers + +------+ + | Care Line Dancer Name | Role | Phone | + +------+ + | Isacc Chi | PCP | | + +------+ + Encounter Details +--------+------+ + + + | Date | Type | Department | Care Team | Description | +--------+------+ + + + | 09/27/ | Lab | Laboratory at [facility] | | 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 | | 2017 | | [address] | | rheumatoid arthritis | | | | [facility] | | ([facility]); Long-term | | | | [address], [address] floor | | use of high-risk | | | | [place], [place] | | medication; Vitamin | | | | [phone] | | D deficiency | | | | [phone] | | | +--------+------+ + + + [...] | + +--------+ + + + | RBC MORPHOLOGY | Routin | 09/27/2016 | Long-term use of | Results for this | | | e | 2:01 PM | high-risk medication | procedure are in the | | | | PDT | | results section. | + +--------+ + + + | CBC AND AUTO DIFF | Routin | 09/27/2016 | Long-term use of | Results for this | | | e | 2:01 PM | high-risk medication | procedure are in the | | | | PDT | | results section. | + +--------+ + + + | MANUAL DIFFERENTIAL | Routin | 09/27/2016 | Long-term use of | Results for this | | | e | 2:01 PM | high-risk medication | procedure are in the | | | | PDT | | results section. | + +--------+ + + + | CBC, WITH | Routin | 09/27/2016 | Long-term use of | Results for this | | DIFFERENTIAL | e | 2:01 PM | high-risk medication | procedure are in the | | | | PDT | | results section. | + +--------+ + + + | VITAMIN D, | Routin | 09/27/2016 | Vitamin D | Results for this | | 25-HYDROXY, SERUM | e | 2:01 PM | deficiency | procedure are in the | | | | PDT | | results section. | + +--------+ + + + | COMPLETE METABOLIC | Routin | 09/27/2016 | Long-term use of | Results for this | | SET | e | 2:01 PM | high-risk medication | procedure are in the | | (NA,K,CL,CO2,BUN,CRE | | PDT | | results section. | | AT,GLUC,CA,AST,ALT,B | | | | | | ALEN TOTAL,ALK | | | | | | PHOS,ALB,PROT TOTAL) | | | | | + +--------+ + + + | SEDIMENTATION RATE | Routin | 09/27/2016 | 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 | Results for this | | | e | 2:01 PM | rheumatoid arthritis | procedure are in the | | | | PDT | (HCC) | results section. | + +--------+ + + + documented in this encounter Results RBC MORPHOLOGY (09/27/2016 2:01 PM PDT) + + + + + + | Component | Value | Ref Range | Performed | Pathologist | | | | | At | Signature | + + + + + + | ANISOCYTOSI | 1+(10-25cells/HPF) | | [facility] | | | S | | | LABORATORY | | | [...] [facility] | [address] | [place] [address] | | | SERVICES, CORE | [address] | | | + + + + + MANUAL DIFFERENTIAL (09/27/2016 2:01 PM PDT) + + + + + + | Component | Value | Ref Range | Performed | Pathologist | | | | | At | Signature | + + + + + + | NEUTROPHIL | 53.1 | 50.0 - 70.0 % | [facility] | | | % | | | LABORATORY | | | | | | SERVICES, | | | | | | CORE | | + + + + + + | LYMPHOCYTE | 38.0 | 18.0 - 42.0 % | [facility] | | | % | | | LABORATORY | | | | | | SERVICES, | | | | | | CORE | | + + + + + + | MONOCYTE % | 1.8 (L) | 3.5 - 9.0 % | [facility] | | | | | | LABORATORY | | | | | | SERVICES, | | | | | | CORE | | + + + + + + | EOSINOPHIL | 2.6 | 1.0 - 3.0 % | [facility] | | | % | | | LABORATORY | | | | | | SERVICES, | | | | | | CORE | | + + + + + + | BASOPHIL % | 2.7 (H) | 0.0 - 2.0 % | [facility] | | | | | | LABORATORY | | | | | | SERVICES, | | | | | | CORE | | + + + + + + | IG% | 0.9 (H)Comment: Immature | 0.0 - 0.6 % | [facility] | | | | Granulocytes (IG) | | LABORATORY | | | | include metamyelocytes, | | SERVICES, | | | | myelocytes and | | CORE | | | | promyelocytes. Bands are | | | | | | not included in the IG | | | | | | count. Bands are | | | | | | included in the | | | | | | neutrophil count. | | | | + + + + + + | REACTIVE | 0.9 | 0.0 - 10.0 % | [facility] | | | LYMPHS % | | | LABORATORY | | | | | | SERVICES, | | | | | | CORE | | + + + + + + | NEUTROPHIL | 4.16 | 1.80 - 7.70 | [facility] | | | # | | K/cu mm | LABORATORY | | | | | | SERVICES, | | | | | | CORE | | + + + + + + | LYMPHOCYTE | 2.98 | 1.00 - 4.80 | [facility] | | | # | | K/cu mm | LABORATORY | | | | | | SERVICES, | | | | | | CORE | | + + + + + + | MONOCYTE # | 0.14 | 0.10 - 0.90 | [facility] | | | | | K/cu mm | LABORATORY | | | | | | SERVICES, | | | | | | CORE | | + + + + + + | EOSINOPHIL | 0.20 | 0.00 - 0.50 | [facility] | | | # | | K/cu mm | LABORATORY | | | | | | SERVICES, | | | | | | CORE | | + + + + + + | BASOPHIL # | 0.21 (H) | 0.00 - 0.10 | [facility] | | | | | K/cu mm | LABORATORY | | | | | | SERVICES, | | | | | | CORE | | + + + + + + | IG# | 0.07 (H) | 0.00 - 0.03 | [facility] | | | | | K/cu mm | LABORATORY | | | | | | SERVICES, | | | | | | CORE | | + + + + + + | REACTIVE | 0.07 | K/cu mm | [facility] | | | LYMPHS # | | | LABORATORY | | | [...] | + + + + + | [facility] | [address] | [place] [address] | | | SERVICES, CORE | [address] | | | + + + + + CBC AND AUTO DIFF (09/27/2016 2:01 PM PDT) + +-------+ + + + | Component | Value | Ref Range | Performed | Pathologist | | | | | At | Signature | + +-------+ + + + | WHITE CELL | 7.84 | 3.50 - 10.80 | [facility] | | | COUNT | | K/cu mm | LABORATORY | | | | | | SERVICES, | | | | | | CORE | | + +-------+ + + + | RED CELL | 4.43 | 4.00 - 5.20 | [facility] | | | COUNT | | M/cu mm | LABORATORY | | | | | | SERVICES, | | | | | | CORE | | + +-------+ + + + | HEMOGLOBIN | 13.0 | 12.0 - 16.0 | [facility] | | | | | g/dL | LABORATORY | | | | | | SERVICES, | | | | | | CORE | | + +-------+ + + + | HEMATOCRIT | 39.1 | 36.0 - 46.0 % | [facility] | | | | | | LABORATORY | | | | | | SERVICES, | | | | | | CORE | | + +-------+ + + + | MCV | 88.3 | 80.0 - 96.0 fL | [facility] | | | | | | LABORATORY | | | | | | SERVICES, | | | | | | CORE | | + +-------+ + + + | MCHC | 33.2 | 33.0 - 35.5 | [facility] | | | | | g/dL | LABORATORY | | | | | | SERVICES, | | | | | | CORE | | + +-------+ + + + | RDW SD | 43.0 | 35.1 - 46.3 fL | [facility] | | | | | | LABORATORY | | | | | | SERVICES, | | | | | | CORE | | + +-------+ + + + | PLATELET | 229 | 150 - 400 K/cu | [facility] | | | COUNT | | mm | LABORATORY | | | | | | SERVICES, | | | | | | CORE | | + +-------+ + + + | MPV | 12.1 | 9.7 - 12.3 fL | [facility] | | | | | | LABORATORY | | | | | | SERVICES, | | | | | | CORE | | + +-------+ + + + | NRBC% | 0.0 | 0.0 - 0.3 % | [facility] | | | | | | LABORATORY | | | | | | SERVICES, | | | | | | CORE | | + +-------+ + + + | NRBC# | 0.00 [...] [facility] | [address] | [place] [address] | | | SERVICES, CORE | [address] | | | + + + + + VITAMIN D, 25-HYDROXY, SERUM (09/27/2016 2:01 PM PDT) + +---------+ + + + | Component | Value | Ref Range | Performed | Pathologist | | | | | At | Signature | + +---------+ + + + | VITAMIN D | 8.2 (L) | 30 - 80 ng/mL | [...] [facility] | [address] | [place] [address] | | | SERVICES, CORE | [address] | | | + + + + + COMPLETE METABOLIC SET (NA,K,CL,CO2,BUN,CREAT,GLUC,CA,AST,ALT,BILI TOTAL,ALK PHOS,ALB,PROT TOTAL) (09/27/2016 2:01 PM PDT) + + + + + + | Component | Value | Ref Range | Performed | Pathologist | | | | | At | Signature | + + + + + + | GLUCOSE, | 212 (H) | 60 - 99 mg/dL | [...] + + + + | CREATININE | 0.54 (L) | 0.60 - 1.10 | [facility] | | | PLASMA | | mg/dL | LABORATORY | | | (LAB) | | | SERVICES, | | | | | | CORE | | + + + + + + | EGFR | >60 | >60 mL/min | [facility] | | | - | | | LABORATORY | | | [place] | | | SERVICES, | | | [...] + + + + | CALCIUM, | 9.1 | 8.6 - 10.2 | [...] + + + | ALK PHOS | 137 (H) | 42 - 98 U/L | [facility] | | | | | | LABORATORY | | | | | | SERVICES, | | | | | | CORE | | + + + + + + | AST(SGOT) | 65 (H) | <=41 U/L | [facility] | | | | | | LABORATORY | | | | | | SERVICES, | | | | | | CORE | | + + + + + + | ALT (SGPT) | 93 (H) | <=60 U/L | [facility] | [...] [facility] | [address] | [place] [address] | | | SERVICES, CORE | [address] | | | + + + + + SEDIMENTATION RATE (09/27/2016 2:01 PM PDT) + +--------+ + + + | Component | Value | Ref Range | Performed | Pathologist | | | | | At | Signature | + +--------+ + + + | SEDIMENTATI | 23 (H) | 0 - 20 mm/hr | [...] | + + + + + | [facility] | [address] | [place] [address] | | | SERVICES, CORE | [address] [...]
--- OUTSIDE RECORDS SUMMARY | ~2020-01-05 | XMS | Encounter Summary ---
Demographics + + + | Address | [address] | | | [place] [address] | + + + | Home Phone | | + + + | Preferred Language | Unknown | + + + | Marital Status | | + + + | Restorationism Affiliation | Unknown | + + + | Race | White | + + + | Ethnic Group | or | + + + Author + + + | Author | [facility] | + + + | Organization | [facility] | + + + | Address | Unknown | + + + | Phone | Unavailable | + + + Support + + +---------+ + | Name | Relationship | Address | Phone | + + +---------+ + | Brittanie Remy | ECON | Unknown | | + + +---------+ + Care Team Providers + +------+ + | Care Aquaculture Worker Name | Role | Phone | + [...] | Rheumatology | Diagnoses | Miller, | Kyle, | | | | | Rheumatoid | Stephanie Fox MD | Afshan A, | | | | | arthritis | [address] | [facility] [facility] [address] | | | | | with | St | [address] | | | | | rheumatoid | Rajesh, | Charisse Caraballo | | | | | factor, | [place] [address] | [place], [place] | | | | | unspecified | Phone: | [phone] | | | | | Procedures | [phone] | Phone: | | | | | [place] | Fax: | [phone] | | | | | PATIENT | [phone] | Fax: | | | | | LEVEL [facility] | | [phone] | +--------+--------+ + + + + Encounter Details +--------+---------+ + + + | Date | Type | Department | Care Team | Description | +--------+---------+ + + + | 09/28/ | Office | Rheumatology at | Afshan Wright | 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 | | 2017 | Visit | Physicians S[facility] Buchanan, [facility] [facility] [address] | rheumatoid arthritis | | | | [address] | [address] | ([facility]) (Primary Dx); | | | | [facility] | [place], [place] | Long-term use of | | | | Pavilion, 4th Floor | [address] | high-risk | | | | [place], [place] | [phone] | medication; Vitamin | | | | [address] | | D deficiency | | | | [phone] | | | +--------+---------+ + + + [...] + + + | Blood Pressure | 128/75 | 01/31/2017 1:43 PM | | | | | PDT | | + + + + + | Pulse | 86 | 01/31/2017 1:43 PM | | | | | PDT [...] + + + + | Weight | 74.8 kg (165 lb) | 01/31/2017 1:43 PM | | | | | PDT | | + + + + + | Height | - | - | | + + + + + | Body Mass Index | 30.17 | 07/30/2016 1:51 PM | | | | | PDT | | + + + + + documented in this encounter Patient Instructions Patient Instructions Afshan Wright FNP - 01/31/2017 1:00 PM PDT Pruebas funcionales hepticas: Sobre estas pruebas - [ Liver Function Tests: About These T ests ] Qu es? Las pruebas funcionales hepticas revisan lo mata que funciona el hgado. Algunas pruebas miden la cantidad de determinadas enzimas en la tanesha para examinar si el hgado est da ado o inflamado. Otras pruebas miden lo mata que el hgado es capaz de producir protenas importantes o el iminar los productos de desecho del cuerpo. Traore mdico utilizar los resultados de las pruebas para ayudar a detectar determinadas afe cciones, gt hepatitis, cirrosis o problemas de la vescula biliar. El hecho de que las pr uebas den resultados que no son normales no siempre significa que haya un problema de hgad o. Traore mdico puede determinar si hay un problema basndose en xin resultados. Las pruebas podran incluir: Fosfatasa alcalina (ALP, por xin siglas en ingls). Esta prueba mide la cantidad de la enzima ALP en la tanesha. Protena total. Alannah prueba de protena srica total mide las cantidades de dos grupos principales de protenas en la tanesha (albmina y globulina) y la cantidad total de prote na. Bilirrubina. Esta prueba mide el nivel de bilirrubina en la tanesha. Cuando los niveles d e bilirrubina son altos, la piel y parte gogo de los ojos pueden parecer rossi (icteri danuta). [place] puede estar causado por alannah enfermedad heptica. Aspartato aminotransferasa (AST, por xin siglas en ingls) y alanina aminotransferasa ( ALT, por xin siglas en ingls). Estas pruebas miden la cantidad de las enzimas AST y ALT en la tanesha. (La aminotransferasa tambin es conocida gt transaminasa. Los niveles altos p odran llamarse transaminitis). Por qu se hace esta prueba? Las pruebas funcionales hepticas revisan lo mata que funciona el hgado. Algunas pruebas ayudan a mostrar si usted tiene el hgado daado o inflamado. Traore mdico podra indicarl e pruebas funcionales hepticas si usted tiene sntomas de enfermedad del hgado. Estas pruebas tambin pueden realizarse para determinar la eficacia del tratamiento para l a enfermedad heptica. Die Cutting Machine Operator puede prepararse para la prueba? Por lo general, usted no necesita prepararse antes de someterse a estas pruebas. Traore mdico le puede jesus algunas instrucciones especficas para que usted se prepare. Qu ocurre marie la prueba? Un profesional de la anil le cruz alannah muestra de tanesha. Qu ocurre despus de la prueba? Probablemente pueda irse a casa de inmediato. Cundo debe pedir ayuda? Vigile atentamente los cambios en traore anil, y asegrese de comunicarse con traore mdico si t iene algn problema. La atencin de seguimiento es alannah parte clave de traore tratamiento y seguridad. Asegrese de hacer y acudir a todas las citas, y llame a traore mdico si est teniendo problemas. Tambi n es alannah buena idea mantener alannah lista de los medicamentos que cruz. Pregntele a traore mdic o cundo puede esperar tener los resultados de la prueba. Dnde puede encontrar ms informacin en ingls? Para aprender ms sobre "Pruebas funcionales hepticas: Sobre estas pruebas - [ Liver Fun ction Tests: About These Tests ]", entre a traore cuenta de MyCmeredith en [email or web address] rt. Puede ingresar M077 en la celda de bsqueda del "Global Axcess Library". No est registrado en MyChart? Revise la seccin de MyCelizabetht en traore After Visit Summary p gosia instrucciones acerca de client support administrator registrarse. Revisado: 2015 Versin del contenido: 03.09-2017 [employer]. Las instrucciones de cuidado fueron adaptadas bajo l icencia por [facility] [employer] [place]. Si usted tiene preguntas sobre alannah afeccin mdica o sobre estas instrucciones, siempre pregunte a traore profesional de anil. [employer] niega toda garanta o responsabilidad por traore uso de esta informacin. Tendn de Bo: Ejercicios - [ Achilles Tendon: Exercises ] Instrucciones de cuidado Aqu se presentan algunos ejemplos de ejercicios para el tendn de Bo. Empiece cada ejercicio lentamente. Reduzca la intensidad del ejercicio si empieza a tener dolor. Traore mdico o fisioterapeuta le dirn cundo puede comenzar con estos ejercicios y cules funcionarn mejor para usted. Die Cutting Machine Operator hacer los ejercicios Estiramiento de dedo del pie 1. Sintese en alannah silla y extienda la pierna afectada de modo que el taln quede sobre e l piso. 2. [place] el dedo cheo con la mano y tire de l hacia arriba y hacia atrs. Tire hacia el tobillo y alejndose del piso. 3. Mantenga la posicin marie al menos 15 a 30 segundos. 4. Repita 2 a 4 veces por sesin, varias veces al da. Estiramiento de fascia plantar a pantorrilla 1. Sintese con las piernas extendidas y las rodillas rectas. 2. Coloque alannah gorman elstica o alannah toalla alrededor de traore pie niya por debajo de los ded os. Alannah toalla le proporcionar un estiramiento ms eficaz. 3. Sostenga cada extremo de la toalla o de la gorman con cada mano, con las raymond por encima de las rodillas. 4. Jale hacia atrs con la toalla o con la gorman para que el pie se extienda hacia usted. 5. Mantenga la posicin por lo menos de 15 a 30 segundos. 6. Repita 2 a 4 veces por sesin, hasta 5 veces al da. Estiramiento en el piso 1. Prese a aproximadamente 2 pies (60 cm) de alannah pared y coloque las raymond en la pared m s o menos a la altura de los hombros. O puede pararse detrs de alannah silla, colocando las m anos sobre el respaldo para mantener el equilibrio. 2. D un paso atrs con la pierna que desea estirar. Mantngala recta y presione el jm n contra el suelo con el pie ligeramente girado hacia adentro. 3. Inclnese hacia adelante y doble la otra pierna ligeramente. Sienta el estiramiento en el tendn de Bo de la pierna que est atrs. Sostngalo por lo menos de 15 a 30 seg undos. 4. Repita 2 a 4 veces por sesin, hasta 5 veces al da. Estiramiento en la tracy 1. Prese sobre la punta los pies en el borde de un escaln o en un bordillo (o en un dir ectorio telefnico de tamao medio). Con al menos alannah mano, sostngase de algo slido pa ra mantener el equilibrio, gt un barandal o un pasamanos. 2. Manteniendo recta la pierna afectada, deje que el taln cuelgue poco a poco del escal n o del borde hasta que sienta un estiramiento en la parte posterior de la pantorrilla y/o e n la luis carlos del tendn de Bo. Algo de traore peso debe estar todava en la otra pierna. 3. Mantenga la posicin marie al menos 15 a 30 segundos. 4. Repita entre 2 y 4 veces por sesin, hasta 5 veces al da o cada vez que empiece a sen tir tenso el tendn de Bo. Suzy estiramiento tambin se puede hacer con la rodilla li geramente flexionada. La atencin de seguimiento es alannah parte clave de traore tratamiento y seguridad. Asegrese de hacer y acudir a todas las citas, y llame a traore mdico si est teniendo problemas. Tambi n es alannah buena idea saber los resultados de los exmenes y mantener alannah lista de los medica mentos que cruz. Dnde puede encontrar ms informacin en ingls? Para aprender ms sobre "Tendn de Bo: Ejercicios - [ Achilles Tendon: Exercises ]", entre a traore cuenta de MyChart en [email or web address]. Puede ingresar M689 en la celd a de bsqueda del "Global Axcess Library". No est registrado en MyChart? Revise la seccin de MyChart en traore After Visit Summary p gosia instrucciones acerca de client support administrator registrarse. Revisado: 2016 Versin del contenido: 11.4 1394-6591 [employer]. Las instrucciones de cuidado fueron adaptadas bajo l icencia por [facility]. Si usted tiene preguntas sobre alannah afeccin mdica o sobre estas instrucciones, siempre pregunte a traore profesional de anil. [employer] niega toda garanta o responsabilidad por traore uso de esta informacin. documented in this encounter Progress Notes Afshan Wright FNP - 01/31/2017 1:00 PM PDTFormatting of this note might be differe nt from the original. Progress Note Clinic: Rheumatology Reason for follow-up: Chief Complaint Patient presents with RA - Rheumatoid arthritis Medication management Follow-up visit Ms. Sandrita Queen was last September 27, 2016. Travelling from [place], [place]. With friend MIKE who is translating as well. "I've been doing OK." Had a flare 1mo ago- "all body aching." Took course of prednisone and relieved all sx. Had issues w/ URI 8d ago then "body started to hurt again." 3d ago knees and ankles started hurting-but improved w/ walking. Has not been having lab monitoring- didn't understand. LFT elevated- denies etoh, acetaminophen. Denies GI sx. No h/o previous LFT elevation? EMS 30min. No real exercise- physical job. ROS: General: Intermittent fever, weight loss >10#, [...] vomiting, constipation, diarrhea, m dedra. : Dysuria, DATA COMPILER problems, sexual dysfunction. Neuro: Dizziness, loss of [...] skin (SUBC) every seven days. LABEL IN POLISH. DISCONTINUE ALL XELJANZ REFILLS. ergocalciferol (VITAMIN D2) 50,000 unit oral capsule Take 1 capsule by mouth twice week ly. LABEL IN POLISH. DOSE ADJUSTMENT. Indications: Vitamin D Deficiency (High Dose Therap y) folic acid 1 mg oral tablet Take 1 tablet by mouth once daily. MUST BE TAKEN WHEN USING METHOTREXATE (LABEL IN POLISH). ibuprofen (ADVIL) 100 mg oral tablet Take 100 mg by mouth every six hours as needed. methotrexate 25 mg/mL injection solution Inject 0.8 mL under the skin (SUBC) every nelson n days. LABEL IN POLISH. DOSE DECREASE 02/01/17. Indications: Rheumatoid Arthritis No current facility-administered medications for this visit. Allergies: Review of patient's allergies indicates no known allergies. Social History: Dominga reports that she has never smoked. She does not have any smokeless to bacco history on file. Family History: Family history includes Non-contributory in her brother, father, mother, an d sister. Physical Exam: BP 128/75 | Pulse 86 | Wt 74.8 kg (165 lb) | BMI 30.17 kg/(m^2) Pain Score: 7 Rapid 3 MHAQ: 2.0 (01/31/17 1300) PAIN LEVEL: 4 (01/31/17 1300) GLOBAL ASSESSMENT: 5 (01/31/17 1300) RAPID 3: 3.67 (01/31/17 1300) Gen: Well nourished, well developed, in NAD HEENT: unremarkable Ext: No clubbing, cyanosis, or edema M/S: LARIOS 28; +left ankle TTP; b/l wrists fixed deformity limiting flex/ext/ ab/ad Skin: moderate varicosities left LE Neuro: normal Labs: Lab Results Component Value Date WBC 9.55 01/31/2017 RBC 4.46 01/31/2017 HCT 39.4 01/31/2017 HB 13.2 01/31/2017 MCV 88.3 01/31/2017 MCHC 33.5 01/31/2017 PLT 233 01/31/2017 NEUTROPERC 72.7 (H) 01/31/2017 LYMPHPERC 20.6 01/31/2017 MONOPERC 5.1 01/31/2017 EOSPERC 0.9 (L) 01/31/2017 BASOPERC 0.5 01/31/2017 NEUTROPHILCO 6.93 01/31/2017 GLU 194 (H) 01/31/2017 BUN 12 01/31/2017 CR 0.42 (L) 01/31/2017 TP 8.1 01/31/2017 ALB 4.0 01/31/2017 CA 9.3 01/31/2017 TBILI 0.6 01/31/2017 AP 151 (H) 01/31/2017 AST 71 (H) 01/31/2017 NA 138 01/31/2017 K 3.9 01/31/2017 CL 103 01/31/2017 BICARB 26 01/31/2017 ALT 99 (H) 01/31/2017 Lab Results Component Value Date ESR 22 01/31/2017 ESR 23 09/27/2016 ESR 31 07/30/2016 Lab Results Component Value Date [id number] 9.2 01/31/2017 Impression: This is a 36 y.o. female here for follow up of seropositive RA. Also addresse d: Vitamin d deficency and elevated liver function. Background information of RA: First symptoms started: 10mo before dx Date of diagnosis: 2006 ACPA: +186 RF: +52 DMARDs: Methotrexate; HCQ, SSZ and lefunomide failure Biologic: Abatacept; adalimumab (failure after efficacy for 6yrs) X-ray: Bilateral hands and feet 11/2015 ([facility]) Erosion: +feet Functional Assessment [facility] FLOWSHEET 09/27/2016 09/27/2016 01/31/2017 01/31/2017 RAPID 3 3.77 3.67 Total Tender Joints 7 7 Total Swollen Joints 1 6 ESR 23 22 Global Health Value 5 4 DAS28 Score 4 4.4 Disease Activity Level Moderate Moderate Plan: 1. Influenza 5838-6149 and pneumococcal 23 vaccination today. 2. Labs CBC, CMP, ESR/CRP and vitamin D 25-OH- labs back before note closed. 3. LFT's remain consistently elevated- she denies ETOH and acetaminophen. Will decrease me thotrexate. 4. New Rx to pharmacy: Decrease methotrexate to 20mg/wk (0.8ml). Continue folic acid 1mg/ d. 5. Provided external lab sheet for monthly monitoring. Ed re importance of consistent lab eval. 6. Vitamin D remains extremely low. Increase ergocalciferol 50,000IU twice weekly. 7. She does c/o loss of both smell and taste. I asked that she f/u w/ her PCP soon. 8. Clinical reeval at 2mo. Sooner if needed. [facility] [address] [place] [address] Mailcode: Op09 [facility] 4th Floor [facility] [address] Display Progress Note in MyChart: No documented in t his encounter Plan of Treatment Not on filedocumented as of this encounter Results VITAMIN D, 25-HYDROXY, SERUM (01/31/2017 2:35 PM PDT) + +---------+ + + + | Component | Value | Ref Range | Performed | Pathologist | | | | | At | Signature | + +---------+ + + + | VITAMIN D | 9.2 (L) | 30 - 80 ng/mL | [...] LABORATORY | | >18years: Deficiency: <20 | SHAVON, CORE | | ng/mL Insufficiency: 20-29 ng/mL | | | Optimum Level: 30-80 ng/mL High: | | | 81-150 ng/ml Toxic: >150 ng/mL | | + + + + + + + + | Performing | Address | City/State/Zipcode | Phone Number | | Organization | | | | + + + + + | [facility] | [address] | [place] [address] | | | [place] | [address] | | | + + + + + C-REACTIVE PROTEIN (01/31/2017 2:35 PM PDT) + +-------+ + + + | Component | Value | Ref Range | Performed | Pathologist | | | | | At | Signature | + +-------+ + + + | C-REACTIVE | 7.3 | <10.0 mg/L | [facility] | | [...] and new reporting units as of | [facility] | | 10/07/2013. | LABORATORY | | | SERVICES, CORE | + + + + + + + + | Performing | Address | City/State/Zipcode | Phone Number | | Organization | | | | + + + + + | [facility] | [address] | [place] [address] | | | SERVICES, CORE | [address] | | | + + + + + COMPLETE METABOLIC SET (NA,K,CL,CO2,BUN,CREAT,GLUC,CA,AST,ALT,BILI TOTAL,ALK PHOS,ALB,PROT TOTAL) (01/31/2017 2:35 PM PDT) + + + + + + | Component | Value | Ref Range | Performed | Pathologist | | | | | At | Signature | + + + + + + | GLUCOSE, | 194 (H) | 70 - 99 mg/dL | [...] + + + + | CREATININE | 0.42 (L) | 0.60 - 1.10 | [facility] | | | PLASMA | | mg/dL | LABORATORY | | | (LAB) | | | SERVICES, | | | | | | CORE | | + + + + + + | EGFR | >60 | >60 mL/min | [facility] | | | - | | | LABORATORY | | | GUAMANIAN | | | SERVICES, | | | [...] + + + + | POTASSIUM, | 3.9 | 3.4 - 5.0 | [facility] | | | PLASMA | | mmol/L | LABORATORY | | | (LAB) | | | SERVICES, | | | | | | CORE | | + + + + + + | CHLORIDE, | 103 | 97 - 108 mmol/L | [facility] [...] + + + + | TOTAL | 8.1 | 6.4 - 8.2 g/dL | [facility] [...] + + + | ALK PHOS | 151 (H) | 42 - 98 U/L | [facility] | | | | | | LABORATORY | | | | | | SERVICES, | | | | | | CORE | | + + + + + + | AST(SGOT) | 71 (H) | <=41 U/L | [facility] | | | | | | LABORATORY | | | | | | SERVICES, | | | | | | CORE | | + + + + + + | ALT (SGPT) | 99 (H) | <=60 U/L | [facility] | [...] | Adult glucose reference range change effective 7-17. GFR is | [facility] | | estimated using the MDRD equation recommended by the National Kidney | LABORATORY | | Disease Education Program. Estimated GFR Interpretive Information: | SHAVON, CORE | | <60 mL/min/1.73 sq m [...] | + + + + + | [facility] | [address] | [place] [address] | | | [place] | [address] | | | + + + + + SEDIMENTATION RATE (01/31/2017 2:35 PM PDT) + +--------+ + + + | Component | Value | Ref Range | Performed | Pathologist | | | | | At | Signature | + +--------+ + + + | SEDIMENTATI | 22 (H) | 0 - 20 mm/hr | [...] rate. | LABORATORY | | | SERVICES, B[place]THA | + + + + + + + + | Performing | Address | City/State/Zipcode | Phone Number | | Organization | | | | + + + + + | [facility] | [address] | [place] [address] | | | SERVICES, B[place]THA | [address] [...]
--- OUTSIDE RECORDS SUMMARY | ~2020-01-05 | XMS | Encounter Summary ---
Demographics + + + | Address | [address] | | | [place] [address] | + + + | Home Phone | | + + + | Preferred Language | Unknown | + + + | Marital Status | | + + + | Presybeterian Affiliation | Unknown | + + + | Race | White | + + + | Ethnic Group | or | + + + Author + + + | Author | [facility] | + + + | Organization | [facility] | + + + | Address | Unknown | + + + | Phone | Unavailable | + + + Support + + +---------+ + | Name | Relationship | Address | Phone | + + +---------+ + | Brittanie Remy | ECON | Unknown | | + + +---------+ + Care Team Providers + +------+ + | Care Counterintelligence Specialist Name | Role | Phone | + +------+ + | Isacc Chi | PCP | | + +------+ + Reason for Visit + + + | Reason | Comments | + + + | RA - Rheumatoid | | | arthritis | | + + + | New patient | | | consultation | | + + + | Establish care | | + + + Intake Referral [...] | | | | arthritis, | [facility] [place] [facility] | | | | | unspecified | Medical | [address] | | | | | | [facility] [address] | [facility] | | | | | [address] | [address] | | | | | | [address] | Floor | | | | | | [place], [place] | [place], [place] | | | | | | [address] | [address] | | | | | | Phone: | Phone: | | | | | | [phone] | [phone] | | | | | | Fax: | Fax: | | | | | | [phone] | [phone] | +--------+--------+ + + + + Encounter Details +--------+---------+ + + + | Date | Type | Department | Care Team | Description | +--------+---------+ + + + | 07/26/ | Office | Rheumatology at | Afshan Wright | Long-term use of | | 2016 | Visit | Physicians [facility] [address] | high-risk medication | | | | [address] | [address] | (Primary Dx); | | | | [address] [facility] | [place], [place] | 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 | | | | [address] | [address] | rheumatoid arthritis | | | | [place], [place] | [phone] | (HCC) | | | | [address] | | | | | | [phone] | | | +--------+---------+ + + + [...] + + + | Blood Pressure | 117/69 | 11/29/2015 10:37 AM | | | | | PDT | | + + + + + | Pulse | 81 | 11/29/2015 10:37 AM | | | | | PDT [...] + + + + | Weight | 76.2 kg (168 lb) | 11/29/2015 10:37 AM | | | | | PDT | | + + + + + | Height | 152.4 cm (5') | 11/29/2015 10:37 AM | | | | | PDT | | + + + + + | Body Mass Index | 32.81 | 11/29/2015 10:37 AM | | | | | PDT | | + + + + + documented in this encounter Patient Instructions Patient Instructions Afshan Wright, SUAD - 11/29/2015 11:25 AM PDTYOU NEED TO TAKE FO LIC ACID EVERY DAY IN THE STORE GET "FOLIC ACID 400 MCG" TAKE 3 PILLS AT ONE TIME EVERY DAY prednisone Renetta: Kate, Sterapred, Sterapred 12 DAY, Sterapred DS, Sterapred DS 12 DAY Qu es prednisone? Prednisone es un esteroide. [...] paso normal mientras est usando esta medicina. Stores Clerk ariella jayde prednisone? Siga todas las instrucciones en la etiqueta de traore prescripcin. Traore mdico puede en alireza edin cambiar traore dosis para asegurarse de que usted est obteniendo los mejores resultados. N o tome esta medicina en cantidades mayores o menores, o por ms tiempo de lo recomendado. [place] con comida. Traore dosis jm vez necesite [...] las instrucciones de traore m dico de experimental display builder disminuir de forma gradual traore dosis. Lleve con usted alannah tarjeta de identificacin que indique que usted est tomando predniso ne. Cualquier proveedor del cuidado mdico que lo trate debera saber que usted est usan do un esteroide. Guarde a temperatura ambiente fuera de la humedad y del calor. Qu sucede si me basia alannah dosis? [place] la dosis que jacquie de jayde jones [...] reportar efectos secundarios llamando al FDA al [id number]. Qu otras drogas afectarn a prednisone? Muchas drogas pueden tener interacciones con prednisone. No todas las interacciones posible s se enumeran aqu. Dgale a traore mdico acerca de todos xin medicamentos, incluyendo cualq uiera que comience o deje de usar marie traore tratamiento con prednisone, especialmente: amphotericin B; cyclosporine; digoxin, digitalis; Cassoday's wort; un antibitico gt clarithromycin o telithromycin; [...] muchas otras drogas pueden interactuar con prednisone. [place] incluye las medicinas que se obtienen con [...] con traore mdico, enfermera, o farmacutico. Copyright [id number] [employer] Version: 9.01. Revision date: 06/30/2012. Esta informacin no reemplaza la consulta mdica. [facility] niega toda gar anta y responsabilidad por el uso de esta informacin. Versin del contenido: [id number] Artritis reumatoide: Instrucciones de cuidado [Rheumatoid Arthritis: Care Instructions] Instrucciones de cuidado La artritis es un problema comn de anil que se caracteriza por la inflamacin de las ar ticulaciones. Hay muchos tipos de artritis. En la artritis reumatoide, el propio sistema inm unitario del organismo ataca las articulaciones. [place] causa dolor, rigidez e hinchazn en l as articulaciones, sobre todo en las raymond y los pies. Puede dificultarle abrir frascos, esc ribir y hacer otras actividades diarias. A veces la artritis reumatoide tambin puede causa r bultos debajo de la piel. Con el tiempo la artritis reumatoide puede daar y deformar las articulaciones. El tratami ento temprano con medicamentos podra reducir xin probabilidades de tener alannah discapacidad prolongada. La atencin de seguimiento es alannah parte clave de traore tratamiento y seguridad. Asegrese de hacer y acudir a todas las citas, y llame a traore mdico si est teniendo problemas. Tambi n es alannah buena idea saber los resultados de los exmenes y mantener alannah lista de los medica mentos que cruz. Stores Clerk puede cuidarse en el hogar? Bob ms ejercicios si traore mdico se lo recomienda. Caminar es alannah buena opcin. Si le duelen las rodillas o los tobillos, trate de montar en bicicleta esttica o nadar. Mueva cada articulacin de forma suave en toda traore amplitud de movimiento alannah o dos vece s al da. Descanse las articulaciones cuando estn adoloridas o hayan hecho mucho esfuerzo. Los d escansos cortos podran ayudar ms que quedarse en cama. Alcance y mantenga un peso saludable. El ejercicio hecho regularmente y alannah dieta saluda ble le ayudarn a lograrlo. El sobrepeso puede tensar las articulaciones, especialmente las rodillas y caderas, y empeorar el dolor. [place]aj[place] incluso unas pocas libras podra ayudar. Consuma suficiente calcio y vitamina D para ayudar a prevenir la osteoporosis, que causa huesos dbiles. Hable con traore mdico acerca de qu cantidad debe jayde. Proteja xin articulaciones de las lesiones. No las use en exceso. Trate de limitar o michael tar actividades que causan dolor o hinchazn en las articulaciones. Si lo necesita, use [place] nsilios de cocina especiales y otros aparatos para ayudarse, gt andadores, tablillas (fr ulas) o bastones. Use calor para aliviar el dolor. [place] baos o duchas tibias. Utilice compresas caliente s o alannah almohadilla trmica ajustada a baja temperatura. Duerma con alannah cobija elctrica a justada a alannah temperatura media. Aplquese hielo o alannah compresa fra sobre la luis carlos marie 10 a 20 minutos cada vez. P ngase un denise armendariz entre el hielo y la piel. [place] los analgsicos (medicamentos para el dolor) exactamente segn las indicaciones. Si el mdico le recet un analgsico, tmelo segn las indicaciones. Si no est tomando un analgsico recetado, pregntele a traore mdico si puede jayde taiwo de venta lucy. Participe de manera activa en el manejo de traore afeccin. Elabore un plan de tratamiento con traore mdico y aprenda todo lo que pueda sobre la artritis reumatoide. [place] le ayudar a controlar el dolor y mantenerse activo. Cundo debe pedir ayuda? Llame a traore mdico ahora mismo o busque atencin mdica inmediata si: Tiene fiebre o salpullido junto con dolor en las articulaciones. Usted tiene un dolor en alannah articulacin que es jones intenso que no puede usar dicha art iculacin. Tiene hinchazn, enrojecimiento o dolor repentinos en alannah o ms articulaciones y no sa be por qu. Tiene dolor en la espalda o el elliott, adems de debilitamiento en los brazos o las pie rnas. Pierde el control de la vejiga o los intestinos. Preste especial atencin a los cambios en traore anil y asegrese de comunicarse con traore md ico si: Tiene dolor en las articulaciones que dura ms de 6 semanas. Tiene efectos secundarios por los medicamentos para la artritis, gt dolor de estmago , nuseas, acidez gstrica o heces oscuras parecidas al alquitrn. Dnde puede encontrar ms informacin en ingls? Para aprender ms sobre "Artritis reumatoide: Instrucciones de cuidado", entre a traore cuenta de [employer] en [email or web address]. Puede ingresar K205 en la celda de bsqueda del [employer] . No est registrado en MyChart? Revise la seccin de MyChart en traore After Visit Summary p gosia instrucciones acerca de experimental display builder registrarse. [id number] [employer]. Instrucciones de cuidado adaptadas bajo licencia por [facility]. Estas instrucciones de cuidado son para usarlas con traore profesional clnico registrado. Si tiene preguntas acerca de alannah afeccin mdica o de est as instrucciones, pregunte siempre a traore profesional de la anil. [employer] ni ega cualquier garanta o responsabilidad por traore uso de esta informacin. Alisia del contenido: [id number]; Revisado: 2015 Rheumatoid Arthritis Diet: Care Instructions Your Care Instructions The best diet for people with rheumatoid arthritis is a healthy, balanced diet that is low in saturated fat and salt and high in fiber and complex carbohydrate (whole grains, beans, f ruits, and vegetables). Fish oil (omega-3 fatty acids) has a modest effect in reducing inflammation, and eating fis h may improve symptoms. People who have rheumatoid arthritis have a high risk of developing osteoporosis. To help p revent this disease, get plenty of calcium and vitamin D. Follow-up care is a okeefe part of your treatment and safety. Be sure to make and go to all ap pointments, and call your doctor if you are having problems. It's also a good idea to know y our test results and keep a list of the medicines you take. How can you care for yourself at home? Try to eat at least 2 servings of fish each week. Oily fish, which contain omega-3 fatty acids, include: Tuna. [place]. Mackerel. [place] trout. Rios. Sardines. If you're , talk to your doctor about eating fish. women shouldn't eat certain types of fish that have high mercury content. You can get calcium and vitamin D by drinking milk fortified with vitamin D. Four glasse s of milk a day provide about 1,200 milligrams (mg) of calcium. Other common foods with calc ium: Yogurt (plain or low-fat). An 8-ounce serving provides 415 mg of calcium. Cheddar cheese. A 1-ounce serving provides 306 mg. Milk (skim, 2%, or whole). A 1-cup serving provides about 300 mg. Cottage cheese (1% milk fat). A 1-cup serving provides 138 mg. If you can't eat or drink dairy foods, you can get calcium and vitamin D from: Calcium-fortified orange juice. A 1-cup serving provides 500 mg of calcium. Calcium-enriched soy milk. A 1-cup serving provides 282 mg of calcium. Almonds. A 1-ounce serving (about 24 nuts) provides 75 mg of calcium. Canned salmon. A 3-ounce serving provides 180 mg of calcium. Tofu (firm, made with calcium sulfate). A -cup serving provides 204 mg. You may need to take a calcium supplement to make sure you are getting the calcium you n eed. Where can you learn more? To learn more about "Rheumatoid Arthritis Diet: Care Instructions", log into your Hostspot a ccount at [email or web address] You can enter Q201 in the [employer] Library" search b ox. Not on Hostspot? Review the Hostspot section of your After Visit Summary for directions on ho w to sign up. [id number] [employer] Care instructions adapted under license by [facility]. This care instruction is for use with your licensed healthcar e professional. If you have questions about a medical condition or this instruction, always ask your healthcare professional. [employer] disclaims any warranty or liabili ty for your use of this information. Content Version: [id number]; Current as of: June 10, 2015 methotrexate (injection) Renetta: Methotrexate Sodium, Preservative Free, Otrexup, Rasuvo Qu es methotrexate injection? Methotrexate interfiere con el crecimiento de ciertas clulas del cuerpo, especialmente c lulas que se reproducen rpidamente, gt clulas cancerosas, clulas de la mdula se a, y clulas de la piel. Methotrexate injection se usa para tratar la leucemia y ciertos tipos de cncer de la mama , de la piel, de la brielle y del elliott, o de los pulmones. Methotrexate injection tambin se usa para tratar la psoriasis severa y la artritis reumatoide. Methotrexate injection generalmente es administrado despus de que otros medicamentos galloway sido usados sin xito en el tratamiento de los sntomas. Methotrexate injection puede tambin usarse para fines no mencionados en esta gua del wy dicamento. Qu debera discutir con el profesional del cuidado de la anil antes de jayde methotre xate injection? Usted no debe usar methotrexate injection si es alrgico a ron. Methotrexate injection n o debe usarse para el tratamiento de la psoriasis o la artritis reumatoide si usted tiene: enfermedad del hgado crnica; alcoholismo o cirrosis del hgado; un trastorno de las clulas sanguneas gt bajos conteos de glbulos rojos o blancos , o niveles bajos de plaquetas en la tanesha; un sistema inmunolgico dbil o trastorno de la mdula sea; o si usted est embarazada o amamantando. Methotrexate injection a veces se usa para tratar el cncer aun cuando los pacientes tiene n alannah de las condiciones enumeradas anteriormente. Traore mdico decidir si suzy tratamiento es apropiado para usted. Para asegurarse que methotrexate es seguro para usted, dgale a traore mdico si usted tiene: enfermedad del rin; problemas del hgado; enfermedad de los pulmones o neumona; lcera gstrica, colitis ulcerosa; cualquier tipo de infeccin; o si usted est recibiendo fototerapia o tratamientos con radiacin. Suzy medicamento puede causarle shamar al beb jacoby o causar defectos de nacimiento. No u se methotrexate si usted est embarazada. Usted puede necesitar tener alannah prueba de embara zo negativa antes de comenzar suzy tratamiento. Dgale a traore mdico de inmediato si queda e mbarazada marie el tratamiento. Suzy medicamento puede afectar la fertilidad (traore habilidad de tener hijos), ya sea usted ho mbre o raul. Sin embargo, tanto los hombres gt las mujeres deben usar control de la idad para prevenir el embarazo mientras estn recibiendo esta medicina. El uso de methotrex ate por cualquiera de los padres puede causar defectos de nacimiento. Si usted es alannah raul, use alannah forma efectiva de control de la natalidad mientras est usa ndo methotrexate injection, y por lo menos marie un ciclo de ovulacin despus de que te rmine traore tratamiento. Si usted es un hombre, use un condn para evitar causar un embarazo mientras est usando methotrexate injection. Contine usando condones por lo menos marie 90 membreno despus de que termine traore tratamiento. Methotrexate puede pasar a la leche materna y causarle shamar al beb lactante. No amamante mientras est tomando methotrexate. Stores Clerk se administra methotrexate injection? Traore mdico va a realizarle exmenes sanguneos para asegurarse que usted no tenga condici ones que le impidan usar methotrexate de forma francisco. Methotrexate es inyectado bajo la piel, en el msculo, o en alannah vena a travs de alannah inye ccin intravenosa. Methotrexate tambin puede inyectarse directamente en alannah articulacin , o en un dolores alrededor del cordn barry. Un profesional del cuidado de la anil le adm inistrar esta inyeccin. Jm vez le muestren gt usar inyecciones en traore casa. No se inyecte esta medicina si no ent iende mata experimental display builder aplicarse la inyeccin y deshacerse de las agujas usadas, el tubo de intra venosa, y las otras cosas que se usan para administrar la medicina. Siga todas las instrucci ones en la etiqueta de traore prescripcin. No use esta medicina en cantidades mayores o menore s, o por ms tiempo de lo recomendado. Otrexup o Rasuvo (methotrexate para inyectar bajo la piel) es para uso solamente alannah vez ca da semana. No use Otrexup todos los membreno. Suzy medicamento viene con instrucciones para el paciente para traore uso seguro y efectivo. Si ga con cuidado estas instrucciones. Si tiene alguna pregunta, hable con traore mdico o farmac utico. Es muy importante no inyectarse mucho methotrexate cuando suzy usando suzy medicamen to en traore casa. No use esta medicina si cruz cambiado de color o tiene bultos o partculas por dentro. Llame a traore farmacutico para recibir un medicamento nuevo. Use alannah aguja y jeringa desechable slo alannah vez. Siga cualquier antwan local o estatal acerca de experimental display builder desechar las agujas y jeringas usadas. Use un contenedor para elementos corto punz antes (pregntele a traore farmacutico acerca de experimental display builder conseguir taiwo y experimental display builder desecharlo). Man tenga suzy contenedor fuera del alcance de los nios y mascotas. Methotrexate puede ser txico para xin rganos, gt traore estmago, hgado, pulmones, ri ones, nervios, piel, y mdula sea (sistema inmunolgico). Traore tanesha y orina necesitar n ser chequeados con frecuencia, y ocasionalmente puede que necesite alannah biopsia del hgado o radiografa del pecho. Visite a traore mdico con regularidad. Guarde a temperatura ambiente fuera de la humedad, el calor, y la gergg. No congele. Qu sucede si me basia alannah dosis? Llame a traore mdico para instrucciones si usted olvida alannah alina mdica para traore inyeccin d e methotrexate, o si usted olvida usar traore medicina en casa. Qu sucedera en alannah sobredosis? Busque atencin mdica de emergencia o llame a la lnea de [facility] al . Alannah sobredosis de methotrexate podra ser fatal. Qu ariella evitar mientras vince methotrexate injection? No buzz alcohol. Efectos secundarios graves pueden ocurrir cuando se combina el alcohol con methotrexate. No reciba alannah vacuna "viva" mientras use methotrexate, o podra desarrollar alannah infeccin grave. Las vacunas zulema incluyen sarampin, paperas, rubola (MMR), rotavirus, tifoidea, fiebre amarilla, varicela, zster (culebrilla), y la vacuna nasal para la influenza. Esta medicina puede pasar a los fluidos corporales (la orina, heces, vmito). Marie al keri 48 horas despus de recibir alannah dosis, evite que xin fluidos corporales entren en cont acto con xin raymond u otras superficies. Las personas que cuidan a los pacientes, deben usar guantes de goma mientras limpian fluidos corporales de los pacientes, manipulan basura o rop a contaminada, o cambian paales. Lvese las raymond antes y despus de haberse quitado los guantes. Lave la ropa contaminada y la ropa de cama separada de las dems prendas. Methotrexate puede perjudicar xin pensamientos o reacciones. Evite manejar u operar maquina kylah antes de saber experimental display builder esta medicina le afectar. Evite la exposicin a la gregg solar o kate UVA artificiales (lmparas gunjan, rufina hugo res, o tratamiento de PUVA), especialmente si usted tiene psoriasis. Methotrexate injection puede hacer traore piel ms sensitiva a la gregg solar y traore psoriasis puede empeorar. Cules son los efectos secundarios posibles de methotrexate injection? Busque atencin mdica de emergencia si usted tiene sntomas de alannah reaccin alrgica: ronchas; dificultad para respirar; hinchazn de la luis a, labios, lengua, o garganta. Llame a traore mdico de inmediato si usted tiene: problemas de los nervios --confusin, debilidad, problemas con la coordinacin, somnol encia, sensacin de irritabilidad, dolor de espalda, dolor de brielle, rigidez de la nuca, c onvulsiones, problemas con la visin, prdida del movimiento en cualquier parte del cuerpo ; signos de sangrado en el estmago --diarrea, heces con tanesha o alquitranadas, tos con tanesha o vmito que parece caf molido; problemas de los pulmones --dolor de pecho repentino u opresin, sibilancias, dificulta d para respirar, tos seca o expectoracin; signos de infeccin --debilidad o sensacin de enfermedad repentina, fiebre, escalofr os, dolor de garganta, tos con moco, vmitos, prdida de peso, sudores nocturnos, glndu las hinchadas, llagas en la boca, encas crawford o hinchadas, dificultad al tragar; problemas de los riones --hinchazn, ganancia de peso rpida, orinar poco o nada; o reaccin severa de la piel --fiebre, dolor de garganta, hinchazn en traore luis a o lengua, quemazn en xin ojos, dolor de la piel, seguido por un sarpullido miranda o prpura que se e xtiende (especialmente en la luis a o la parte superior del cuerpo) y causa ampollas y descama margi. Efectos secundarios comunes pueden incluir: nusea, vmitos, dolor o malestar del estmago, diarrea; ampollas o lceras en traore boca, encas crawford o hinchadas, dificultad al tragar; sarpullido leve; dolor de brielle, mareo; secrecin o congestin nasal, dolor de garganta, silbido, dificultad para respira pruebas de la funcin heptica anormales; moretones o sangrado fciles (sangrar por la nariz o encas); prdida temporal del greg; dolor de brielle ocasional, visin borrosa; o sensacin de quemazn en lesiones psoriticas. Esta lista no menciona todos los efectos secundarios y puede ser que ocurran otros. Llame a traore mdico para consejos mdicos relacionados a efectos secundarios. Usted puede reportar efectos secundarios llamando al FDA al [id number]. Qu otras drogas afectarn a methotrexate injection? Muchas drogas pueden interactuar con methotrexate. [place] incluye las medicinas que se obtien en con o sin receta, vitaminas, y productos herbarios. Dgale a traore mdico acerca de todos xin medicamentos, incluyendo cualquiera que comience o deje de usar marie traore tratamiento c on methotrexate. Dnde puedo obtener ms informacin? Traore mdico o farmacutico le puede jesus ms informacin acerca de methotrexate injection. Recuerde, mantenga sta y todas las otras [...] consumidor en l os [place] [facility] [place] y por lo cual [employer] no [...] con traore mdico, enfermera, o farmacutico. Copyright [id number] [facility] [employer]. Version: 2.06. Revision date: 01/26/2015. Esta informacin no reemplaza la consulta deepak. [employer] niega toda gar anta y responsabilidad por el uso de esta informacin. Versin del contenido: [id number] folic acid Renetta: FA-8, Folacin-800 Qu es folic acid? Folic acid es un tipo de vitamina B que existe normalmente en alimentos gt frijoles, guis antes, lentejas, naranjas, productos de swapna, hgado, esprragos, remolachas, brculi, c ol de Brus[place]as, y espinaca. Folic acid ayuda a traore cuerpo a producir y mantener nuevas clulas, y tambin ayuda a prev enir cambios en traore ADN (DNA, por xin siglas en Ingles) que puede causar cncer. En forma de medicamento, folic acid se usa para el tratamiento de la deficiencia folic acid y ciertos tipos de anemia (baja cantidad de clulas crawford en la tanesha) causada por la def iciencia folic acid. Folic acid se usa a veces en combinacin con otros medicamentos para el tratamiento de la anemia perniciosa. Sin embargo, el folic acid no curar la deficiencia de la vitamina B12 y no evitar el shamar posible a la mdula barry. [place] todas xin medicinas gt indicado. Folic acid puede tambin usarse para otros fines no mencionados en esta gua del medicame nto. Qu debera discutir con el profesional del cuidado de la anil antes de jayde folic ac id? Usted no debe usar suzy medicamento si alguna vez cruz tenido alannah reaccin alrgica al foli c acid. Si usted tiene alguna de estas otras condiciones, quizs necesite modificar traore dosis o pru ebas especiales para que pueda usar esta medicina con seguridad: enfermedad del rin (o si est recibiendo dilisis); anemia hemoltica; anemia perniciosa anemia que no cruz sido diagnosticada por un mdico y confirmada por pruebas de laborator io; alannah infeccin; o si usted es alcohlico. Categora A del embarazo por la FDA. No se anticipa que folic acid le cause shamar al beb jacoby, y la dosis que necesite puede aumentar mientras est embarazada. Hable con traore md ico acerca de gt debe jayde folic acid marie el embarazo. La dosis que necesite tambin pueden ser diferente si usted est dando de amamantar al be b. Pregntele a traore mdico gt debe jayde folic acid si usted est dando de amamantar. Stores Clerk ariella jayde folic acid? [place] suzy medicamento exactamente gt lo haya recetado traore mdico. No lo tome en cantidade s mayores, o por ms tiempo de lo recomendado. Siga las instrucciones que vienen en la etiq ueta de traore prescripcin. [place] folic acid con un vaso de agua lleno. Jm vez traore mdico en ocasiones cambie traore dosis para asegurarse de que usted est obtenien do los mejores resultados de suzy medicamento. Guarde folic acid a temperatura ambiente fuera de la humedad y calor. Qu sucede si me basia alannah dosis? [place] la dosis pasada jones pronto se acuerde. Si ya alice es hora para la siguiente dosis, bernadette ere y tome la medicina a la prxima hora de traore horario regular. No tome ms medicina para alcanzar la dosis pasada. Qu sucedera en alannah sobredosis? Busque atencin mdica de emergencia si sospecha que cruz usado demasiada medicina. Los sntomas de alannah sobredosis pueden incluir entumecimiento o sensacin de hormigueo, do wagner de la boca o la lengua, debilidad, sentirse cansado, confusin, o dificultad para darling ntrarse. Qu ariella evitar mientras vince folic acid? Siga las instrucciones de traore mdico acerca de cualquier restriccin de comidas, bebidas, o actividades a hacer. Cules son los efectos secundarios posibles folic acid? Busque atencin mdica de emergencia si nota alguno de estos sntomas de alannah reaccin a lrgica: ronchas, dificultad para respirar; hinchazn de la luis a, labios, lengua, o gargan ta. Es ms probable que ocurran efectos secundarios de alexi gravedad, alana pueden incluir: nusea, prdida del apetito; distensin, gas; sabor amargo o desagradable en traore boca; problemas para dormir; depresin; o sentirse emocionado o irritado. Esta lista no menciona todos los efectos secundarios y puede ser que ocurran otros. Llame a traore mdico para consejos mdicos relacionados a efectos secundarios. Usted puede reportar efectos secundarios llamando al FDA al [id number]. Qu otras drogas afectarn al folic acid? La dosis de otros medicamentos que cruz jm vez necesiten cambios mientras usted est cruz ndo folic acid. Dgale a traore mdico acerca de todos los medicamentos que usted use, en particular: phenytoin (Dilantin); methotrexate (Rheumatrex, Trexall); nitrofurantoin (Macrodantin, Macrobid); pyrimethamine (Daraprim); tetracycline (Ala-Tet, Brodspec, Sumycin); un barbitrico gt butabarbital (Butisol), secobarbital (Seconal), pentobarbital (Nemb utal), o phenobarbital (Solfoton); o medicinas para las convulsiones gt phenytoin (Dilantin) o primidone (Mysoline). Esta lista no incluye todas las drogas y pueden existir otras que tengan interacciones con folic acid. Dgale a traore mdico acerca de todas las medicinas que est tomando, ya aimee re cetadas o no, vitaminas, minerales, productos herbarios, y las drogas recetadas por otros m dicos. No empiece a usar alannah nueva medicina sin antes decirle a traore mdico. Dnde puedo obtener ms informacin? Traore farmacutico tiene ms informacin acerca folic acid. Recuerde, mantenga sta y todas las otras [...] de [place] y por lo cual [facility] no certifica que el uso fue ra [...] con traore mdico, enfermera, o farmacutico. Copyright [id number] [employer] Version: 5.02. Revision date: 04/19/2010. Esta informacin no reemplaza la consulta mdica. [facility] niega toda gar anta y responsabilidad por el uso de esta informacin. Versin del contenido: [id number] tofacitinib Renetta: Chiquis Qu es tofacitinib? Tofacitinib funciona al bloquear ciertas enzimas en el cuerpo que afectan el funcionamiento del sistema inmunolgico. Tofacitinib se usa para el tratamiento de la artritis reumatoide moderada a severa en adult os que galloway recibido methotrexate para el tratamiento de los sntomas, sin xito. Tofacitin ib a veces se usa en combinacin con methotrexate u otras medicinas para la artritis. Tofacitinib puede tambin usarse para fines no mencionados en esta gua del medicamento. Qu debera discutir con el profesional del cuidado de la anil antes de jayde tofaciti nib? Usted no debe usar tofacitinib si es alrgico a ron, o si usted tiene alannah enfermedad o i nfeccin grave. Dgale a traore mdico si alguna vez cruz tenido tuberculosis, si alguna persona en traore casa cruz tenido tuberculosis, o si usted recientemente cruz viajado a algn dolores donde la tuberculosi s es comn. Para asegurarse que tofacitinib es seguro para usted, dgale a traore mdico si usted tiene: alannah infeccin activa o crnica; cualquier tipo de infeccin causada por bacterias, hongos o virus; alannah herida infectada en la piel; diabetes; enfermedad del hgado (especialmente hepatitis B o C); enfermedad del rin; VIH o SIDA; un historial de cncer de la piel o melanoma; un historial de diverticulitis, lcera en el estmago, o perforacin (un agujero o ra sgadura) en traore esfago, estmago o intestinos; o un sistema inmunolgico dbil causado por alannah enfermedad o por usar ciertas medicinas (especialmente methotrexate o medicina esteroide gt dexamethasone). Tofacitinib puede aumentar traore riesgo de ciertos cnceres al cambiar el funcionamiento de s u sistema inmunolgico. Si usted cruz tenido un trasplante de rin, tofacitinib puede hace r que traore cuerpo produzca demasiada cantidad de cierto tipo de glbulos blancos. Categora C del embarazo por la FDA. No se conoce si tofacitinib causar shamar al beb n onato. Dgale a traore mdico si usted est embarazada o planea quedar embarazada mientras es t usando esta medicina. Si usted est embarazada, traore nombre jm vez suzy enlistado en un registro de embarazos. Es to es para seguir el resultado del embarazo y para evaluar cualquier efecto de tofacitinib e n el beb. No se sabe si tofacitinib pasa a la leche materna o si le puede hacer shamar al beb lactan te. Usted no debe amamantar mientras usa esta medicina. Stores Clerk ariella jayde tofacitinib? Antes de empezar el tratamiento con tofacitinib, traore mdico le puede realizar pruebas para asegurarse de que no tiene tuberculosis u otras infecciones. Siga todas las instrucciones en la etiqueta de traore prescripcin. No tome esta medicina en c antidades mayores o menores, o por ms tiempo de lo recomendado. Usted puede jayde tofacitinib con o sin comida. Tofacitinib puede disminuir las clulas de la tanesha que ayudan a traore cuerpo a combatir inf ecciones y que ayudan a que traore tanesha coagule. Traore tanesha puede necesitar ser examinada con f recuencia. Las dosis posteriores jm vez puedan ser retrasadas basadas en los resultados de estos exmenes. Traore mdico puede chequear traore piel tambin en busca de signos de cncer; Si usted tiene hepatitis B o C, puede desarrollar sntomas del hgado mientras cruz esta medicina. Traore mdico jm vez quiera evaluar la funcin de traore hgado antes y marie traore tra tamiento con tofacitinib. Guarde en el contenedor original a temperatura ambiente fuera de la humedad y del calor. Qu sucede si me basia alannah dosis? [place] la dosis que jacquie de jayde jones [...] Help al . Qu ariella evitar mientras vince tofacitinib? No reciba alannah vacuna "viva" mientras usa tofacitinib, y evite el contacto con gente que cruz recibido recientemente alannah vacuna viva. Existe la posibilidad de que le pasen el virus. Las vacunas zulema incluyen sarampin, paperas, rubola (MMR), rotavirus, tifoidea, fiebre amar illa, varicela, zster (culebrilla), y la vacuna nasal para la influenza. La toronja y el jugo de toronja pueden tener interacciones con tofacitinib y resultar en ef ectos secundarios no deseados. Hable con traore mdico acerca del uso de productos de toronja. Cules son los efectos secundarios posibles de tofacitinib? Busque atencin mdica de emergencia si usted tiene alguno de estos sntomas de alannah reac margi alrgica: ronchas; dificultad para respirar; hinchazn de la luis a, labios, lengua, o garganta. Infecciones graves, y a veces fatales pueden ocurrir marie el tratamiento con tofacitinib . Deje de jayde esta medicina y llame de inmediato a traore mdico si usted tiene sntomas de infeccin, gt: fiebre, escalofros, sensacin de cansancio, sudores nocturnos; dolor de estmago, prdida del apetito, diarrea, prdida de peso, o un cambio en xin hbitos intestinales; dolor o quemazn al orinar; dolor del cuerpo, dolor de garganta, tos, sntomas de la gripe, llagas en traore boca y gar ganta; dolor punzante del pecho, silbido, sensacin de que le falta aire al respirar, tos con moco o tanesha; o rojez e hinchazn de la piel. Tofacitinib tambin puede causar sntomas severos del hgado. Llame a traore mdico de inme diato si usted tiene cualquiera de estos sntomas hepticos: fiebre baja, picazn, cansancio; dolor en la parte superior del estmago, prdida del apetito; orina oscura, heces fecales de color arcilla; o ictericia (color amarillo de la piel u ojos). Efectos secundarios comunes pueden incluir: dolor de brielle; diarrea; o sntomas de resfro gt nariz congestionada, estornudo, dolor de garganta. Esta lista no menciona todos los efectos secundarios y puede ser que ocurran otros. Llame a traore mdico para consejos mdicos relacionados a efectos secundarios. Usted puede reportar efectos secundarios llamando al FDA al [id number]. Qu otras drogas afectarn a tofacitinib? Muchas drogas pueden tener interacciones con tofacitinib. No todas las interacciones posibl es se enumeran aqu. Dgale a traore mdico acerca de todos xin medicamentos, incluyendo cual quiera que comience o deje de usar marie traore tratamiento con tofacitinib, especialmente: aprepitant, bosentan, haloperidol, imatinib, Chastity's wort, ticlopidine; un antibitico --ciprofloxacin, doxycycline, erythromycin, metronidazole, norfloxacin, tetracycline; un antidepresivo --desipramine, fluoxetine, sertraline; medicina antifngica --clotrimazole, fluconazole, voriconazole; medicina para el corazn o la presin arterial --amiodarone, diltiazem, dronedarone, l idocaine, verapamil; medicamentos para el VIH o SIDA --atazanavir, efavirenz, darunavir cuando se administran con ritonavir, fosamprenavir, nevirapine, saquinavir; medicina para prevenir el rechazo de rgano trasplantado --azathioprine, cyclosporine, tacrolimus; otras medicinas para la artritis --abatacept, adalimumab, anakinra, certolizumab, etaner cept, golimumab, infliximab, rituximab, tocilizumab; medicina para convulsiones --carbamazepine, fosphenytoin, oxcarbazepine, phenobarbital, phenytoin, primidone; medicamento para reducir el cido en el estmago --cimetidine, esomeprazole, omeprazol e; o medicina para tuberculosis --rifabutin, rifampin, rifapentine. Esta lista no est completa y muchas otras drogas pueden interactuar con tofacitinib. [place] incluye las medicinas que se obtienen con o sin receta, vitaminas, y productos herbarios. D keena alannah lista de todas xin medicinas a cualquier profesional de la anil que lo atienda. Dnde puedo obtener ms informacin? Traore farmacutico le puede jesus ms informacin acerca de tofacitinib. Recuerde, mantenga sta y todas las otras [...] consumidor en l os [place] [facility] [place] y por lo cual [facility] no certifica que el uso fue ra [...] con traore mdico, enfermera, o farmacutico. Copyright [id number] [employer]. Version: 1.02. Revision date: 03/18/2014. Esta informacin no reemplaza la consulta mdneal. [facility] niega toda gar anta y responsabilidad por el uso de esta informacin. Versin del contenido: [id number] documented in this encounter Progress Notes Afshan Wright FNP - 11/29/2015 10:23 AM PDTFormatting of this note might be differe nt from the original. RHEUMATOLOGY NEW PATIENT CONSULT This consultation was requested by: No Referring Provider Per Patient NO REFERRING PROVIDER PER PT fax: CC: Chief Complaint Patient presents with RA - Rheumatoid arthritis New patient consultation Establish care HPI: Ms. Remy- is a 35 y.o. female, here to establish care for RA.. She wasn't diagnosed w/ RA until 2006 though she recalls having sx up to 10 mo before. Symptoms began in her feet and they have been some of the worst of her pain. There is no Fhx of RA. She uses condoms consistently for control and does not desire future . She has been on methotrexate since 2008. She has issues w/ nausea and vertigo the day afte r injecting but otherwise tolerates it. As her disease advanced multiple drugs were tried either w/ se or lack of efficacy includin g: Adalimumab (failure after 6 years of use) , hydroxychloroquine, lefunomide and SSZ. She has been on Xeljanz for the last 6 mo w/o SE but also w/o improvement of sx. Works part-time at [employer]. Pain has been a limiting factor. Right ankle and right MTP heads hurt the most and swell. Left knee also swells regularly. Has walked up to 30 minutes 3x/ wkly but not recently d/t pain. Last 2 mo. ROS: General: Intermittent fever, weight loss >10#, [...] vomiting, constipation, diarrhea, m dedra. 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 Neuro: Dizziness, loss of [...] sleep disturbance, probl ems with social activities. PMH: Past Medical History Diagnosis Date 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 rheumatoid arthritis (HCC) PSH: Past Surgical History Procedure Laterality Date Cholecystectomy 2001 Meds: Current Outpatient Prescriptions Medication Sig ibuprofen (ADVIL) 100 mg oral tablet Take 100 mg by mouth every six hours as needed. methotrexate, PF, 25 mg/mL injection solution Inject 1 mL under the skin (SUBC) every s even days. predniSONE 5 mg oral tablet Take 1 tablet by mouth once daily. tofacitinib (XELJANZ) 5 mg oral tablet Take 1 tablet by mouth two times daily. No current facility-administered medications for this visit. Allergies: Review of patient's allergies indicates no known allergies. Social History: Dominga reports that she has never smoked. She does not have any smokeless to bacco history on file. Vaccinations: There is no immunization history on file for this patient. FH: family history includes Non-contributory in her brother, father, mother, and sister. Rapid 3 MHAQ: 4.3 (11/29/15 1000) PAIN LEVEL: 7 (11/29/15 1000) GLOBAL ASSESSMENT: 7 (11/29/15 1000) RAPID 3: 6.1 (11/29/15 1000) Exam: Vital Signs: BP 117/69 | Pulse 81 | Ht 1.524 m (5') | Wt 76.204 kg (168 lb) | BMI 32. 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 Right anterior calf moderate varicosity Skin: no abnormalities Neuro: CN intact, sensory exam intact, strength full, reflexes normal and symmetric Labs: Lab Results Component Value Date NA 137 11/29/2015 K 3.8 11/29/2015 CL 102 11/29/2015 BICARB 26 11/29/2015 BUN 12 11/29/2015 CR 0.56 11/29/2015 GLU 91 11/29/2015 CA 9.3 11/29/2015 AST 30 11/29/2015 ALT 57 11/29/2015 AP 109 11/29/2015 TBILI 0.6 11/29/2015 TP 8.3 11/29/2015 ALB 4.0 11/29/2015 ANIONGAP 9 11/29/2015 ANIONALBCOR 9 11/29/2015 Lab Results Component Value Date WBC 8.64 11/29/2015 HB 12.3 11/29/2015 HCT 37.2 11/29/2015 PLT 255 11/29/2015 MCV 88.8 11/29/2015 RDW 44.2 11/29/2015 Lab Results Component Value Date ESR 29* 11/29/2015 Lab Results Component Value Date CRP 14.0* 11/29/2015 Radiology: HAND 1 VIEWS BILATERAL Date Value Ref Range Status 11/29/2015 Final STUDY: HAND 1 VIEW BILATERAL 11/29/15 12:11:00 HISTORY: Rheumatoid arthritis. COMPARISON: None. FINDINGS: Right hand: Severe radiocarpal and ulnocarpal joint space narrowing is present, with small subchondral lucencies in the distal radius and proximal lunate and triquetrum. No erosion is otherwise observed. DRUJ degenerative spurring is present. The other joint spaces are maintained. Left hand: There is severe radiocarpal and moderate ulnocarpal joint space narrowing, with subchondral lucencies. No convincing erosion is observed. DRUJ degenerative spurring is present. The joints are otherwise maintained. There is no fracture, malalignment, or soft tissue abnormality in either hand. IMPRESSION: Bilateral radiocarpal and ulnocarpal joint space narrowing. Underlying lucencies likely represent cysts, less likely erosions. Mild bilateral DRUJ degenerative change. Attending Radiologists: EDIN DIEGO MD Author: EDIN DIEGO MD I personally reviewed the images and, if necessary, edited the report. I agree with the report as now presented. Final/Electronically signed / EDIN DIEGO 11/29/2015 12:42 PM FEET 2 VIEWS BILATERAL Date Value Ref Range Status 11/29/2015 Final STUDY: FEET 2 VIEWS BILATERAL 11/29/15 12:11:00 HISTORY: Rheumatoid arthritis. COMPARISON: None. FINDINGS: Right foot: There are marginal erosions along the lateral aspects of the third and fifth metatarsal heads. Subtle lucencies at the great toe IP joint likely represent cysts. There is a circumscribed, non aggressive-appearing, lucent lesion of the mid diaphysis of the fifth metatarsal measuring up to 18 mm long. Mild talonavicular narrowing is noted medially. Mild first MTP degenerative spurring is evident. Joint spaces are otherwise relatively maintained. Left foot: There is a large erosion of the lateral aspect of the fifth metatarsal head. No other imaging erosion is observed. Dorsal talonavicular capsular spur is noted. Mild first MTP degenerative spurring is present. Mild talonavicular narrowing is noted medially. No fracture, malalignment, or soft tissue abnormality is seen in either foot. IMPRESSION: Bilateral MTP erosions. Bilateral mild talonavicular joint space narrowing. Incidental lesion of the right fifth metatarsal, most likely a benign enchondroma. Attending Radiologists: EDIN DIEGO MD Author: EDIN DIEGO MD I personally reviewed the images and, if necessary, edited the report. I agree with the report as now presented. Final/Electronically signed / EDIN DIEGO 11/29/2015 12:39 PM Impression: This is a 35 y.o. female, here for evaluation of seropositive, erosive RA. The problem list includes: ESL; lives in [place], [place] and doesn't drive; intolerant to man y medications. Recommendations: 1. Labs today: CMP, CBC, ESR/CRP, Quantiferon Gold, HBsAg, HBsAb, HBcAb, HCV ab. 2. Immunizations: Pneumococcal 13 today. Will need 23 at 6 mo. 3. As her disease activity is high and she is on methotrexate 25mg SQ/ wkly and Xeljanz wit h intolerance to hydroxychloroquine, lefunomide and SSZ and loss of efficacy w/ adalimumab a fter 6 years of use. We will use low dose prednisone in the interim to ameliorate some of h er pain and swelling and allow her to function while we are awaiting results. Educated rega rding safe use and possible side effects as well as precautions. 4. Clinical reeval at 1 mo. Sooner if needed. She is to call in the interim w/ any questi ons or concerns. [facility] [address] [place] [address] Mailcode: [id number] [facility], 4th [facility] [id number] Display Progress Note in [employer]: No documented in t his encounter Plan of Treatment Not on filedocumented as of this encounter Results HCG QUAL, URINE (11/29/2015 12:55 PM PDT) [...] [facility] | [address] | [place] [address] | | | SERVICES, CORE | PARK [...] | | | [place] | | + +--------+ + + + + + | Specimen | + + | Blood - Blood | + + + + + + + | Performing | Address | City/State/Zipcode | Phone Number | | Organization | | | | + + + + + | [facility] - | [address] | [place] [address] | | | [facility] | | | | + + + [...] by | | | | | | [address] | | | | | | [address], [place] | | | | | | [id number] | | | | | | [phone].[employer]lab. | | | | | | Shan [...] [facility] | [address] | [place], [place] | | | [facility] | | [address] | | + + + + + [...] modified from | [facility] | | original pega developer's approved specifications. The performance | LABORATORY | | of the HOSE MENDER HIV Combo test, with or without confirmation, was not | SERVICES, | | tested in pediatric patients less than 2 years of age. [facility] | SPECIAL IMM + | | guidelines [...] | + + + + + | [facility] | [address] | [place] [address] | | | SERVICES, SPECIAL | [address] | | | | IMM + [...] + | [facility] - | [address] | [place] [address] | | | [place] | | | [...] + | [facility] - | [address] | [place] [address] | | | [place] | | | [...] + | [facility] - | [address] | [place] [address] | | | [facility] | | | | + + + [...] + | [facility] - | [address] | [place] [address] | | | [place] | | | [...] | + + + + + | [facility] | [address] | [place] [address] | | | [place] | | | | + + + [...] | | | LABORATORY | | | [facility] | | | SERVICES, | | | [...] | + + + + + | [facility] | [address] | [place] [address] | | | SERVICES, CORE | PARK [...] and new reporting units as of | [facility] | | 10/07/2013. | LABORATORY | | | SERVICES, CORE | + + + + + + + + | Performing | Address | City/State/Zipcode | Phone Number | | Organization | | | | + + + + + | [facility] | [address] | [place] [address] | | | SERVICES, CORE | PARK [...] | + + + + + | [facility] | [address] | [place] [address] | | | SERVICES, CORE | [address] | | | + + + + + X-RAY HAND 1 VIEWS BILATERAL (11/29/2015 12:32 [...] | | + +---------+ + + | [facility] | | | | | [facility] | | | | + +---------+ + + X-RAY FEET 2 VIEWS BILATERAL (11/29/2015 12:32 PM PDT) + + + + + + | Component | Value | Ref Range | Performed | Pathologist | | | | | At | Signature | + + + + + + | FEET 2 | STUDY: FEET 2 VIEWS | | | | | VIEWS | BILATERAL 11/29/15 | | | | | BILATERAL | 12:11:00 HISTORY: | | | | | | Rheumatoid arthritis. | | | | | | COMPARISON: None. | | | | | | FINDINGS:Right foot: | | | | | | There are marginal | | | | | | erosions along the | | | | | | lateral aspects of the | | | | | | thirdand fifth | | | | | | metatarsal heads. | | | | | | Subtle lucencies at | | | | | | the great toe IP joint | | | | | | likelyrepresent cysts. | | | | | | There is a | | | | | | circumscribed, | | | | | | nonaggressive-appearing, | | | | | | lucentlesion of the mid | | | | | | diaphysis of the fifth | | | | | | metatarsal measuring up | | | | | | to 18 mm long. Mild | | | | | | talonavicular narrowing | | | | | | is noted medially. | | | | | | Mild first MTP | | | | | | degenerativespurring is | | | | | | evident. Joint spaces | | | | | | are otherwise relatively | | | | | | maintained. Left foot: | | | | | | There is a large erosion | | | | | | of the lateral aspect | | | | | | of the fifthmetatarsal | | | | | | head. No other imaging | | | | | | erosion is observed. | | | | | | Dorsal | | | | | | talonavicularcapsular | | | | | | spur is noted. Mild | | | | | | first MTP degenerative | | | | | | spurring is present. | | | | | | Mildtalonavicular | | | | | | narrowing is noted | | | | | | medially. No fracture, | | | | | | malalignment, or soft | | | | | | tissue abnormality is | | | | | | seen in either foot. | | | | | | IMPRESSION: Bilateral | | | | | | MTP erosions. | | | | | | Bilateral mild | | | | | | talonavicular joint | | | | | | space narrowing. | | | | | | Incidental lesion of the | | | | | | right fifth metatarsal, | | | | | | most likely a | | | | | | benignenchondroma. | | | | | | Attending [...] | | | | | | 11/29/2015 12:39 PM | | | | + + + + + + + + | Specimen | + + | | + + + +---------+ + + | Performing | Address | City/State/Zipcode | Phone Number | | Organization | | | | + +---------+ + + | [facility] | | | | | RADIOLOGY | | | | + +---------+ + + documented in this encounter Visit Diagnoses + + | Diagnosis | + + | Long-term use of high-risk medication - Primary | + + | 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 rheumatoid arthritis (HCC) Rheumatoid arthritis | + + documented in this encounter
--- OUTSIDE RECORDS SUMMARY | ~2020-01-05 | XMS | Encounter Summary ---
Demographics + + + | Address | [address] | | | [place] [address] | + + + | Home Phone | | + + + | Preferred Language | Unknown | + + + | Marital Status | | + + + | Orthodox Affiliation | Unknown | + + + | Race | White | + + + | Ethnic Group | or | + + + Author + + + | Author | [facility] | + + + | Organization | [facility] | + + + | Address | Unknown | + + + | Phone | Unavailable | + + + Support + + +---------+ + | Name | Relationship | Address | Phone | + + +---------+ + | Brittanie Remy | ECON | Unknown | | + + +---------+ + Care Team Providers + +------+ + | Care System Configuration Specialist Name | Role | Phone | + +------+ + PCP | Unavailable | + +------+ + Reason for Visit + +--------+ + | Reason | Onset | Comments | | | Date | | + +--------+ + | Foot pain | 10/31/ | | | | 2017 | | + +--------+ + | Foot swelling | 10/31/ | | | | 2017 | | + +--------+ + Encounter Details +--------+ + + + + | Date | Type | Department | Care Team | Description | +--------+ + + + + | 10/31/ | Telephone | Rheumatology at | Afshan Wright | Foot pain; Foot | | 2018 | | Physicians [facility] [address] | swelling | | | | [address] | [facility] | | | | | Loop Physician's | [place], [place] | | | | | [address], [address]th Floor | [address] | | | | | [place], [place] | [phone] | | | | | [address] | | | | | | [phone] | | | +--------+ + + + [...] this encounter Miscellaneous Notes Telephone Encounter - Afshan Wright FNP - 11/01/2017 11:41 AM PDTSpoke to pt w/ son translating. Arthritis flare of the right ankle x 3d. Difficult to ambulate +swelling. No redness or warmth. No other joints affected. Feels similar to other flares. No systemic sx. No misses of medication. Plan: 1. Rx prednisone 5mg 2/d for 7d. Ed re use, expectations, SE and effect on BG. 2. If no improvement or worse needs to be seen. SUAD Nunn ARNP RHEUMATOLOGY FACULTY [address] Mailcode: [id number], [address] Floor [facility] [id number] elephone Patrice Wang - 10/31/2017 5:27 PM PDTPt called saying that she is having a flare. Says 3 days ago her right foot and ankle started to swell and become painful. She is havin g trouble walking and it seems to be getting worse. Would like a call back as soon as possi ble. Routing to [facility] docu mented in this encounter Plan of Treatment Not on filedocumented as of this encounter Visit Diagnoses Not on filedocumented in this encounter"
--- OUTSIDE RECORDS SUMMARY | ~2020-01-05 | XMS | Encounter Summary ---
Demographics + + + | Address | [address] | | | [place] [address] | + + + | Home Phone | | + + + | Preferred Language | Unknown | + + + | Marital Status | | + + + | Uatsdin Affiliation | Unknown | + + + | Race | White | + + + | Ethnic Group | or | + + + Author + + + | Author | [facility] | + + + | Organization | [facility] | + + + | Address | Unknown | + + + | Phone | Unavailable | + + + Support + + +---------+ + | Name | Relationship | Address | Phone | + + +---------+ + | Brittanie Remy | ECON | Unknown | | + + +---------+ + Care Team Providers + +------+ + | Care Truck Mechanic Name | Role | Phone | + +------+ + | Stephanie Miller MD | PCP | | + +------+ + Encounter Details +--------+ + + + + | Date | Type | Department | Care Team | Description | +--------+ + + + + | 05/22/ | Pharmacy | [facility] | | | | 2019 | Visit | [address] | | | | | | [facility] [address] | | | | | | [place] [address] | | | | | | [phone] | | | +--------+ + + + [...]
--- OUTSIDE RECORDS SUMMARY | ~2020-01-05 | XMS | Encounter Summary ---
Demographics + + + | Address | [address] | | | [place] [address] | + + + | Home Phone | | + + + | Preferred Language | Unknown | + + + | Marital Status | | + + + | Presybeterian Affiliation | Unknown | + + + | Race | White | + + + | Ethnic Group | or | + + + Author + + + | Author | [facility] | + + + | Organization | [facility] | + + + | Address | Unknown | + + + | Phone | Unavailable | + + + Support + + +---------+ + | Name | Relationship | Address | Phone | + + +---------+ + | Brittanie Remy | ECON | Unknown | | + + +---------+ + Care Team Providers + +------+ + | Care Forensic Psychologist Name | Role | Phone | + +------+ + | Isacc Chi | PCP | | + +------+ + Reason for Visit + +--------+ + | Reason | Onset | Comments | | | Date | | + +--------+ + | Medication | 04/25/ | Orencia | | | 2015 | | + +--------+ + Encounter Details +--------+ + + + + | Date | Type | Department | Care Team | Description | +--------+ + + + + | 04/25/ | Telephone | Rheumatology at | Kyle Afshan | Medication (Orencia) | | 2016 | | Physicians [facility] [address] | | | | | [address] | [address] | | | | | Loop Physician's | [place], [place] | | | | | [address], [address]th Floor | [address] | | | | | [place], [place] | [phone] | | | | | [address] | | | | | | [phone] | | | +--------+ + + + [...] this encounter Miscellaneous Notes Telephone Encounter - Vinay Florian PharmD - 04/25/2016 11:52 AM PST1. Faxed over signed pr escription to [facility] in AM on 04/25/16 2. Sent [facility] an email inquiring why the patient was denied further patient assistanceElectro nically signed by Vinay Florian PharmD at 04/25/2016 11:54 AM PSTTelephone Encounter - Ofelia Marley res, MA - 04/25/2016 10:27 AM PSTReason for call: Slovak interrupter called stating that [facility] delivery assistant program called her informing her heidi t she will no longer receive her medication. Message is being routed to Vinay Pharmacist for review. documented in this encounter Plan of Treatment Not on filedocumented as of this encounter Visit Diagnoses Not on filedocumented in this encounter"
--- OUTSIDE RECORDS SUMMARY | ~2020-01-05 | XMS | Encounter Summary ---
Demographics + + + | Address | [address] | | | [place] [address] | + + + | Home Phone | | + + + | Preferred Language | Unknown | + + + | Marital Status | | + + + | Catholic Affiliation | Unknown | + + [...] Team Providers + +------+ + | Care Toaster Operator Name | Role | Phone | [...] | | | arthritis | [address] | | | | | with | St | [address] | | | | | rheumatoid | Rajesh, | [place] [place] | | | | | factor, | [place] [address] | [place], [place] | | | | | unspecified | Phone: | [phone] | | | | | Procedures | [phone] | Phone: | | | | | [place] EST | Fax: | [phone] | | | | | PATIENT | [phone] | Fax: | | | | | LEVEL V | | [phone] | +--------+--------+ + + + + Encounter Details +--------+---------+ + + + | Date | Type | Department | Care Team | Description | +--------+---------+ + + + | 04/12/ | Office | Rheumatology at | Afshan Wright | 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 | | 2018 | Visit | Physicians [place] | [place], [address] | rheumatoid arthritis | | | | [address] | [address] | ([facility]) (Primary Dx); | | | | Loop Physician's | [place], [place] | Long-term use of | | | | [address], 4th Floor | [address] | high-risk | | | | [place], [place] | [phone] | medication; Vitamin | | | | [address] | | D deficiency | | | | [phone] | | | +--------+---------+ + + + [...] + + + | Blood Pressure | 134/78 | 08/15/2017 1:32 PM | | | | | PDT | | + + + + + | Pulse | 107 | 08/15/2017 1:32 PM | | | | | PDT [...] + + + + | Weight | 74.5 kg (164 lb 3.9 | 08/15/2017 1:32 PM | | | | oz) | PDT | | + + + + + | Height | - | - | | + + + + + | Body Mass Index | 30.03 | 07/30/2016 1:51 PM | | | | | PDT | | + + + + + documented in this encounter Progress Notes Afshan Wright FNP - 08/15/2017 1:30 PM PDTFormatting of this note might be differe nt from the original. Progress Note Clinic: Rheumatology Reason for follow-up: Chief Complaint Patient presents with RA - Rheumatoid arthritis Medication management Follow-up visit Ms. Sandrita Queen was last January 31, 2017. Travelling [facility] [place]. With friend MIKE who is translating as well. Consistent use of methotrexate and Orencia. "I've been feeling good. Gets some joint pain w/ cold weather." Only problem she has is with her right foot. She has had left 1st MTP and left ankle swelling x 1wk. Has had episodes of tongue numbness, eye pain/ vision issues. EMS 20min (isolated to hands). ROS: Please see scanned intake document. Detail reviewed face to face w/ patient. Relevant ROS detailed in HPI. Past Medical History: Past Medical History: Diagnosis Date 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 rheumatoid arthritis (HCC) Medications: Current Outpatient Prescriptions Medication Sig abatacept (ORENCIA) 125 mg/mL subcutaneous syringe Inject 125 mg under the skin (SUBC) every seven days. LABEL IN CANADIAN. DISCONTINUE ALL XELJANZ REFILLS. ergocalciferol (VITAMIN D2) 50,000 unit oral capsule Take 1 capsule by mouth twice week ly. LABEL IN CANADIAN. DOSE ADJUSTMENT. Indications: Vitamin D Deficiency (High Dose Therap y) folic acid 1 mg oral tablet Take 1 tablet by mouth once daily. MUST BE TAKEN WHEN USING METHOTREXATE (LABEL IN CANADIAN). ibuprofen (ADVIL) 100 mg oral tablet Take 100 mg by mouth every six hours as needed. methotrexate 25 mg/mL injection solution Inject 0.8 mL under the skin (SUBC) every nelson n days. LABEL IN CANADIAN. DOSE DECREASE 02/01/17. Indications: Rheumatoid Arthritis No current facility-administered medications for this visit. Allergies: Patient has no known allergies. Social History: Navjot reports that she has never smoked. She has never used smokeless tobac co. Family History: Family history includes Non-contributory in her brother, father, mother, an d sister. Physical Exam: BP 134/78 | Pulse 107 | Wt 74.5 kg (164 lb 3.9 oz) | BMI 30.03 kg/(m^2) Pain Score: 7 Rapid 3 MHAQ: 1.0 (08/15/17 1300) PAIN LEVEL: 5 (08/15/17 1300) GLOBAL ASSESSMENT: 5 (08/15/17 1300) RAPID 3: 3.67 (08/15/17 1300) Gen: Well nourished, well developed, in NAD HEENT: unremarkable Ext: No clubbing, cyanosis, or edema M/S: LARIOS 28; +left ankle TTP; b/l wrists fixed deformity limiting flex/ext/ ab/ad Skin: moderate varicosities left LE Neuro: normal Labs: Lab Results Component Value Date WBC 11.23 (H) 08/15/2017 RBC 4.41 08/15/2017 HCT 39.0 08/15/2017 HB 12.9 08/15/2017 MCV 88.4 08/15/2017 MCHC 33.1 08/15/2017 PLT 224 08/15/2017 NEUTROPERC 75.6 (H) 08/15/2017 LYMPHPERC 15.9 (L) 08/15/2017 MONOPERC 6.1 08/15/2017 EOSPERC 1.4 08/15/2017 BASOPERC 0.6 08/15/2017 NEUTROPHILCO 8.48 (H) 08/15/2017 GLU 240 (H) 08/15/2017 BUN 8 08/15/2017 CR 0.41 (L) 08/15/2017 TP 8.2 08/15/2017 ALB 3.7 08/15/2017 CA 9.4 08/15/2017 TBILI 0.4 08/15/2017 AP 156 (H) 08/15/2017 AST 83 (H) 08/15/2017 NA 135 (L) 08/15/2017 K 3.5 08/15/2017 CL 101 08/15/2017 BICARB 27 08/15/2017 ALT 117 (H) 08/15/2017 Lab Results Component Value Date ESR 29 08/15/2017 ESR 22 01/31/2017 ESR 23 09/27/2016 Lab Results Component Value Date XWMS13KSFKWP <4.2 08/15/2017 Results for SANDRITA QUEEN NAVJOT MARGRET ( ) as of 08/25/2017 14:32 Ref. [...] and feet 11/2015 ([facility]) Erosion: +feet Functional Assessment: [facility] FLOWSHEET 01/31/2017 01/31/2017 08/15/2017 08/15/2017 RAPID 3 3.67 3.67 Total Tender Joints 7 8 Total Swollen Joints 6 1 ESR 22 29 Global Health Value 4 5 DAS28 Score 4.4 4.3 Disease Activity Level Moderate Moderate Plan: 1. Labs today: CBC, CMP, ESR and vitamin D 25-OH. 2. AST/ALT and alk phos continue to rise. Will withdrawal MTX and continue abatacept. 3. Request PCP to check LFT's at 2, 4 and 6wks and forward results. 4. Restart ergocalciferol 50,000IU/wk. She needs daily 3,000IU concurrently which I will d iscuss with her next visit. 5. Her random blood glucose is 240 which means she has type 2 diabetes. As far as I know t his will be a new dx for her. Unfortunately it may be more of the contributing factor for L FT elevation but it's hard to know. We have informed her to f/u w/ her PCP to discuss this further. 6. She reports some highly unusual sx today intermittent tongue numbness, eye pain and visi on loss. It's my opinion she should have a neurological w/u 7. Clinical reeval at 4mo. Sooner if needed. SUAD NUNN RHEUMATOLOGY FACULTY [facility] [facility] Mailcode: Op09 [facility], 4th Floor [facility] [address] Display Progress Note in MyChart: No documented in t his encounter Plan of Treatment Not on filedocumented as of this encounter Results VITAMIN D, 25-HYDROXY, SERUM (08/15/2017 2:18 PM [...] [facility] | [address] | [place] [address] | | | SERVICES, CORE | CHARISSE [...] | | | LABORATORY | | | LAO | | | SERVICES, | | | [...] | Adult glucose reference range change effective 712-17. GFR is | [facility] | | estimated [...] [facility] | [address] | [place] [address] | | | SERVICES, CORE | PARK [...] [facility] | [address] | [place] [address] | | | [address] | CHARISSE [...]
--- OUTSIDE RECORDS SUMMARY | ~2020-01-05 | XMS | Encounter Summary ---
Demographics + + + | Address | [address] | | | [place] [address] | + + + | Home Phone | | + + + | Preferred Language | Unknown | + + + | Marital Status | | + + + | Caodaism Affiliation | Unknown | + + + | Race | White | + + + | Ethnic Group | or | + + + Author + + + | Author | [facility] | + + + | Organization | [facility] | + + + | Address | Unknown | + + + | Phone | Unavailable | + + + Support + + +---------+ + | Name | Relationship | Address | Phone | + + +---------+ + | Brittanie Remy | ECON | Unknown | | + + +---------+ + Care Team Providers + +------+ + | Care Supervisor Waterproofing Name | Role | Phone | + +------+ + | Isacc Chi | PCP | | + +------+ + Encounter Details +--------+------+ + + + | Date | Type | Department | Care Team | Description | +--------+------+ + + + | 01/31/ | Lab | Laboratory at [facility] | | Long-term use of | | 2016 | | [address] | | high-risk | | | | Loop Physician's | | medication; | | | | [address], 3rd floor | | 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 | | | | [place], [place] | | rheumatoid arthritis | | | | [address] | | ([facility]); Vitamin D | | | | [phone] | | deficiency | +--------+------+ + + [...] CBC AND AUTO DIFF | Routin | 01/31/2017 | Long-term use of | Results for this | | | e | 2:35 PM | high-risk medication | procedure are in the | | | | PDT | | results section. | + +--------+ + + + | CBC, WITH | Routin | 01/31/2017 | Long-term use of | Results for this | | DIFFERENTIAL | e | 2:35 PM | high-risk medication | procedure are in the | | | | PDT | | results section. | + +--------+ + + + | VITAMIN D, | Routin | 01/31/2017 | Vitamin D | Results for this | | 25-HYDROXY, SERUM | e | 2:35 PM | deficiency | procedure are in the | | | | PDT | | results section. | + +--------+ + + + | COMPLETE METABOLIC | Routin | 01/31/2017 | Long-term use of | Results for this | | SET | e | 2:35 PM | high-risk medication | procedure are in the | | (NA,K,CL,CO2,BUN,CRE | | PDT | | results section. | | AT,GLUC,CA,AST,ALT,B | | | | | | ALEN TOTAL,ALK | | | | | | PHOS,ALB,PROT TOTAL) | | | | | + +--------+ + + + | C-REACTIVE PROTEIN | Routin | 01/31/2017 | 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 | Results for this | | | e | 2:35 PM | rheumatoid arthritis | procedure are in the | | | | PDT | (HCC) | results section. | + +--------+ + + + | SEDIMENTATION RATE | Routin | 01/31/2017 | 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 | Results for this | | | e | 2:35 PM | rheumatoid arthritis | procedure are in the | | | | PDT | (HCC) | results section. | + +--------+ + + + documented in this encounter Results CBC AND AUTO DIFF (01/31/2017 2:35 PM PDT) + + + + + + | Component | Value | Ref Range | Performed | Pathologist | | | | | At | Signature | + + + + + + | WHITE CELL | 9.55 | 3.50 - 10.80 | [facility] | | | COUNT | | K/cu mm | LABORATORY | | | | | | SERVICES, | | | | | | CORE | | + + + + + + | RED CELL | 4.46 | 4.00 - 5.20 | [facility] | | | COUNT | | M/cu mm | LABORATORY | | | | | | SERVICES, | | | | | | CORE | | + + + + + + | HEMOGLOBIN | 13.2 | 12.0 - 16.0 | [facility] | | | | | g/dL | LABORATORY | | | | | | SERVICES, | | | | | | CORE | | + + + + + + | HEMATOCRIT | 39.4 | 36.0 - 46.0 % | [facility] | | | | | | LABORATORY | | | | | | SERVICES, | | | | | | CORE | | + + + + + + | MCV | 88.3 | 80.0 - 96.0 fL | [facility] | | | | | | LABORATORY | | | | | | SERVICES, | | | | | | CORE | | + + + + + + | MCHC | 33.5 | 33.0 - 35.5 | [facility] | | | | | g/dL | LABORATORY | | | | | | SERVICES, | | | | | | CORE | | + + + + + + | RDW SD | 41.8 | 35.1 - 46.3 fL | [facility] | | | | | | LABORATORY | | | | | | SERVICES, | | | | | | CORE | | + + + + + + | PLATELET | 233 | 150 - 400 K/cu | [facility] | | | COUNT | | mm | LABORATORY | | | | | | SERVICES, | | | | | | CORE | | + + + + + + | MPV | 12.5 (H) | 9.7 - 12.3 fL | [facility] [...] + + + + | NEUTROPHIL | 72.7 (H) | 50.0 - 70.0 % | [facility] | | | % | | | LABORATORY | | | | | | SERVICES, | | | | | | CORE | | + + + + + + | LYMPHOCYTE | 20.6 | 18.0 - 42.0 % | [facility] | | | % | | | LABORATORY | | | | | | SERVICES, | | | | | | CORE | | + + + + + + | MONOCYTE % | 5.1 | 3.5 - 9.0 % | [facility] | | | | | | LABORATORY | | | | | | SERVICES, | | | | | | CORE | | + + + + + + | EOS % | 0.9 (L) | 1.0 - 3.0 % | [facility] [...] + + + + | NEUTROPHIL | 6.93 | 1.80 - 7.70 | [facility] | | | # | | K/cu mm | LABORATORY | | | | | | SERVICES, | | | | | | CORE | | + + + + + + | LYMPHOCYTE | 1.97 | 1.00 - 4.80 | [facility] | [...] + + + | EOS # | 0.09 | 0.00 - 0.50 | [facility] | [...] | IG# | 0.02 | 0.00 - 0.03 | [facility] | [...] [facility] | [address] | [place] [address] | | | SERVICES, CORE | [address] | | | + + + + + VITAMIN D, 25-HYDROXY, SERUM (01/31/2017 2:35 PM [...] [facility] | [address] | [place] [address] | | | SERVICES, CORE | PARK [...] [facility] | [address] | [place] [address] | | | SERVICES, CORE | PARK [...] | | | LABORATORY | | | CYMRAES | | | SERVICES, | | | [...] | + + + + + | [facility] | [address] | [place] [address] | | | SERVICES, CORE | CHARISSE [...] + + + + + | [facility] | [address] | [place] [address] | | | SERVICES, CORE | [address] [...]
--- OUTSIDE RECORDS SUMMARY | ~2020-01-05 | XMS | Encounter Summary ---
Demographics + + + | Address | [address] | | | [place] [address] | + + + | Home Phone | | + + + | Preferred Language | Unknown | + + + | Marital Status | | + + + | Cheondoism Affiliation | Unknown | + + + | Race | White | + + + | Ethnic Group | or | + + + Author + + + | Author | [facility] | + + + | Organization | [facility] | + + + | Address | Unknown | + + + | Phone | Unavailable | + + + Support + + +---------+ + | Name | Relationship | Address | Phone | + + +---------+ + | Brittanie Remy | ECON | Unknown | | + + +---------+ + Care Team Providers + +------+ + | Care Embedded Software Manager Name | Role | Phone | + +------+ + | Isacc Chi | PCP | | + +------+ + Reason for Visit + +--------+ + | Reason | Onset | Comments | | | Date | | + +--------+ + | Lab Results | 02/01/ | | | | 2016 | | + +--------+ + Encounter Details +--------+ + + + + | Date | Type | Department | Care Team | Description | +--------+ + + + + | 02/01/ | Telephone | Rheumatology at | Afshan Wright | Lab Results | | 2017 | | Physicians [place], CUSTOMS ENTRY CLERK [address] | | | | | [address] | [facility] | | | | | Loop Physician's | [place], [place] | | | | | [address], [address]th Floor | [address] | | | | | [place], [place] | [phone] | | | | | [address] | | | | | | [phone] | | | +--------+ + + + [...] this encounter Miscellaneous Notes Telephone Encounter - Jessica Aleman LPN - 02/01/2017 4:31 PM PDTCalled and spoke with vikas gonzales regarding below information with a greek interpretor. Patient was agreeable and had minimal questions that were clarified with interpretor. No further actions at this time. Caroline sing encounter. eleph one Encounter - Jessica Aleman LPN - 02/01/2017 4:31 PM PDTFormatting of this note might b e different from the original. Afshan Wright, CUSTOMS ENTRY CLERK Jessica Aleman LPN Please call patient. Vitamin D remains extremely low- I'm going to send over the weekl y vitamin D again but will have her take it twice weekly instead of just once weekly. Ask that she take it with a fatty snack like cheese or whole milk- it will help absorption. He r liver function is stable but remains high. We need to cut her methotrexate back from inj ecting 1 full mL weekly to injecting 0.8mg/ wkly. She needs to get the labs done in 2 week s and then every 2 wks after to continue to monitor liver. We will call when results are b ack. documented in this en counter Plan of Treatment Not on filedocumented as of this encounter Visit Diagnoses Not on filedocumented in this encounter"
--- OUTSIDE RECORDS SUMMARY | ~2020-01-05 | XMS | Encounter Summary ---
Demographics + + + | Address | [address] | | | [place] [address] | + + + | Home Phone | | + + + | Preferred Language | Unknown | + + + | Marital Status | | + + + | Anglican Affiliation | Unknown | + + + [...] Team Providers + +------+ + | Care Data Reviewer Name | Role | Phone | + [...] Encounter | Radiology at [facility] | A, SUBSTATION OPERATOR [address] | | | | | [address] | [address] | | | | | Loop Physician's | [place], [place] | | | | | [address], [address] Floor | [address] | | | | | [place], [place] | [phone] | | | | | [address] | | | | | | [phone] | | | +--------+ + + + [...] | | | | | (LABEL IN SAMI). | | | | | + + [...] + +--------+ + + + | X-RAY ANKLE 2 VIEWS | Routin | 11/21/2017 | Acute right ankle | Results for this | | RIGHT | e | 1:54 PM | pain | procedure are in the | | | | PDT | | results section. | + +--------+ + + + documented in this encounter Results X-RAY ANKLE 2 VIEWS RIGHT (11/21/2017 1:54 [...] Note | + + | Service Account, Xsilon Res In Interface - 11/21/2017 2:58 PM [...] MD 11/21/2017 2:33 PM Dictation initiated: Delia Pittman | | MD Keith 11/21/2017 2:08 PM | |No acute fracture. No radiographic evidence of rheumatoid arthritis within the visualized p ortions of the ankle. | | | |Mild bimalleolar soft tissue swelling. | | | |I have personally reviewed the images and, if necessary, edited the report. I agree with brittni pittman report as now presented. | | | |Final signature: Atul iFgueroa MD 11/21/2017 2:51 PM | |Preliminary: Delia [...] Acute right ankle pain | + + documented in this encounter"
--- OUTSIDE RECORDS SUMMARY | ~2020-01-05 | XMS | Encounter Summary ---
Demographics + + + | Address | [address] | | | [place] [address] | + + + | Home Phone | | + + + | Preferred Language | Unknown | + + + | Marital Status | | + + + | Anabaptism Affiliation | Unknown | + + + [...] Team Providers + +------+ + | Care Dental Assisting Instructor Name | Role | Phone | + [...] Follow-up visit | | + + + Encounter Details +--------+---------+ + + + | Date | Type | Department | Care Team | Description | +--------+---------+ + + + | 09/27/ | Office | Rheumatology at | Darriusdee deeAfshan mcdermott | 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 | | 2017 | Visit | Physicians Sumeet Buchanan, SLIP TENDER [address] | rheumatoid arthritis | | | | [address] | [address] | ([facility]) (Primary Dx); | | | | Loop Physician's | [place], [place] | Long-term use of | | | | Pavilion, 4th Floor | [address] | high-risk | | | | [place], [place] | [phone] | medication; Vitamin | | | | [address] | | D deficiency | | | | [phone] | | | +--------+---------+ + + + [...] + + + | Blood Pressure | 122/76 | 09/27/2016 1:20 PM | | | | | PDT [...] + + + + | Weight | 77.5 kg (170 lb 13.7 | 09/27/2016 1:20 PM | | | | oz) | PDT | | + + + + + | Height | - | - | | + + + + + | Body Mass Index | 31.24 | 07/30/2016 1:51 PM | | | | | PDT | | + + + + + documented in this encounter Progress Notes Afshan Wright FNP - 09/27/2016 1:00 PM PDTFormatting of this note might be differe nt from the original. Progress Note Clinic: Rheumatology Reason for follow-up: Chief Complaint Patient presents with RA - Rheumatoid arthritis Medication management Follow-up visit Ms. Sandrita Queen was last July 30, 2016. "I have been doing fine." Last wk left knee and wrist have become tender. Wrist has sharp pain when she has to lift anything. Left knee is a throbbing pain. No redness, swelling or warmth. Pain is 5/10. Problems w/ driving. Hurts after period of inactivity. Much better w/ activity. No other joints painful, red, warm or swollen. One month ago was ill for 2wks w/ a cold. EMS 30min. Works on her feet. ROS: General: Intermittent fever, weight loss >10#, [...] vomiting, constipation, diarrhea, m dedra. : Dysuria, MOLD SETTER problems, sexual dysfunction. Neuro: Dizziness, loss of [...] skin (SUBC) every seven days. LABEL IN [place]STR[place]. DISCONTINUE ALL XELJANZ REFILLS. ergocalciferol (VITAMIN D2) 50,000 unit oral capsule Take 1 capsule by mouth every nelson n days. LABEL IN [place]STR[place]. Indications: Vitamin D Deficiency folic acid 1 mg oral tablet Take 1 tablet by mouth once daily. MUST BE TAKEN WHEN USING METHOTREXATE (LABEL IN [place]). ibuprofen (ADVIL) 100 mg oral tablet Take 100 mg by mouth every six hours as needed. methotrexate 25 mg/mL injection solution Inject 1 mL into the muscle (IM) every seven d ays. Indications: RHEUMATOID ARTHRITIS No current facility-administered medications for this visit. Allergies: Review of patient's allergies indicates no known allergies. Social History: Dominga reports that she has never smoked. She does not have any smokeless to bacco history on file. Family History: Family history includes Non-contributory in her brother, father, mother, an d sister. Physical Exam: BP 122/76 | Wt 77.5 kg (170 lb 13.7 oz) | BMI 31.24 kg/(m^2) Pain Score: 7 Rapid 3 MHAQ: 1.3 (09/27/16 1300) PAIN LEVEL: 5 (09/27/16 1300) GLOBAL ASSESSMENT: 5 (09/27/16 1300) RAPID 3: 3.77 (09/27/16 1300) Gen: Well nourished, well developed, in NAD HEENT: unremarkable Ext: No clubbing, cyanosis, or edema M/S: LARIOS 28; +left ankle TTP; b/l wrists fixed deformity limiting flex/ext/ ab/ad Skin: moderate varicosities left LE Neuro: normal Labs: Lab Results Component Value Date WBC 7.84 09/27/2016 RBC 4.43 09/27/2016 HCT 39.1 09/27/2016 HB 13.0 09/27/2016 MCV 88.3 09/27/2016 MCHC 33.2 09/27/2016 PLT 229 09/27/2016 NEUTROPERC 53.1 09/27/2016 LYMPHPERC 38.0 09/27/2016 MONOPERC 1.8 (L) 09/27/2016 EOSPERC 2.6 09/27/2016 BASOPERC 2.7 (H) 09/27/2016 NEUTROPHILCO 4.16 09/27/2016 GLU 212 (H) 09/27/2016 BUN 12 09/27/2016 CR 0.54 (L) 09/27/2016 TP 7.9 09/27/2016 ALB 3.8 09/27/2016 CA 9.1 09/27/2016 TBILI 0.6 09/27/2016 AST 65 (H) 09/27/2016 NA 138 09/27/2016 K 3.5 09/27/2016 CL 102 09/27/2016 BICARB 29 09/27/2016 ALT 93 (H) 09/27/2016 Lab Results Component Value Date ESR 23 09/27/2016 ESR 31 07/30/2016 ESR 31 03/27/2016 Lab Results Component Value Date [id number] 8.2 09/27/2016 Lab Results Component Value Date RF 52 (H) 11/29/2015 ANTICCP 186 (H) 11/29/2015 ESR 23 (H) 09/27/2016 CRP 6.8 07/30/2016 Impression: This is a 36 y.o. female here for follow up of seropositive RA. Also addresse d: Vitamin d deficency and elevated liver function. Functional Assessment: RHM FLOWSHEET 07/30/2016 07/30/2016 09/27/2016 09/27/2016 RAPID 3 4 3.77 Total Tender Joints 11 7 Total Swollen Joints 6 1 ESR 31 23 Global Health Value 5 5 DAS28 Score 5 4 Disease Activity Level Moderate Moderate Plan: 1. Ms. Sandrita Queen is currently having a small RA flare w/ involvement of her left kne e and wrist which contributes to her pain assessment at /10 and global assessment at /10. Her tender and swollen joint count and ESR are improved so we will maintain current therapy . 2. Her vitamin D remains extremely low but she is using the 50,000IU/wk and this was confir med. If we cannot achieve even moderate repletion we should consider a malabsorptive syndro me. 3. Her AST and ALT remain mildly elevated but her glucose is extremely high as well. It's asked that she continue monthly monitoring of CMP, CBC through her PCP monthly. 4. Clinical reeval at 3mo. Sooner if needed. [facility] [address] [place] [address] Mailcode: Op09 [facility], [address]th [facility] [address] Display Progress Note in MyChart: No documented in t his encounter Plan of Treatment Not on filedocumented as of this encounter Results VITAMIN D, 25-HYDROXY, SERUM (09/27/2016 2:01 PM [...] | + + + + + | [facility] | [address] | [place] [address] | | | SERVICES, CORE | CHARISSE [...] | | | LABORATORY | | | LATVIAN | | | SERVICES, | | | [...] | + + + + + | [facility] | [address] | [place] [address] | | | SHAVON, BERTHA | [address] | | | [...] + + | [facility] | [address] | [place] [address] | | | SERVICES, BERTHA | CHARISSE [...]
--- OUTSIDE RECORDS SUMMARY | ~2020-01-05 | XMS | Encounter Summary ---
Demographics + + + | Address | [address] | | | [place] [address] | + + + | Home Phone | | + + + | Preferred Language | Unknown | + + + | Marital Status | | + + + | Restorationist Affiliation | Unknown | + + + | Race | White | + + + | Ethnic Group | or | + + + Author + + + | Author | [facility] | + + + | Organization | [facility] | + + + | Address | Unknown | + + + | Phone | Unavailable | + + + Support + + +---------+ + | Name | Relationship | Address | Phone | + + +---------+ + | Brittanie Remy | ECON | Unknown | | + + +---------+ + Care Team Providers + +------+ + | Care Insurance Job Titles Name | Role | Phone | + +------+ + | Stephanie Mliler MD | PCP | | + +------+ + Reason for Visit + +--------+ + | Reason | Onset | Comments | | | Date | | + +--------+ + | Question | 11/13/ | | | | 2018 | | + +--------+ + Encounter Details +--------+ + + + + | Date | Type | Department | Care Team | Description | +--------+ + + + + | 11/13/ | Telephone | Rheumatology at | Afshan Wright | Question | | 2017 | | RAMON EdwardsP [address] [facility] | | | | | [address] | [address] | | | | | Loop Physician's | [place], [place] | | | | | Sumeet, [facility] [address] | [address] | | | | | [place], [place] | [phone] | | | | | [address] | | | | | | [phone] | | | +--------+ + + + [...] this encounter Miscellaneous Notes Telephone Encounter - Sharmila Sadler - 11/14/2017 10:32 AM PDTPatient returned call, unsu re of why we called her. Relayed Afshan's message. Patient says that she will go back to see her PCP and noted that she had zero improvement. elephone Encounter - Lavern Dubon MA - 11/14/2017 9:02 AM PDTI called the patient to relay Afshan's message, an d she did not answer. I left a voice mail instructing her to call back. Electronically howie d by Lavern Pike MA at 11/14/2017 9:03 AM PDTTelephone Encounter - Lavern Pike MA - 11/14/2017 8:59 AM PDT Afshan Wright, AUTO GLASS WORKER Lavern Pike MA Cc: P m Sophie Parekh Caller: Unspecified (Yesterday, 9:36 AM) Yes, please ask her to go see her PCP. Ask did it get better at all or just relapse? Afshan elephone Encounter - Lavern Pike MA - 11/13/2017 9:47 AM PDTRouting to provider elephone Encounter - Vasquez Christy - 11/13/2017 9: 36 AM PDTWho is calling: Dominga Contact Number: [phone] Regarding: Pt called back because she said the medication Afshan prescribed didn't help. Sh e'd said that if it hadn't worked, Afshan said she'd have her come in to get an injection. P t would like to know if that's something we could send an order to her PCP to do locally so she doesn't have to come all the way to [place]. Added her PCP as there was none on her [facility] rt. Routing To: SOPHIE Parekh documented in this encounte r Plan of Treatment Not on filedocumented as of this encounter Visit Diagnoses Not on filedocumented in this encounter"
--- OUTSIDE RECORDS SUMMARY | ~2020-01-05 | XMS | Encounter Summary ---
Demographics + + + | Address | [address] | | | [place] [address] | + + + | Home Phone [...] + + | Author | [facility] | + + + | Organization | [facility] | + + + | Address | Unknown | + + + | Phone | Unavailable | + + + Support + + +---------+ + | Name | Relationship | Address | Phone | + + +---------+ + | Brittanie Remy | ECON | Unknown | | + + +---------+ + Care Team Providers + +------+ + | Care Yeast Pumper Name | Role | Phone | + +------+ + | Stephanie Miller MD | PCP | | + +------+ + Reason for Visit + +--------+ + | Reason | Onset | Comments | | | Date | | + +--------+ + | Ankle swelling | 11/25/ | | | | 2018 | | + +--------+ + Encounter Details +--------+ + + + + | Date | Type | Department | Care Team | Description | +--------+ + + + + | 07/23/ | Telephone | Rheumatology at | Schreibman, Afshan | Ankle swelling | | 2018 | | Physicians Sumeet Buchanan, PERSONAL INJURY PARALEGAL [address] | | | | | [address] | [facility] | | | | | Loop Physician's | [facility] [place] | | | | | [address], 4th Floor | [address] | | | | | [place], [place] | [phone] | | | | | [address] | | | | | | [phone] | | | +--------+ + + + [...] Telephone Encounter - Lavern Pike MA - 11/25/2017 9:42 AM PDTI called the patient with front end technician, and she did not answer. A message was left with callback number. elephone Encounter - Trang Lynne MA - 11/25/2017 8:32 AM PDTPatient will need a dedicated driver. elephone Encounter - Deedee Lynne MA - 11/25/2017 8:31 AM PDT----- Message from SUAD Nunn sent at 11/24/2017 12:0 5 PM PDT ----- Regarding: please call pt Please check in with pt and see how her ankle is doing? Carrie documented in this encounter Plan of Treatment Not on filedocumented as of this encounter Visit Diagnoses Not on filedocumented in this encounter"
--- OUTSIDE RECORDS SUMMARY | ~2020-01-05 | XMS | Encounter Summary ---
Demographics + + + | Address | [address] | | | [place] [address] | + + + | Home Phone [...] Team Providers + +------+ + | Care Mesh Man Name | Role | Phone | + [...] Description | +--------+--------+ + + + | 08/13/ | Refill | Rheumatology at | Afshan Wright | Refill Request | | 2017 | | SUAD Edwards [address] | | | | | [address] | [address] | | | | | Loop Physician's | [place], [place] | | | | | [address], 4th Floor | [address] | | | | | [place], [place] | [phone] | | | | | [address] | | | | | | [phone] | | | +--------+--------+ + + + [...]
--- OUTSIDE RECORDS SUMMARY | ~2020-01-05 | XMS | Encounter Summary ---
Demographics + + + | Address | [address] | | | [place] [address] | + + + | Home Phone | | + + + | Preferred Language | Unknown | + + + | Marital Status | | + + + | Mormon Affiliation | Unknown | + + + | Race | White | + + + | Ethnic Group | or | + + + Author + + + | Author | [facility] | + + + | Organization | [facility] | + + + | Address | Unknown | + + + | Phone | Unavailable | + + + Support + + +---------+ + | Name | Relationship | Address | Phone | + + +---------+ + | Brittanie Remy | ECON | Unknown | | + + +---------+ + Care Team Providers + +------+ + | Care Client Onboarding Analyst Name | Role | Phone | + +------+ + | Isacc Chi | PCP | | + +------+ + Reason for Visit + +--------+ + | Reason | Onset | Comments | | | Date | | + +--------+ + | Medication Question | 10/30/ | prednisone | | | 2016 | | + +--------+ + Encounter Details +--------+ + + + + | Date | Type | Department | Care Team | Description | +--------+ + + + + | 10/30/ | Telephone | Rheumatology at | Afshan Wright | Medication Question | | 2017 | | Physicians Sumeet Buchanan, PRODUCTION CONTROL COORDINATOR [address] | (prednisone) | | | | [address] | [address] | | | | | Loop Physician's | [place], [place] | | | | | [address], 4th Floor | [address] | | | | | [place], [place] | [phone] | | | | | [address] | | | | | | [phone] | | | +--------+ + + + [...] Telephone Encounter - Jessica Aleman LPN - 11/01/2016 5:04 PM PDTCalled to speak with benita antony with turkmen interpretor to get more information from patient. Patient states her feet were so swollen that she couldn't walk. Patient states she has since gotten prednisone, and although painful still she is feeling much better. Advised patient to call back in 7 days if she is still not feeling better, advised to call back right away if her symptoms get worse. Patient agreeable. Patient also advised that she needs an HAYDEE signed for her friend Ana in order for us to talk to her. Patient agreeable. Patient authorized an okay to leave detai led message with interpretor Clayton on the line. Patient understands she may revoke this at anytime. No further questions at this time, closing encounter. elephone Encounter - Jessica Aleman LPN - 2016 9:25 AM PDTLVM for patient to call back. Patient needs HAYDEE for friend "Ana" prior t o speaking to "Ana" on patient's behalf. No HAYDEE currently on file. elephone Encounter - Ofelia Espinoza MA - 10/31/2016 9:07 AM PDTMA Note: Routing to RABBLER to triage. elephone Encounter - Vasquez Christy - 10/30/2016 1:07 PM PDTWho is calling: Dominga Perez Contact Number: [phone] Regarding: Dominga is having a flare-up and is hoping to be able to use prednisone again. She would like to speak with Afshan or a medical assistant cardiology. She can still be reached at her appiris number. Routing To: SOPHIE Parekh documented in this encounte r Plan of Treatment Not on filedocumented as of this encounter Visit Diagnoses Not on filedocumented in this encounter
--- OUTSIDE RECORDS SUMMARY | ~2020-01-05 | XMS | Encounter Summary ---
Demographics + + + | Address | [address] | | | [place] [address] | + + + | Home Phone [...] Team Providers + +------+ + | Care Telesales Professional Name | Role | Phone | + +------+ + | Isacc Chi | PCP | | + +------+ + Encounter Details +--------+ + + + + | Date | Type | Department | Care Team | Description | +--------+ + + + + | 12/26/ | Hospital | Diagnostic | | | | 2015 | Encounter | Radiology at [facility] | | | | | | [address] | | | | | | Loop Physician's | | | | | | [address], [address] Floor | | | | | | [place], [place] | | | | | | [address] | | | | | | [phone] | | | +--------+ + + + [...] + +--------+ + + + | X-RAY SPINE CERVICAL | Routin | 12/27/2015 | 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 | Results for this | | 2 VIEWS | e | 2:43 PM | rheumatoid arthritis | procedure are in the | | FLEXION/EXTENSION | | PDT | ([facility]) Neck pain | results section. | + +--------+ + + + documented in this encounter Results X-RAY SPINE CERVICAL 2 [...] | | + +---------+ + + | [facility] DEPARTMENT OF | | | | | RADIOLOGY | | | | + +---------+ + + documented in this encounter Visit Diagnoses + + | Diagnosis | + + | 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 rheumatoid arthritis (HCC) Rheumatoid arthritis | + + | Neck pain Cervicalgia | + + documented in this encounter"
--- OUTSIDE RECORDS SUMMARY | ~2020-01-05 | XMS | Encounter Summary ---
Demographics + + + | Address | [address] | | | [place] [address] | + + + | Home Phone [...] Team Providers + +------+ + | Care Equipment Operator/Laborer/Supervisor Name | Role | Phone | + +------+ + | Stephanie Miller MD | PCP | | + +------+ + Reason for Visit + + + | Reason | Comments | + + + | Financial resource | MAP letter | | assistance | | + + + Encounter Details +--------+ + + + + | Date | Type | Department | Care Team | Description | +--------+ + + + + | 05/23/ | Documentati | Rheumatology at | Afshan Wright | Financial resource | | 2019 | on | Physicians [place] | Dewayne, VIRTUALIZATION ENGINEER [address] | assistance (MAP | | | | [address] | [address] | letter) | | | | Loop Physician's | [place], [place] | | | | | [address], 4th Floor | [address] | | | | | [place], [place] | [phone] | | | | | [address] | | | | | | [phone] | | | +--------+ + + + [...]
--- OUTSIDE RECORDS SUMMARY | ~2020-01-05 | XMS | Clinical Summary ---
Demographics + + + | Address | [address] | | | [place] [address] | + + + | Home Phone | | + + + | Preferred Language | Unknown | + + + | Marital Status | | + + + | Temple Affiliation | Unknown | + + + | Race | White | + + + | Ethnic Group | or | + + + Author + + + | Author | [facility] | + + + | Organization | [facility] | + + + | Address | Unknown | + + + | Phone | Unavailable | + + + Support + + +---------+ + | Name | Relationship | Address | Phone | + + +---------+ + | Brittanie [place]y | ECON | Unknown | | + + +---------+ + Care Team Providers + +------+ + | Care News Gathering Technician Name | Role | Phone | + +------+ + | Stephanie Miller MD | PCP | | + +------+ + Source Comments [facility]Count Includes [facility] Allergies + + + + + + | Active Allergy | Reactions | Severity | Noted | Comments | | | | | Date | | + + + + + + | Methotrexate | Hepatic Dysfunction | Medium | 08/26/19 | Progressive | | | | | 18 | elevations of | | | | | | AST/ALT and alk phos | + + + + + + Medications + + + +---------+------+------+-------+ | Medication | Sig | Dispensed | Refills | Star | End | Statu | | | | | | t | Date | s | | | | | | Date | | | + + + +---------+------+------+-------+ | ibuprofen (ADVIL) | Take 100 mg by mouth | | 0 | | | Activ | | 100 mg oral tablet | every six hours as | | | | | e | | | needed. | | | | | | + + + +---------+------+------+-------+ | folic acid 1 mg | Take 1 tablet by | 30 | 11 | 11/2 | | Activ | | oral tablet | mouth once daily. | tablet | | 2/20 | | e | | | MUST BE TAKEN WHEN | | | 16 | | | | | USING METHOTREXATE | | | | | | | | (LABEL IN [place]). | | | | | | + + + +---------+------+------+-------+ | metFORMIN 500 mg | Take 1 tablet by | | 0 | 05/2 | | Activ | | oral tablet | mouth two times | | | 5/20 | | e | | | daily. | | | 18 | | | + + + +---------+------+------+-------+ | omeprazole 20 mg | Take 1 capsule by | | 0 | 05/2 | | Activ | | oral capsule,delayed | mouth once daily. | | | 5/20 | | e | | release(DR/EC) | | | | 18 | | | + + + +---------+------+------+-------+ | VITAMIN D2 50,000 | TAKE 1 CAPSULE BY | 12 | 0 | 10/1 | | Activ | | unit oral capsule | MOUTH ONCE A WEEK | capsule | | 01/23 | | e | | | | | | 18 | | | + + + +---------+------+------+-------+ | abatacept | Inject 125 mg under | 12 | 3 | 11/2 | | Activ | | (ORENCIA) 125 mg/mL | the skin (SUBC) | Syringe | | 8/20 | | e | | subcutaneous syringe | every seven days. | | | 18 | | | | | LABEL IN KENYAN. | | | | | | + + + +---------+------+------+-------+ Active Problems + + + | Problem | Noted Date | + + + | Vitamin D deficiency | 07/30/2016 | + + + | Long-term use of high-risk medication | 12/27/2015 | + + + | 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 rheumatoid arthritis | 11/29/2015 | + + + + + | Overview: Background information of RA:First symptoms | | started: 10mo before dx Date of diagnosis: 2007ACPA: +186RF: | | +52DMARDs: Methotrexate; HCQ, SSZ and lefunomide | | failureBiologic: Abatacept; adalimumab (failure after efficacy | | for 6yrs)X-ray: Bilateral hands and feet 11/2015 ([facility])Erosion: | | +feet | |Biologic: Abatacept; adalimumab (failure after efficacy for 6yrs) | |X-ray: Bilateral hands and feet 11/2015 ([facility]) | |Erosion: +feet | + + Immunizations + + + + | Name | Administration Dates | Next Due | + + + + | Influenza, | 02/19/2018, 01/31/2017, 03/27/2016 | | | injectable, | | | | quadrivalent, | | | | preservative free | | | | (IIV4) | | | + + + + | PCV13 | 11/29/2015 | | + + + + | Pneumococcal 23 | 01/31/2017 | | + + + + Family History + + +------+ + | Medical History | Relation | Name | Comments | + + +------+ + | Non-contributory | Brother | | | + + +------+ + | Non-contributory | Father | | | + + +------+ + | Non-contributory | Mother | | | + + +------+ + | Non-contributory | Sister | | | + + +------+ + + +------+--------+ + | Relation | Name | Status | Comments | + +------+--------+ + | Brother | | | | + +------+--------+ + | Father | | | | + +------+--------+ + | Mother | | | | + +------+--------+ + | Sister | | | | + +------+--------+ + Social History + +-------+ +--------+------+ | [...] on file | | + + + Last Filed Vital Signs + + + [...] | | + + + + + Plan of Treatment + + + + + | Health Maintenance | Due Date | Last | Comments | | | | Done | | + + + + + | Influenza (Flu) | | 02/20/20 | | | vaccination (#1) | 0 | 16, | | | | | 02/01/20 | | | | | 17, | | | | | 03/27/20 | | | | | 16 | | + + + + + | Pneumococcal | Completed | 02/01/20 | | | vaccination | | 17, | | | | | 11/29/19 | | | | | 16, | | | | | 03/25/20 | | | | | 09 | | + + + + + Results Not on filefrom Last 3 Months
--- OUTSIDE RECORDS SUMMARY | ~2020-01-05 | XMS | Encounter Summary ---
Demographics + + + | Address | [address] | | | [place] [address] | + + + | Home Phone | | + + + | Preferred Language | Unknown | + + + | Marital Status | | + + + | Catholic Affiliation | Unknown | + + + | Race | White | + + + | Ethnic Group | or | + + + Author + + + | Author | [facility] | + + + | Organization | [facility] | + + + | Address | Unknown | + + + | Phone | Unavailable | + + + Support + + +---------+ + | Name | Relationship | Address | Phone | + + +---------+ + | Brittanie Remy | ECON | Unknown | | + + +---------+ + Care Team Providers + +------+ + | Care Plant Engineer Name | Role | Phone | + +------+ + | Stephanie Miller MD | PCP | | + +------+ + Reason for Visit + +--------+ + | Reason | Onset | Comments | | | Date | | + +--------+ + | Ankle pain | 11/15/ | | | | 2017 | | + +--------+ + Encounter Details +--------+ + + + + | Date | Type | Department | Care Team | Description | +--------+ + + + + | 11/15/ | Telephone | Rheumatology at | Jorge, | Ankle pain | | 2017 | | [address] | MD [address] | | | | | [address] | [address] | | | | | Loop Physician's | [place], [place] | | | | | [place], [facility] Floor | [address] | | | | | [place], [place] | [phone] | | | | | [address] | | | | | | [phone] | | | +--------+ + + + [...] this encounter Miscellaneous Notes Telephone Encounter - Moe Patel MD - 11/15/2017 6:23 PM PDTReceived call from oscar cote's PCP Dr. Miller. Patient being seen by provider today but continues to report no sig nificant improvement with symptoms of R ankle pain. No concern for septic joint at this time however. Will refer to patient's rheumatology provider here for consideration of injection. documented in this encounter Plan of Treatment Not on filedocumented as of this encounter Visit Diagnoses Not on filedocumented in this encounter"
--- OUTSIDE RECORDS SUMMARY | ~2020-01-05 | XMS | Encounter Summary ---
Demographics + + + | Address | [address] | | | [place] [address] | + + + | Home Phone | | + + + | Preferred Language | Unknown | + + + | Marital Status | | + + + | Pentecostalism Affiliation | Unknown | + + + | Race | White | + + + | Ethnic Group | or | + + + Author + + + | Author | [facility] | + + + | Organization | [facility] | + + + | Address | Unknown | + + + | Phone | Unavailable | + + + Support + + +---------+ + | Name | Relationship | Address | Phone | + + +---------+ + | Brittanie Remy | ECON | Unknown | | + + +---------+ + Care Team Providers + +------+ + | Care Energy And Conservation Technician Name | Role | Phone | + +------+ + | Isacc Chi | PCP | | + +------+ + Encounter Details +--------+ + + + + | Date | Type | Department | Care Team | Description | +--------+ + + + + | 12/28/ | Records Management Engineer | Rheumatology at | Vinay Florian, | | | 2015 | | Physicians [place] | PharmD [address] | | | | | [address] | [facility] | | | | | Loop Physician's | [place], [place] | | | | | [place], [facility] Floor | [address] | | | | | [place], [place] | | | | | | [address] | | | | | | [phone] | | | +--------+ + + + [...] Telephone Encounter - Vinay Florian PharmD - 12/29/2015 3:25 PM PDT Requested Prescriptions Pending Prescriptions Disp Refills abatacept (ORENCIA) 125 mg/mL subcutaneous syringe 12 Syringe 3 Sig: Inject 125 mg under the skin (SUBC) every seven days. LABEL IN FRENCH. DISCONTINUE ALL XELJANZ REFILLS. documented in this e ncounter Plan of Treatment Not on filedocumented as of this encounter Visit Diagnoses Not on filedocumented in this encounter"
--- OUTSIDE RECORDS SUMMARY | ~2020-01-05 | XMS | Encounter Summary ---
Demographics + + + | Address | [address] | | | [place] [address] | + + + | Home Phone | | + + + | Preferred Language | Unknown | + + + | Marital Status | | + + + | Episcopal Affiliation | Unknown | + + + | Race | White | + + + | Ethnic Group | or | + + + Author + + + | Author | [facility] | + + + | Organization | [facility] | + + + | Address | Unknown | + + + | Phone | Unavailable | + + + Support + + +---------+ + | Name | Relationship | Address | Phone | + + +---------+ + | Brittanie Remy | ECON | Unknown | | + + +---------+ + Care Team Providers + +------+ + | Care Extrusion Supervisor Name | Role | Phone | + [...] | | | | arthritis, | [place] | [facility] | | | | | unspecified | Medical | Loop | | | | | | [address] | Physician's | | | | | | [address] | Pav[address], [address] | | | | | | Street | Floor | | | | | | [place], [place] | [place], [place] | | | | | | [address] | [address] | | | | | | Phone: | Phone: | | | | | | [phone] | [phone] | | | | | | Fax: | Fax: | | | | | | [phone] | [phone] | +--------+--------+ + + + + Encounter Details +--------+---------+ + + + | Date | Type | Department | Care Team | Description | +--------+---------+ + + + | 03/27/ | Office | Rheumatology at | Afshan Wright | 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 | | 2016 | Visit | Physicians [place] Buchanan, SPECTRAL SCIENTIST [address] | rheumatoid arthritis | | | | [address] | [address] | ([facility]) (Primary Dx); | | | | Loop Physician's | [place], [place] | Long-term use of | | | | [address], [address]th Floor | [address] | high-risk medication | | | | [place], [place] | [phone] | | | | | [address] | | | | | | [phone] | | | +--------+---------+ + + + [...] this encounter Last Filed Vital Signs + +---------+ + + | Vital Sign | Reading | Time Taken | Comments | + +---------+ + + | Blood Pressure | 135/76 | 03/27/2016 10:17 AM | | | | | PST | | + +---------+ + + | Pulse | 89 | 03/27/2016 10:17 AM | | | | | PST | | + +---------+ + + | Temperature | - | - | | + +---------+ + + | Respiratory Rate | - | - | | + +---------+ + + | Oxygen Saturation | - | - | | + +---------+ + + | Inhaled Oxygen | - | - | | | Concentration | | | | + +---------+ + + | Weight | - | - | | + +---------+ + + | Height | - | - | | + +---------+ + + | Body Mass Index | - | - | | + +---------+ + + documented in this encounter Progress Notes Ofelia Espinoza MA - 03/27/2016 9:30 AM PST MA Note: 0.5 ml of influenza was administered to L Deltoid with no incident per Afshan Wright. C urrent VIS was given to patient. The patient was screened for the following contraindications to influenza vaccine and respo nses were as follows: Prior history of a reaction to flu vaccine? No Febrile illness today? No Allergy to eggs, gelatin, or antibiotic? No Prior history of Guillain-Marion syndrome? No Severe allergic reaction to anything requiring emergency care? No Pt tolerated injection. No questions or concerns. Afshan Schwarz FNP - 03/27/2016 9:30 AM PSTFormatting of this note might be different from the [facility]ul[facility] Progress Note Clinic: Rheumatology Reason for follow-up: Chief Complaint Patient presents with RA - Rheumatoid arthritis Medication management Follow-up visit Ms. Sandrita Queen was last seen December 27, 2015. Just started abatacept in the last few weeks b/c she had been ill. She has been symptom free for the last 2 wks. Doesn't note any side effects w/ the addition of abatacept. Of all her current joint sx- the knees have been the worst- L>R. The left knee swells but not so much on the right. Working 25-30 hours/ wk. Works totally on her feet. Ankles are the only issue during work. Sleeping well. EMS 30 min now (decreased from 120min). No exercise. RIGHT HANDED FEMALE ROS: General: [...] vomiting, constipation, diarrhea, m dedra. 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 Neuro: Dizziness, loss of [...] skin (SUBC) every seven days. LABEL IN SUDANESE. DISCONTINUE ALL XELJANZ REFILLS. folic acid 1 mg oral tablet Take 1 tablet by mouth once daily. MUST BE TAKEN WHEN USING METHOTREXATE (LABEL IN SUDANESE). ibuprofen (ADVIL) 100 mg oral tablet Take 100 mg by mouth every six hours as needed. methotrexate 25 mg/mL injection solution Inject 1 mL into the muscle (IM) every seven d ays. Indications: RHEUMATOID ARTHRITIS predniSONE 5 mg oral tablet Take 1 tablet by mouth once daily. LABEL IN SUDANESE (DOSE DECREASE) No current facility-administered medications for this visit. Allergies: Review of patient's allergies indicates no known allergies. Social History: [place] reports that she has never smoked. She does not have any smokeless to bacco history on file. Family History: Family history includes Non-contributory in her brother, father, mother, an d sister. Physical Exam: BP 135/76 | Pulse 89 Pain Score: 7 Rapid 3 MHAQ: 2.7 (03/27/16 1000) PAIN LEVEL: 3 (03/27/16 1000) GLOBAL ASSESSMENT: 3 (03/27/16 1000) RAPID 3: 2.9 (03/27/16 1000) Gen: Well nourished, well developed, in NAD HEENT: unremarkable Ext: No clubbing, cyanosis, or edema M/S: LARIOS 28 not working- see detail below Skin: moderate varicosities left LE Neuro: normal Joints: Right wrist t/s Right 3rd MCP and 1st PIP t/ significantly swollen Left cmc t/s Left knee t/s (mild-moderate effusion) Labs: Lab Results Component Value Date WBC 8.64 11/29/2015 RBC 4.19 11/29/2015 HCT 37.2 11/29/2015 HB 12.3 11/29/2015 MCV 88.8 11/29/2015 MCHC 33.1 11/29/2015 PLT 255 11/29/2015 NEUTROPERC 64.6 11/29/2015 LYMPHPERC 23.3 11/29/2015 MONOPERC 8.4 11/29/2015 EOSPERC 2.7 11/29/2015 BASOPERC 0.7 11/29/2015 NEUTROPHILCO 5.58 11/29/2015 GLU 91 11/29/2015 BUN 12 11/29/2015 CR 0.56 (L) 11/29/2015 TP 8.3 (H) 11/29/2015 ALB 4.0 11/29/2015 CA 9.3 11/29/2015 TBILI 0.6 11/29/2015 AP 109 (H) 11/29/2015 AST 30 11/29/2015 NA 137 11/29/2015 K 3.8 11/29/2015 CL 102 11/29/2015 BICARB 26 11/29/2015 ALT 57 11/29/2015 Lab Results Component Value Date ESR 29 (H) 11/29/2015 Impression: This is a 35 y.o. [...] Disease Activity Level High RHM FLOWSHEET 03/27/2016 RAPID 3 2.9 Total Tender Joints Total Swollen Joints ESR Global Health Value DAS28 Score Disease Activity Level Plan: 1. Has only recently started abatacept 2 wks ago. She is seeing some improvement but it's really too early. She is tolerating the medication well w/o side effects and she remains on methotrexate. There is a question of whether she is taking folic acid 1mg daily? A new Rx for folic acid 1mg with a years worth of refills was sent. 2. Begin prednisone taper- decrease from 10mg to 5mg daily. She understands how to taper i f she starts feeling significantly better. 3. Influenza vaccination today. 4. Labs: CBC, CMP, ESR/CRP and vitamin D 25-OH. 5. Clinical reeval at 2 mo. Sooner if needed. [facility] [address] [place] [address] Mailcode: [id number] [facility], 4th [facility] [address] Display Progress Note in [employer]: No documented in t his encounter Plan of Treatment Not on filedocumented as of this encounter Results VITAMIN D, 25-HYDROXY, SERUM (03/27/2016 11:40 AM PST) + +---------+ + + + | Component | Value | Ref Range | Performed | Pathologist | | | | | At | Signature | + +---------+ + + + | VITAMIN D | 9.5 (L) | 30 - 80 ng/mL | [...] [facility] | [address] | [place] [address] | | | SERVICES, CORE | [address] | | | + + + + + C-REACTIVE PROTEIN (03/27/2016 11:40 AM PST) + +-------+ + + + | Component | Value | Ref Range | Performed | Pathologist | | | | | At | Signature | + +-------+ + + + | C-REACTIVE | 9.4 | <10.0 mg/L | [facility] | | [...] [facility] | [address] | [place] [address] | | | SERVICES, CORE | [address] | | | + + + + + COMPLETE METABOLIC SET (NA,K,CL,CO2,BUN,CREAT,GLUC,CA,AST,ALT,BILI TOTAL,ALK PHOS,ALB,PROT TOTAL) (03/27/2016 11:40 AM PST) + + + + + + | Component | Value | Ref Range | Performed | Pathologist | | | | | At | Signature | + + + + + + | GLUCOSE, | 261 (H) | 60 - 99 mg/dL | [facility] | | | PLASMA | | | LABORATORY | | | (LAB) | | | SERVICES, | | | | | | CORE | | + + + + + + | BUN, PLASMA | 13 | 6 - 20 mg/dL | [facility] | | | (LAB) | | | LABORATORY | | | | | | SERVICES, | | | | | | CORE | | + + + + + + | CREATININE | 0.48 (L) | 0.60 - 1.10 | [facility] | | | PLASMA | | mg/dL | LABORATORY | | | (LAB) | | | SERVICES, | | | | | | CORE | | + + + + + + | EGFR | >60 | >60 mL/min | [facility] | | | - | | | LABORATORY | | | PRYDEINIG | | | SERVICES, | | | [...] + + + + | TOTAL | 8.4 [...] + + + + | AST(SGOT) | 34 | <=41 U/L | [facility] | | | | | | LABORATORY | | | | | | SERVICES, | | | | | | CORE | | + + + + + + | ALT (SGPT) | 73 (H) | <=60 U/L | [facility] | | | | | | LABORATORY | | | | | | SERVICES, | | | | | | CORE | | + + + + + + | ANION GAP | 11 | mmol/L | [facility] | | | | | | LABORATORY | | | | | | SERVICES, | | | | | | CORE | | + + + + + + | ANION | 11 | 4 - 11 mmol/L | [facility] [...] + | [facility] | [address] | [place] [address] | | | SERVICES, CORE | [address] | | | + + + + + SEDIMENTATION RATE (03/27/2016 11:40 AM PST) + +--------+ + + + | Component [...] | + + + + + | [facility] | [address] | [place] [address] | | | SERVICES, CORE | [address] | | | + + + + + documented in this encounter Visit Diagnoses + + | Diagnosis | + + | 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 rheumatoid arthritis (HCC) - Primary Rheumatoid arthritis | + + | Long-term use of high-risk medication | + + documented in this encounter"
--- OUTSIDE RECORDS SUMMARY | ~2020-01-05 | XMS | Encounter Summary ---
Demographics + + + | Address | [address] | | | [place] [address] | + + + | Home Phone | | + + + | Preferred Language | Unknown | + + + | Marital Status | | + + + | Holiness Affiliation | Unknown | + + + | Race | White | + + + | Ethnic Group | or | + + + Author + + + | Author | [facility] | + + + | Organization | [facility] | + + + | Address | Unknown | + + + | Phone | Unavailable | + + + Support + + +---------+ + | Name | Relationship | Address | Phone | + + +---------+ + | Brittanie Remy | ECON | Unknown | | + + +---------+ + Care Team Providers + +------+ + | Care Vice President Global Digital Marketing Name | Role | Phone | + +------+ + | Stephanie Miller MD | PCP | | + +------+ + Reason for Visit + +--------+ + | Reason | Onset | Comments | | | Date | | + +--------+ + | Refill Request | 01/15/ | prednisone | | | 2016 | | + +--------+ + Encounter Details +--------+--------+ + + + | Date | Type | Department | Care Team | Description | +--------+--------+ + + + | 01/15/ | Refill | Rheumatology at | Afshan Wright | Refill Request | | 2017 | | Physicians [place] Buchanan LAW FIRM PARTNER [address] | (prednisone) | | | | [address] | [address] | | | | | Loop Physician's | [place], [place] | | | | | [address], 4th Floor | [address] | | | | | [place], [place] | [phone] | | | | | [address] | | | | | | [phone] | | | +--------+--------+ + + + [...] Telephone Encounter - Jessica Aleman LPN - 01/17/2017 3:07 PM PDTCalled patient with span kurt interpretor on the line. Patient states her hands have not improved, still painful. Shanon ent states bilateral wrist tenderness, it is difficult to hold items. Patient has some swell ing in a couple fingers and her wrists but no other swelling. Patient denies redness, rash. Patient cannot come in any earilier for an appointment and will plan to see Afshan hennessy scheduled apt on 01/31/17 at 1300. Patient is worried that she may have to cancel apt [facility] if the roads do not open up (refrencing [address] closure) Routing to Yves as an FYIElectronically signed by Jessica Aleman LPN at 7 3:10 PM PDTTelephone Encounter - Afshan Wright FNP - 01/15/2017 6:20 PM PDTPleas e call patient and see why she requested this? Is she having a flare of her arthritis. I d id approve 10 days worth only to use for a flare. CS elephone Encounter - Deedee Lynne MA - 01/15/2017 3:11 PM PDT Requested Prescriptions Pending Prescriptions Disp Refills PREDNISONE 5 mg oral tablet [Pharmacy Med Name: PredniSONE 5MG TAB] 60 tablet 1 Sig: TAKE TWO TABLETS BY MOUTH ONCE DAILY FOR RHEUMATOID ARTHRITIS [facility] [phone] [place] [address] Next Appointment in [facility] is on 01/31/17 at 1:00 pm with RAMON Nunn. documented in this e ncounter Plan of Treatment Not on filedocumented as of this encounter Visit Diagnoses Not on filedocumented in this encounter"
--- OUTSIDE RECORDS SUMMARY | ~2020-01-05 | XMS | Encounter Summary ---
Demographics + + + | Address | [address] | | | [place] [address] | + + + | Home Phone [...] | Author | [facility] | + + + | Organization | [facility] | + + + | Address | Unknown | + + + | Phone | Unavailable | + + + Support + + +---------+ + | Name | Relationship | Address | Phone | + + +---------+ + | Brittanie Remy | ECON | Unknown | | + + +---------+ + Care Team Providers + +------+ + | Care Biodiesel Product Development Manager Name | Role | Phone | + +------+ + | Isacc Chi | PCP | | + +------+ + Encounter Details +--------+------+ + + + | Date | Type | Department | Care Team | Description | +--------+------+ + + + | 03/27/ | Lab | Laboratory at [facility] | | Long-term use of | | 2015 | | [address] | | high-risk | | | | Loop Physician's | | medication; | | | | Pavilion, 3rd floor | | 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 | | | | [place], [place] | | rheumatoid arthritis | | | | [address] | | ([facility]) | | | | [phone] | | | +--------+------+ + + + [...] CBC AND AUTO DIFF | Routin | 03/27/2016 | Long-term use of | Results for this | | | e | 11:40 AM | high-risk medication | procedure are in the | | | | PST | | results section. | + +--------+ + + + | CBC, WITH | Routin | 03/27/2016 | Long-term use of | Results for this | | DIFFERENTIAL | e | 11:40 AM | high-risk medication | procedure are in the | | | | PST | | results section. | + +--------+ + + + | VITAMIN D, | Routin | 03/27/2016 | 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 | Results for this | | 25-HYDROXY, SERUM | e | 11:40 AM | rheumatoid arthritis | procedure are in the | | | | PST | ([facility]) | results section. | + +--------+ + + + | COMPLETE METABOLIC | Routin | 03/27/2016 | Long-term use of | Results for this | | SET | e | 11:40 AM | high-risk medication | procedure are in the | | (NA,K,CL,CO2,BUN,CRE | | PST | | results section. | | AT,GLUC,CA,AST,ALT,B | | | | | | ALEN TOTAL,ALK | | | | | | PHOS,ALB,PROT TOTAL) | | | | | + +--------+ + + + | C-REACTIVE PROTEIN | Routin | 03/27/2016 | 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 | Results for this | | | e | 11:40 AM | rheumatoid arthritis | procedure are in the | | | | PST | ([facility]) | results section. | + +--------+ + + + | SEDIMENTATION RATE | Routin | 03/27/2016 | 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 | Results for this | | | e | 11:40 AM | rheumatoid arthritis | procedure are in the | | | | PST | ([facility]) | results section. | + +--------+ + + + documented in this encounter Results CBC AND AUTO DIFF (03/27/2016 11:40 AM PST) + + + + + + | Component | Value | Ref Range | Performed | Pathologist | | | | | At | Signature | + + + + + + | WHITE CELL | 11.44 (H) | 3.50 - 10.80 | [facility] | | | COUNT | | K/cu mm | LABORATORY | | | | | | SERVICES, | | | | | | CORE | | + + + + + + | RED CELL | 4.52 | 4.00 - 5.20 | [facility] | | | COUNT | | M/cu mm | LABORATORY | | | | | | SERVICES, | | | | | | CORE | | + + + + + + | HEMOGLOBIN | 13.1 | 12.0 - 16.0 | [facility] | | | | | g/dL | LABORATORY | | | | | | SERVICES, | | | | | | CORE | | + + + + + + | HEMATOCRIT | 40.0 | 36.0 - 46.0 % | [facility] | | | | | | LABORATORY | | | | | | SERVICES, | | | | | | CORE | | + + + + + + | MCV | 88.5 | 80.0 - 96.0 fL | [facility] | | | | | | LABORATORY | | | | | | SERVICES, | | | | | | CORE | | + + + + + + | MCHC | 32.8 | 33.0 - 35.5 | [facility] | | | | | g/dL | LABORATORY | | | | | | SERVICES, | | | | | | CORE | | + + + + + + | RDW SD | 42.6 | 35.1 - 46.3 fL | [facility] | | | | | | LABORATORY | | | | | | SERVICES, | | | | | | CORE | | + + + + + + | PLATELET | 275 | 150 - 400 K/cu | [facility] | | | COUNT | | mm | LABORATORY | | | | | | SERVICES, | | | | | | CORE | | + + + + + + | MPV | 11.6 | 9.7 - 12.3 fL | [facility] [...] + + + + | NEUTROPHIL | 79.5 (H) | 50.0 - 70.0 % | [facility] | | | % | | | LABORATORY | | | | | | SERVICES, | | | | | | CORE | | + + + + + + | LYMPHOCYTE | 14.5 (L) | 18.0 - 42.0 % | [facility] | | | % | | | LABORATORY | | | | | | SERVICES, | | | | | | CORE | | + + + + + + | MONOCYTE % | 4.5 | 3.5 - 9.0 % | [facility] | | | | | | LABORATORY | | | | | | SERVICES, | | | | | | CORE | | + + + + + + | EOS % | 0.2 (L) | 1.0 - 3.0 % | [facility] | | | | | | LABORATORY | | | | | | SERVICES, | | | | | | CORE | | + + + + + + | BASO % | 0.4 | 0.0 - 2.0 % | [facility] [...] + + + + | NEUTROPHIL | 9.09 (H) | 1.80 - 7.70 | [facility] | | | # | | K/cu mm | LABORATORY | | | | | | SERVICES, | | | | | | CORE | | + + + + + + | LYMPHOCYTE | 1.66 | 1.00 - 4.80 | [facility] | | | # | | K/cu mm | LABORATORY | | | | | | SERVICES, | | | | | | CORE | | + + + + + + | MONOCYTE # | 0.52 | 0.10 - 0.90 | [facility] | | | | | K/cu mm | LABORATORY | | | | | | SERVICES, | | | | | | CORE | | + + + + + + | EOS # | 0.02 | 0.00 - 0.50 | [facility] | [...] + + + + | IG# | 0.10 (H) | 0.00 - 0.03 | [facility] [...] + + | [facility] | [address] [facility] [address] [facility] | [place] [address] | | | SERVICES, CORE | [address] | | | + + + + + VITAMIN D, 25-HYDROXY, SERUM (03/27/2016 11:40 AM [...] + | [facility] | [address] | [place] [address] | | | SERVICES, CORE | [address] [...] [facility] | [address] | [place] [address] | | | SERVICES, CORE | [address] [...] | | | LABORATORY | | | [place] | | | SERVICES, | | | [...] | + + + + + | [facility] | [address] | [place] [address] | | | SERVICES, CORE | [address] [...] + | [facility] | [address] | [place] [address] | | | SERVICES, CORE | [address] | | | + + + + + documented in this encounter Visit Diagnoses + + | Diagnosis | + + | Long-term use of high-risk medication | + + | 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 rheumatoid arthritis (HCC) Rheumatoid arthritis | + + documented in this encounter"
--- OUTSIDE RECORDS SUMMARY | ~2020-01-05 | XMS | Encounter Summary ---
Demographics + + + | Address | [address] | | | [place] [address] | + + + | Home Phone [...] Team Providers + +------+ + | Care Bridge Worker Apprentice Name | Role | Phone | + [...] [facility] | | | | | | [address] | | | | | | Loop Physician's | | | | | | [address], [facility] | | | | | | [place], [place] | | | | | | [address] | | | | | | [phone] | | | +--------+ + + + [...] + +--------+ + + + | X-RAY FEET 2 VIEWS | Routin | 11/29/2015 | Long-term use of | Results for this | | BILATERAL | e | 12:32 PM | high-risk medication | procedure are in the | | | | PDT | | results section. | + +--------+ + + + documented in this encounter Results X-RAY FEET 2 VIEWS BILATERAL (11/29/2015 12:32 [...] | | | | | | EDIN JOHNATH[place], MDAuthor: | | | | | | [...]
--- OUTSIDE RECORDS SUMMARY | ~2020-01-05 | XMS | Encounter Summary ---
Demographics + + + | Address | [address] | | | [place] [address] | + + + | Home Phone | | + + + | Preferred Language | Unknown | + + + | Marital Status | | + + + | Samaritan Affiliation | Unknown | + + + | Race | White | + + + | Ethnic Group | or | + + + Author + + + | Author | [facility] | + + + | Organization | [facility] | + + + | Address | Unknown | + + + | Phone | Unavailable | + + + Support + + +---------+ + | Name | Relationship | Address | Phone | + + +---------+ + | Brittanie Remy | ECON | Unknown | | + + +---------+ + Care Team Providers + +------+ + | Care Stockholder Name | Role | Phone | + [...] Description | +--------+--------+ + + + | 10/30/ | Refill | Rheumatology at | Afshan Wright | Refill Request | | 2017 | | [facility] [address] | | | | | [address] | [address] | | | | | Loop Physician's | [place], [place] | | | | | [place], [address] Floor | [address] | | | | | [place], [place] | [phone] | | | | | [address] | | | | | | [phone] | | | +--------+--------+ + + + [...] Telephone Encounter - Ofelia Espinoza MA - 10/31/2016 2:22 PM PDTMA Call: Called patient on home phone and left a general VM with clinic phone number. If patient avtar ls back please contact a sash repairer to relay message below. elephone Encounter - Ofelia Espinoza MA - 10/31/2016 2:20 PM PDT Afshan Wright, [facility] 21 hours ago (4:24 PM) Please call and let her know that I did the refill and she should call if the flare is n ot broken once the prednisone is done. CS (Routing comment) elephone Encounte r - Ofelia Espinoza MA - 10/30/2016 3:49 PM PDTFormatting of this note might be differe nt from the original. REFILL REQUEST MESSAGE: IS THIS MEDICATION ON CURRENT MEDICATION LIST (YES/NO)? NO DATE OF REQUEST REC'D FROM PHARMACY/PATIENT: 10/30/2016 LAST FILLED: 07/30/2016 Pending prescriptions this encounter Medication Name Sig Last Dispense Amt Last Refill Amt Date last Refilled predniSONE 5 mg oral tablet Take 2 tablets by mouth once daily. Indications: Rheumatoid Art hritis 28 tablet 0 07/30/2016 [facility] [address] [place] [address] Last Appointment in [facility] was on 09/27/16 at 1:00 pm with Dominique Nunn LENO SEWER. Next Appointment in [facility] is on 12/27/16 at 1:00 pm with RAMON Nunn P. Last labs: 09/27/2016 Medication pended, please check for accuracy. Pharmacy verified. Routed to MD to review and sign if appropriate. documented in this encounter Plan of Treatment Not on filedocumented as of this encounter Visit Diagnoses Not on filedocumented in this encounter"
--- OUTSIDE RECORDS SUMMARY | ~2020-01-05 | XMS | Encounter Summary ---
Demographics + + + | Address | [address] | | | [place] [address] | + + + | Home Phone | | + + + | Preferred Language | Unknown | + + + | Marital Status | | + + + | Cheondoism Affiliation | Unknown | + + + | Race | White | + + + | Ethnic Group | or | + + + Author + + + | Author | [facility] | + + + | Organization | [facility] | + + + | Address | Unknown | + + + | Phone | Unavailable | + + + Support + + +---------+ + | Name | Relationship | Address | Phone | + + +---------+ + | Brittanie Remy | ECON | Unknown | | + + +---------+ + Care Team Providers + +------+ + | Care Sole Filler Name | Role | Phone | + +------+ + | Stephanie Miller MD | PCP | | + +------+ + Reason for Visit + +--------+ + | Reason | Onset | Comments | | | Date | | + +--------+ + | Financial resource | 05/21/ | ROSALES | | assistance | 2019 | | + +--------+ + Encounter Details +--------+ + + + + | Date | Type | Department | Care Team | Description | +--------+ + + + + | 05/21/ | Documentati | Medication | Jacqui Miller | Financial resource | | 2019 | on | Assistance [facility] | [address] | assistance (ORENCIA) | | | | Pharmacy [address] | [address] [place], | | | | | [address] | [place] [address] | | | | | [place], [place] | | | | | | [address] | | | | | | [phone] | | | +--------+ + + + [...] Telephone Encounter - Deedee Lynne MA - 07/11/2018 9:16 AM PST Estimada VidaPema Queen: El Medication Assistance Program (Programa de Ayuda con Medicamentos) de [facility] no puede cont inuar procesando rose documentacin para la ayuda respecto de Orencia si no cuenta con rose doc umentacin completa. Comunquese directamente con el Medication Assistance Program (Progra ma de Ayuda con Medicamentos) llamando al [phone] para continuar con jovita proceso. Aliya Lynne, CMA ele phone Encounter - Deedee Lynne MA - 07/01/2018 9:53 AM PSTSent a request to French bonilla for letter asking patient to contact [facility] to continue process. Will send to sukh jett once received. ele phone Encounter - Yu Valdovinos CPhT - 07/01/2018 9:35 AM PSTMAP Status Update MAP called patient via sign writer letterer or painter, left voicemail checking on patient's portion of 2019 [place] assistance [place]. This is [facility]'s 3rd contact with patient regarding this renewal. Next MAP follow up: none, If/When patient returns application we will continue pursuing ass istance elephone Enco steff - Jacqui Miller - 05/29/2018 12:54 PM PSTMAP Update: ORENCIA MAP faxed [employer] the provider's portion and [facility] will [facility] a [facility] for the patient once received. MAP called the patient, via cracking unit operator, confirmed she received her portion of 2019 ORENCIA application and will be mailing it back to us today. Once received we will fax comp leted application to [facility] [place] [place] for patient's 2019 re-enrollment. Next MAP follow up: 2 weeks elephone Encounter - Deedee Lynne MA - 05/22/2018 1:55 PM PSTFaxed signed provider portion of [facility] paperwork to [id number]. elephone Encounter - Jacqui Miller - 05/21/2018 3:43 PM PSTMAP Update: ORENCIA Per [place] [facility], patient's is out of refills and will be unable to get another sup ply unless a new prescription is sent. Patient's current enrollment ends with [facility] on . Per [facility] phlebotomy services representative, last shipment sent to the patient was after 04/17/19. Please s end MAP a new prescription for patient's ORENCIA medication. Once [facility] receives the prescription we will fax to [facility], the pharmacy that [facility] uses to dispense. [facility] has emailed the provider section of the patient's 2019 ORENCIA application to Aliya Lange on. Please return to [facility] once completed. Mailed patient her portion of the application. Next MAP follow up: 2 weeks documented in this encounter Plan of Treatment Not on filedocumented as of this encounter Visit Diagnoses Not on filedocumented in this encounter"
--- OUTSIDE RECORDS SUMMARY | ~2020-01-05 | XMS | Encounter Summary ---
Demographics + + + | Address | [address] | | | [place] [address] | + + + | Home Phone | | + + + | Preferred Language | Unknown | + + + | Marital Status | | + + + | Baptist Affiliation | Unknown | + + + [...] Team Providers + +------+ + | Care Horseback Riding Instructor Name | Role | Phone | + +------+ + | Stephanie Miller MD | PCP | | + +------+ + Reason for Visit + +--------+ + | Reason | Onset | Comments | | | Date | | + +--------+ + | Medication Refill | 01/31/ | | | Request | 2017 | | + +--------+ + | Scheduling | 01/31/ | | | | 2018 | | + +--------+ + Encounter Details +--------+ + + + + | Date | Type | Department | Care Team | Description | +--------+ + + + + | 01/31/ | Telephone | Rheumatology at | Afshan Wright | Medication Refill | | 2018 | | Physicians [place], [employer] [address] | Request; Scheduling | | | | [address] | [facility] | | | | | Loop Physician's | [place], [place] | | | | | [place], [address] | [address] | | | | | [place], [place] | [phone] | | | | | [address] | | | | | | [phone] | | | +--------+ + + + [...] this encounter Miscellaneous Notes Telephone Encounter - Sadaf Buckner - 02/06/2018 3:01 PM PDTAppointment scheduled for Oc t. 17 @ 11am. elephone En counter - Deedee Lynne MA - 02/04/2018 12:09 PM PDTFormatting of this note might be dif ferent from the original. Requested Prescriptions Pending Prescriptions Disp Refills abatacept (ORENCIA) 125 mg/mL subcutaneous syringe 12 Syringe 0 Sig: Inject 125 mg under the skin (SUBC) every seven days. LABEL IN FAROESE. elephone Encounter - Afshan Wright FNP - 02/03/2018 2:00 PM PDTYes, you can put her in at an 11am the next clinic I'm in (not this wk but next I believe). CC'ing to Aliya about the MAP Orencia. SUAD Nunn ARNP [facility]UMATOLOGY [facility]AC[facility] [address] [place] [address] Mailcode: Op09 [facility], [address] [facility] [address] elephone Vasquez Gomez - 01/31/2018 8:35 AM PDTWho is calling: Dominga Contact Number: [phone] Regarding: Pt requested we send a refill for orencia, which she gets through [facility] and the ap peñaloza. She also asked that we set up an appointment for a Saturday, as that's one of the only day s she can get a ride to [place]. Are we okay to schedule f/u for a Saturday? Routing To: Afshan documented in this encounte r Plan of Treatment Not on filedocumented as of this encounter Visit Diagnoses Not on filedocumented in this encounter"
[~2020-01-05 16:33] MED LIST changes: +METFORMIN HCL500 MG PO; +METOCLOPRAMIDE H5 MG PO; +OMEPRAZOLE20 MG PO; +SUCRALFATE1 GM PO
== END 2020-01-05 18:40 | disposition home or self-care (01) ==
LOC: ED 16:33
DX: K59.00 Constipation, unspecified (principal); E11.9 Type 2 diabetes mellitus without complications; M06.9 Rheumatoid arthritis, unspecified; Z79.84 Long term (current) use of oral hypoglycemic drugs
CPT/HCPCS: 74176; 80053; 81001; 83690; 84703; 85025; 96361; 96374; 99284-25; J1885; J7030